=== PATIENT | female | born 1955 ===

== ENCOUNTER 2017-03-11 07:31 | Inpatient (IN) ==
--- NOTE | 2017-03-11 08:18 | XRay Report ---
History: Shortness of breath Date: 03/11/2017 Study: Chest x-ray AP portable Comparison exam: July 01, 2016 chest x-ray There is cardiomegaly as before. The metastatic contours are unchanged. The pulmonary vasculature is not engorged. There is some increasing ill-defined density in the left retrocardiac region which could represent atelectasis or infiltrate. The lungs and pleural spaces are otherwise clear. A right subclavian multiple lead transvenous pacemaker is stable. The osseous structures are similar. Impression: Mild left lower lobe atelectasis/infiltrate. Consider early pneumonia. Cardiomegaly. Pacemaker as before PROCEDURE INTERPRETED AT [facility] DEPARTMENT OF RADIOLOGY Final Report Signed by: Dr. Mallory Harper
--- NOTE | 2017-03-11 08:26 | Emergency Department Note ---
Iraj Cespedes Gwan, am scribing for, and in the presence of, Ronaldo Finnegan MD 08:09. Sivan Cespedes Phillip K, MD, personally performed the services described in this documentation, ascribed by Linda Galo in my presence, and it is both accurate and complete 826 . Arrival - Arrival Chief Complaint: Shortness of Breath Stated Complaint: transfer from [facility] sob ED Nursing Triage Note: PT TRANSFERRED FROM [facility] FOR EVALUATION OF SHORTNESS OF BREATH AND COUGHING UP BLOOD TINGED SPUTUM SINCE THURSDAY. PT IS DUE FOR DIALYSIS TODAY. GIVEN NTG X1 AND ASA AT [facility]. Mode of Arrival: Stretcher Limitations: No Limitations Source: Patient, Old Records Reviewed, RN Notes Reviewed - History of Present Illness HPI Narrative: Pt is a 61 y/o female who was brought into the ED vis EMS from [facility] for further evaluation of possible pneumonia. Pt has a PMHx of pacemaker, HTN, TIA, migraine , IDDM, RA, renal failure (M/W/F) and MRSA. Patient stated that her sxs have been vomiting, SOB that worsens with exertion and palpation and hemoptysis with some yello sputum as well. She continued to note that she is due to have dialysis today and she though that her sxs would ease enough for treatment but when she did not receive any relief, she was prompted to report to [facility]. While at [facility], pt stated that she received blood work, NTG x1, some Tylenol for her fever with relief and 4 low dose aspirin. She confirmed that she has a hx of heart attack, has had a heart cath performed [address] Johnson that resulted in a blockage and the pt received 4 stents. She is followed by Dr. Katz and Dr. Schumacher. Onset (ago): day(s) Consistency: constant Severity: moderate Allergies/Adverse Reactions: Allergies Allergy/AdvReac Type Severity Reaction Status Date / Time lisinopril Allergy Severe SHORTNESS Verified 03/11/17 07:39 OF BREATH Home Medications: Home Medications Medication Instructions Recorded Confirmed Type Carvedilol 6.25 mg PO BID 10/24/15 05/05/17 History Cinacalcet HCl [Sensipar] 180 mg PO DAILY W/SUPPER 10/24/15 05/05/17 History Insulin NPH/Regular 70/30 [HumuLIN 20 unit SUBCUT DAILY W/SUPPER 10/24/15 History 70/30] Insulin NPH/Regular 70/30 [HumuLIN 40 unit SUBCUT DAILY W/BREAKFAST 10/24/15 History 70/30] Isosorbide Mononitrate [Imdur] 30 mg PO DAILY 10/24/15 05/05/17 History NIFEdipine [Nifedipine ER] 60 mg PO DAILY 10/24/15 05/05/17 History Pantoprazole Tab [Protonix Tab] 40 mg PO DAILY 10/24/15 05/05/17 History Aspirin [Ecotrin] 325 mg PO DAILY 06/30/16 05/05/17 History Gabapentin Cap/Tab [Neurontin 100 mg PO BEDTIME PRN 06/30/16 05/05/17 History Cap/Tab] Lidocaine/Prilocaine 1 applic TOP WITH DIALYSIS 06/30/16 05/05/17 History [Lidocaine/Prilocaine 2.5%-2.5% Cream Kit] Loperamide Cap [Imodium Cap] 2 mg PO Q4HR PRN 06/30/16 05/05/17 History Phenytoin ER Cap [Dilantin Cap] 200 mg PO BID 06/30/16 05/05/17 History B-Complex with Vitamin C [Vitamin 1 each PO DAILY 03/11/17 05/05/17 History B-Complex with Vit C] Bisacodyl Tab [Dulcolax Tab] 10 mg PO DAILY PRN 03/11/17 05/05/17 History Cyclobenzaprine [Flexeril] 10 mg PO DAILY PRN 03/11/17 05/05/17 History Docusate Sodium Cap [Colace Cap] 100 mg PO BID 03/11/17 05/05/17 History Meclizine [Antivert] 12.5 mg PO DAILY PRN 03/11/17 05/05/17 History Atorvastatin [Lipitor] 20 mg PO BEDTIME 05/05/17 05/05/17 History Calcium Acetate [Phoslo] 2,001 mg PO TID W/MEALS 05/05/17 05/05/17 History Nitroglycerin 0.4 mg PO DIRECTED 05/05/17 05/05/17 History Clindamycin HCl [Clindamycin Cap] 300 mg PO QID #28 capsule 06/29/17 Rx Review of System - Review of System 12 point system: reviewed and no additional remarkable complaints except as stated - Review of System Constitutional: Present: as per HPI, fever. Absent: chills Eyes: Absent: discharge Head/Ears/Nose/Throat: Absent: earache Respiratory: Present: as per HPI, cough Cardiovascular: Present: as per HPI, chest pain Gastrointestinal: Present: as per HPI, vomiting. Absent: diarrhea Genitourinary female: Absent: dysuria Musculoskeletal: Absent: arm pain, back pain, leg pain, neck pain Medical,Surgical,& Family Hx - Medical History Cardio: History of: Hypertension, Pacemaker (STENT) Neurology: History of: Migraine, TIA No history of: Seizures HEENT: History of: Eye Problem (CATARACTS), Dental Problems (TOP DENTURE) Endocrine: History of: Diabetes Mellitus (IDDM) Rheumatology: History of;: Rheumatoid Arthritis Respiratory: History of: Respiratory Problems (SPOT ON LUNGS) Renal: History of: Dialysis, Renal Failure Other: History of: MRSA - Surgical History Cardiac Surgeries: Sugical HX of: Cardiac Catheterization (with stent placement) HEENT Surgeries: Surgical HX of: Eye Surgery (CATARACTS) Abdominal Surgeries: Surgical HX of: Abdominal Surgery (EXP LAP), Cholecystectomy, Colonoscopy Reproductive Surgeries: Surgical HX of;: Hysterectomy - Family History Family History: Reports;: Family Cancer (father), Family Diabetes (mother, grandmother,sister), Family Heart Disease (father,mother), Family Hypertension Denies;: Family Psychiatric Problems - Social History Smoking Status: Never smoker Frequency of Alcohol Use: None Type of Drug Use: None Exam Vital Signs: Vital Signs Temperature 98.1 F 03/15/17 08:00 Pulse Rate 64 03/15/17 08:00 Respiratory Rate 20 03/15/17 08:00 Blood Pressure 103/56 03/15/17 08:00 O2 Sat by Pulse Oximetry 92 L 03/15/17 08:00 - General General appearance: alert, in no apparent distress - Head Head exam: Present: atraumatic, normocephalic - Eye Eye exam: Present: normal appearance, PERRL, EOMI - ENT ENT exam: Present: normal oropharynx, mucous membranes moist, TM's normal bilaterally, normal external ear exam - Neck Neck exam: Present: full ROM, trachea midline. Absent: tenderness - Chest Chest inspection: Present: symmetric chest wall rise. Absent: tenderness - Respiratory Respiratory exam: Present: rales (bilateral bases) - Cardiovascular Cardiovascular exam: Present: normal rhythm - Abdominal Exam Abdominal exam: Present: tenderness (epigatric tenderness; diffuse tenderness to direct palpation) - Extremities Exam Extremities exam: Present: other (+2 bilateral edema) - Back Exam Back exam: Present: full ROM. Absent: tenderness - Neurological Exam Neurological exam: Present: alert, oriented X3, CN II-XII intact. Absent: motor sensory deficit - Psychiatric Psychiatric exam: Present: normal affect, normal mood - Skin Skin exam: Present: warm, dry, intact, normal color Course Course Narrative: Patient discussed with the hospitalist who will admit for further workup. Results - Labs CBC & BMP: 03/15/17 06:40 03/15/17 06:40 Lab Results: I have reviewed the patients labs (Labs reviewed from [facility].) Labs: Laboratory Tests 03/11/17 08:23 WBC 16.5 H RBC 3.22 L Hgb 10.9 L Hct 32.6 L Plt Count 102 L Neut % (Auto) 87.5 H Lymph % (Auto) 7.3 L Neut # (Auto) 14.5 H Lymph # (Auto) 1.2 L - Diagnostic Findings Procedure: Chest x-ray: report reviewed by me (Left lower lobe infiltrate) Disposition Clinical Impression: Left lower lobe pneumonia, Chest pain, End stage renal disease on dialysis Case discussed with: patient Disposition: Still a Patient Condition: Guarded
[2017-03-11] MEDS ORDERED: LEVOFLOXACIN INJ 500 MG in PREMIX 1 EACH IV STA (08:28)
[2017-03-11 08:31] LABS: Basophils % 0.2 % (0.0-0.8); Hematocrit 32.6 VOL% (35.7-47.0); Hemoglobin 10.9 GM/DL (12.0-16.0); Immature Granulocytes % 0.7 %; Immature Granulocytes Absolute 0.11 #; Lymphocytes # 1.2 10*3/uL (1.4-4.0); Lymphocytes % 7.3 % (21.3-54.2); Mean Corpuscular HGB Conc 33.4 GM/DL (32-36); Mean Corpuscular Hemoglobin 34 PG (27-34); Mean Corpuscular Volume 101.2 FL (87-102); Mean Platelet Volume 11.5 FL (9.6-12.0); Monocytes # 0.7 10*3/uL (0.11-0.8); Monocytes % 4.3 % (1.7-12.7); Neutrophils # 14.5 10*3/uL (1.4-7.4); Neutrophils % 87.5 % (38.7-73.9); Platelet Count 102 T/CUMM (130-400); Red Blood Count 3.22 MC/CUMM (3.8-5.5); Red Cell Distribution Width 14.6 % (9.3-17.3); White Blood Count 16.5 T/CUMM (4-12)
--- NOTE | 2017-03-11 08:43 | EKG Report ---
Stationary ECG Study [facility] Test Date: 03/11/2017 7:48:45 AM Pat Name: LUDMILA ROSE Department: Room: EDWAIT Gender: F [employer] Supervisor: : 1955 Requested by: Balaji Martel Order Number: [id number] Reading MD: JUANITO LEMA Intervals [place] Rate: 70 P: 52 VT: 178 QRS: -27 QRSD: 121 T: 68 QT: 448 QTc: 469 Interpretive Statements ELECTRONIC VENTRICULAR PACEMAKER ABNORMAL RHYTHM ECG Electronically Signed On 03-11-17 14:25:28 CDT by JUANITO LEMA [email or web address]
[2017-03-11] MEDS ORDERED: LEVOFLOXACIN INJ 100 ML IV ONE (09:08)
[2017-03-11 09:12] LABS: Bilirubin,Total 0.9 MG/DL (0.2-1.0); Calcium 9.2 MG/DL (8.5-10.1); Osmolality,Calculated 275.5 MOS/KG (273-304); Potassium 4.6 MMOL/L (3.5-5.1); Total Protein 7.8 G/DL (6.4-8.3)
[2017-03-11 09:13] LABS: Troponin I Only 0.16 NG/ML (0.00-0.045)
--- NOTE | 2017-03-11 10:30 | Hospitalist History & Physical ---
<Parminder Carbajal - Last Filed: 03/11/17 10:52> Assessment and Plan (1) Chest pain Status: Acute Assessment and plan: Initial troponin ; will obtain serial enzymes. Will consult Cardiology if enzymes are positive. Reports episodes of hemoptysis; we will consult pulmonary to evaluate. Current Visit: Yes (2) End stage renal disease on dialysis Status: Acute Assessment and plan: We will consult Nephrology to manage. Current Visit: Yes History of Present Illness Chief complaint: shortness of breath, nausea and vomiting History of present illness: This is a 61 year old Female that presented to the ED at [facility] as a lateral transfer from [facility] for the evaluation of pneumonia, shortness of breath, nausea,and vomiting. The patient has a rather impressive medical history significant for hypertension, myocardial infarction, rheumatoid arthritis, coronary artery disease, diabetes mellitus, end-stage renal disease, migraine headaches, transient ischemic attack, and MRSA infection. She has a surgical history of cardiac catheterization with stent placement,pacemaker placement, hysterectomy, exploratory laparotomy, cholecystectomy, and cataract removal. The patient reported the onset of symptoms on yesterday. She reports multiple episodes of nausea and vomiting and intermittent fever. She reports shortness of breath with minimal excertion. She reported that the emesis was yellow in color; however she had a few episodes of hemoptysis at different times. She currently undergoes hemodialysis on and is usually followed by Dr. Katz and Dr. Schumacher. Her symptoms became very severe this morning prompting her to present to the ED for further evaluation. At the [facility], she a full cardiac work-up was performed; she was given nitroglycerin, Tylenol, and aspirin. She was transferred to [facility] for further evaluation. At the time of presentation to [facility], labs were obtained which revealed a noted elevation in her WBC's at 16.5 and BUN/Creatinine of 50 and 7.40. Chest radiograph was obtained which revealed mild left lower lobe atelectasis infiltrate and cardiomegaly. After discussion with both Dr. Finnegan and Dr. Martel, the patient will be admitted to the hospitalist services for continuation of care. We will consult pulmonary and cardiology to assist. Home Medications Medication Instructions Recorded Confirmed Type Carvedilol 6.25 mg PO BID 10/24/15 03/11/17 History Cinacalcet HCl [Sensipar] 180 mg PO DAILY W/SUPPER 10/24/15 03/11/17 History Docusate Sodium 100 mg PO BID 10/24/15 03/11/17 History Insulin NPH/Regular 70/30 [HumuLIN 20 unit SUBCUT DAILY W/SUPPER 10/24/15 History 70/30] Insulin NPH/Regular 70/30 [HumuLIN 40 unit SUBCUT DAILY W/BREAKFAST 10/24/1501/23 History 70/30] Isosorbide Mononitrate [Imdur] 30 mg PO DAILY 10/24/15 03/11/17 History NIFEdipine [Nifedipine ER] 60 mg PO DAILY 10/24/15 03/11/17 History Pantoprazole Tab [Protonix Tab] 40 mg PO DAILY 10/24/15 03/11/17 History Aspirin [Ecotrin] 325 mg PO DAILY 06/30/16 03/11/17 History Gabapentin Cap/Tab [Neurontin 100 mg PO BEDTIME PRN 06/30/16 03/11/17 History Cap/Tab] Lidocaine/Prilocaine 1 applic TOP WITH DIALYSIS 06/30/16 03/11/17 History [Lidocaine/Prilocaine 2.5%-2.5% Cream Kit] Loperamide Cap [Imodium Cap] 2 mg PO Q4HR PRN 06/30/16 03/11/17 History Phenytoin ER Cap [Dilantin Cap] 200 mg PO BID 06/30/16 03/11/17 History B-Complex with Vitamin C [Vitamin 1 each PO DAILY 03/11/17 03/11/17 History B-Complex with Vit C] Bisacodyl Tab [Dulcolax Tab] 10 mg PO DAILY PRN 03/11/17 03/11/17 History Cyclobenzaprine [Flexeril] 10 mg PO DAILY PRN 03/11/17 03/11/17 History Docusate Sodium Cap [Colace Cap] 100 mg PO BID 03/11/17 03/11/17 History Meclizine [Antivert] 12.5 mg PO DAILY PRN 03/11/17 03/11/17 History Allergies Allergy/AdvReac Type Severity Reaction Status Date / Time lisinopril Allergy Severe SHORTNESS Verified 03/11/17 07:39 OF BREATH Medical,Surgical,& Family Hx - Medical History Cardio: History of: Hypertension, Pacemaker (STENT) Neurology: History of: Migraine, Seizures, TIA HEENT: History of: Eye Problem (CATARACTS), Dental Problems (TOP DENTURE) Endocrine: History of: Diabetes Mellitus (IDDM) Rheumatology: History of;: Rheumatoid Arthritis Respiratory: History of: Respiratory Problems (SPOT ON LUNGS) Renal: History of: Dialysis (MWF), Renal Failure Gastrointestinal: History of: GERD, GI Problems (IBS , constipation) Other: History of: MRSA - Surgical History Cardiac Surgeries: Sugical HX of: Cardiac Catheterization (with stent placement) HEENT Surgeries: Surgical HX of: Eye Surgery (CATARACTS) Abdominal Surgeries: Surgical HX of: Abdominal Surgery (EXP LAP), Cholecystectomy, Colonoscopy Reproductive Surgeries: Surgical HX of;: Hysterectomy - Family History Family History: Reports;: Family Cancer (father), Family Diabetes (mother, grandmother,sister), Family Heart Disease (father,mother), Family Hypertension Denies;: Family Psychiatric Problems - Social History Smoking Status: Never smoker Frequency of Alcohol Use: None Type of Drug Use: None 12 point system: reviewed and no additional remarkable complaints except as stated Exam - Constitutional Vitals: Period Temp Pulse Resp BP Sys/Wang Pulse Ox Last 24 Hr 97.4 F 70-77 18-20 148-168/42-71 98-99 General appearance: normal weight, mild distress - Head Head exam: Present: normal inspection, normocephalic, atraumatic - Eye Eye exam: Present: EOMI, conjunctival injection Pupils: Present: TAYLOR, normal accommodation - ENT ENT exam: Present: normal exam, normal external ear exam, normal oropharynx - Neck Neck exam: Present: normal inspection. Absent: lymphadenopathy, meningismus, tenderness, thyromegaly - Respiratory Respiratory exam: Present: decreased breath sounds (left lower lung), rales - Cardiovascular Cardiovascular exam: Present: regular rate and rhythm. Absent: carotid bruit, diastolic murmur, gallop, JVD, rubs, systolic murmur - GI/Abdominal GI/Abdominal exam: Present: hypoactive bowel sounds, tenderness - Extremities Exam Extremities exam: Present: normal inspection, normal capillary refill, full ROM - Back Exam Back exam: Present: normal inspection - Neurological Exam Neurological exam: Present: alert, oriented X3 - Psychiatric Psychiatric exam: Present: normal affect - Skin Skin exam: Present: normal color, dry Results - Labs CBC & BMP: 03/11/17 08:23 03/11/17 08:23 Lab Results: I have reviewed the past 24 hour labs <Balaji Martel - Last Filed: 03/11/17 13:23> History of Present Illness History of present illness: Ms. Ardon is a 61 year old female Exam - Constitutional Vitals: Period Temp Pulse Resp BP Sys/Wang Pulse Ox Last 24 Hr 97.4 F-98.7 F 70-79 18-22 148-168/42-71 97-99 Results - Labs CBC & BMP: 03/11/17 08:23 03/11/17 08:23
[2017-03-11] MEDS: ACETAMINOPHEN 325 MG TABLET PO PRN (16:15)
--- NOTE | 2017-03-11 17:14 | Pulmonology Consult Note ---
Assessment and Plan (1) Hemoptysis Status: Acute Assessment and plan: She has had recurrent episodes of hemoptysis over the last year. Had a negative bronchoscopy a year ago. She needs another bronchoscopy. She needs a CT scan of the chest. Will get it with PE protocol to be sure she is not having emboli. Also need to be sure whether that is a pneumonia in the left lower lobe. We will plan bronchoscopy in the morning. Current Visit: Yes (2) Diabetes mellitus Status: Acute Assessment and plan: Sliding scale insulin defer to primary service. Current Visit: Yes (3) Status post coronary artery stent placement Status: Acute Assessment and plan: She had a stent placed about 2 weeks ago she says. Apparently only on baby aspirin but she told me she was taking Plavix. This may have something to do with hemoptysis. Dr. Johnson did the stent. Current Visit: Yes (4) Left lower lobe pneumonia Status: Acute Assessment and plan: Likely community-acquired pneumonia in an immunocompromised host. Will add cefepime to the Levaquin. Current Visit: Yes (5) End stage renal disease on dialysis Status: Acute Assessment and plan: Gets dialysis on Thursday and is due for dialysis today. Defer to nephrology. Current Visit: Yes History of Present Illness Chief complaint: Hemoptysis History of present illness: Ms. Ardon is a 61 year old female who has a history of coughing up blood off and on for over a year. She had a negative bronchoscopy [address] Quevedo. She had the acute onset this time of some pain in her chest cough and bright red hemoptysis. This been going on for about 3 days. She has had it mixed in with some phlegm the last day or so. She is a dialysis patient. She denies smoking. She has a coronary stent in place. Today is her dialysis day and she has not had it as yet. Home Medications Medication Instructions Recorded Confirmed Type Carvedilol 6.25 mg PO BID 10/24/15 03/11/17 History Cinacalcet HCl [Sensipar] 180 mg PO DAILY W/SUPPER 10/24/15 03/11/17 History Docusate Sodium 100 mg PO BID 10/24/15 03/11/17 History Insulin NPH/Regular 70/30 [HumuLIN 20 unit SUBCUT DAILY W/SUPPER 10/24/15 History 70/30] Insulin NPH/Regular 70/30 [HumuLIN 40 unit SUBCUT DAILY W/BREAKFAST 10/24/1501/23 History 70/30] Isosorbide Mononitrate [Imdur] 30 mg PO DAILY 10/24/15 03/11/17 History NIFEdipine [Nifedipine ER] 60 mg PO DAILY 10/24/15 03/11/17 History Pantoprazole Tab [Protonix Tab] 40 mg PO DAILY 10/24/15 03/11/17 History Aspirin [Ecotrin] 325 mg PO DAILY 06/30/16 03/11/17 History Gabapentin Cap/Tab [Neurontin 100 mg PO BEDTIME PRN 06/30/16 03/11/17 History Cap/Tab] Lidocaine/Prilocaine 1 applic TOP WITH DIALYSIS 06/30/16 03/11/17 History [Lidocaine/Prilocaine 2.5%-2.5% Cream Kit] Loperamide Cap [Imodium Cap] 2 mg PO Q4HR PRN 06/30/16 03/11/17 History Phenytoin ER Cap [Dilantin Cap] 200 mg PO BID 06/30/16 03/11/17 History B-Complex with Vitamin C [Vitamin 1 each PO DAILY 03/11/17 03/11/17 History B-Complex with Vit C] Bisacodyl Tab [Dulcolax Tab] 10 mg PO DAILY PRN 03/11/17 03/11/17 History Cyclobenzaprine [Flexeril] 10 mg PO DAILY PRN 03/11/17 03/11/17 History Docusate Sodium Cap [Colace Cap] 100 mg PO BID 03/11/17 03/11/17 History Meclizine [Antivert] 12.5 mg PO DAILY PRN 03/11/17 03/11/17 History Allergies Allergy/AdvReac Type Severity Reaction Status Date / Time lisinopril Allergy Severe SHORTNESS Verified 03/11/17 07:39 OF BREATH 12 point system: reviewed and no additional remarkable complaints except as stated - Constitutional Constitutional: Present: fatigue - Cardiovascular Cardiovascular: Present: chest pain at rest (Had coronary stent about 2 weeks ago.), dyspnea, dyspnea on exertion, edema - Respiratory Respiratory: Present: cough, dyspnea, hemoptysis, dyspnea on exertion, change in phlegm color - Genitourinary Genitourinary: Present: other (Chronic renal failure on dialysis) - Endocrine Endocrine: Present: other (Insulin requiring diabetes) Exam (P[place]monay) H&P - Constitutional Vitals: Period Temp Pulse Resp BP Sys/Wang Pulse Ox Last 24 Hr 97.4 F-99.4 F 58-79 18-22 143-168/42-71 95-99 Exam: She is alert. She is finding herself. Vital signs normal. Appears a bit diaphoretic. Pupils react to light. Throat is clear. Neck supple no bruits. Chest reveals some rales in both bases. Heart normal rate rhythm no murmurs. Abdomen soft nontender no masses. Extremities no clubbing cyanosis or edema. Calves nontender Medical,Surgical,& Family Hx - Medical History Cardio: History of: Hypertension, Pacemaker (STENT) Neurology: History of: Migraine, Seizures, TIA HEENT: History of: Eye Problem (CATARACTS), Dental Problems (TOP DENTURE) Endocrine: History of: Diabetes Mellitus (IDDM) Rheumatology: History of;: Rheumatoid Arthritis Respiratory: History of: Respiratory Problems (SPOT ON LUNGS) Renal: History of: Dialysis (MWF), Renal Failure Gastrointestinal: History of: GERD, GI Problems (IBS , constipation) Other: History of: MRSA - Surgical History Cardiac Surgeries: Sugical HX of: Cardiac Catheterization (with stent placement) HEENT Surgeries: Surgical HX of: Eye Surgery (CATARACTS) Abdominal Surgeries: Surgical HX of: Abdominal Surgery (EXP LAP), Cholecystectomy, Colonoscopy Reproductive Surgeries: Surgical HX of;: Hysterectomy - Family History Family History: Reports;: Family Cancer (father), Family Diabetes (mother, grandmother,sister), Family Heart Disease (father,mother), Family Hypertension Denies;: Family Psychiatric Problems - Social History Smoking Status: Never smoker Frequency of Alcohol Use: None Type of Drug Use: None Results - Labs CBC & BMP: 03/11/17 08:23 03/11/17 08:23 Lab Results: I have reviewed the past 24 hour labs - Diagnostic Findings Procedure: Chest x-ray: image reviewed by me (Probable patch of pneumonia in left lower lobe. Mild cardiomegaly.)
[2017-03-11] MEDS ORDERED: DEXTROMETHORPHAN ER 6 MG/ML 90 ML/BOTTLE PO PRN (17:18)
[2017-03-11 18:34] LABS: INR 1.2; PT Patient Result 12.9 SECS
[2017-03-11] MEDS: CEFEPIME 500 MG in SODIUM CHLORIDE 0.9% 100 ML IV SCH (19:11)
--- NOTE | 2017-03-11 19:19 | Nephrology Consult Note ---
History of Present Illness Chief complaint: End-stage renal disease History of present illness: Ms. Ardon is a 61 year old female with history of end-stage renal disease due to hypertension and diabetes has history of coronary artery disease had a stent placed several weeks ago. Patient present with recurrent hemoptysis. And she is also had a evidence of early pneumonia by chest x-ray done today. Pulmonary has seen the patient has recommended further workup. There is been no change in patient's medicines. Patient typically dialyzes on a Thursday schedule at the [place] [facility] dialysis unit. She last dialyzed on Thursday. Home Medications Medication Instructions Recorded Confirmed Type Carvedilol 6.25 mg PO BID 10/24/15 03/11/17 History Cinacalcet HCl [Sensipar] 180 mg PO DAILY W/SUPPER 10/24/15 03/11/17 History Docusate Sodium 100 mg PO BID 10/24/15 03/11/17 History Insulin NPH/Regular 70/30 [HumuLIN 20 unit SUBCUT DAILY W/SUPPER 10/24/15 History 70/30] Insulin NPH/Regular 70/30 [HumuLIN 40 unit SUBCUT DAILY W/BREAKFAST 10/24/1501/23 History 70/30] Isosorbide Mononitrate [Imdur] 30 mg PO DAILY 10/24/15 03/11/17 History NIFEdipine [Nifedipine ER] 60 mg PO DAILY 10/24/15 03/11/17 History Pantoprazole Tab [Protonix Tab] 40 mg PO DAILY 10/24/15 03/11/17 History Aspirin [Ecotrin] 325 mg PO DAILY 06/30/16 03/11/17 History Gabapentin Cap/Tab [Neurontin 100 mg PO BEDTIME PRN 06/30/16 03/11/17 History Cap/Tab] Lidocaine/Prilocaine 1 applic TOP WITH DIALYSIS 06/30/16 03/11/17 History [Lidocaine/Prilocaine 2.5%-2.5% Cream Kit] Loperamide Cap [Imodium Cap] 2 mg PO Q4HR PRN 06/30/16 03/11/17 History Phenytoin ER Cap [Dilantin Cap] 200 mg PO BID 06/30/16 03/11/17 History B-Complex with Vitamin C [Vitamin 1 each PO DAILY 03/11/17 03/11/17 History B-Complex with Vit C] Bisacodyl Tab [Dulcolax Tab] 10 mg PO DAILY PRN 03/11/17 03/11/17 History Cyclobenzaprine [Flexeril] 10 mg PO DAILY PRN 03/11/17 03/11/17 History Docusate Sodium Cap [Colace Cap] 100 mg PO BID 03/11/17 03/11/17 History Meclizine [Antivert] 12.5 mg PO DAILY PRN 03/11/17 03/11/17 History Allergies Allergy/AdvReac Type Severity Reaction Status Date / Time lisinopril Allergy Severe SHORTNESS Verified 03/11/17 07:39 OF BREATH Medical,Surgical,& Family Hx - Medical History Cardio: History of: Hypertension, Pacemaker (STENT) Neurology: History of: Migraine, Seizures, TIA HEENT: History of: Eye Problem (CATARACTS), Dental Problems (TOP DENTURE) Endocrine: History of: Diabetes Mellitus (IDDM) Rheumatology: History of;: Rheumatoid Arthritis Respiratory: History of: Respiratory Problems (SPOT ON LUNGS) Renal: History of: Dialysis (MWF), Renal Failure Gastrointestinal: History of: GERD, GI Problems (IBS , constipation) Other: History of: MRSA - Surgical History Cardiac Surgeries: Sugical HX of: Cardiac Catheterization (with stent placement) HEENT Surgeries: Surgical HX of: Eye Surgery (CATARACTS) Abdominal Surgeries: Surgical HX of: Abdominal Surgery (EXP LAP), Cholecystectomy, Colonoscopy Reproductive Surgeries: Surgical HX of;: Hysterectomy - Family History Family History: Reports;: Family Cancer (father), Family Diabetes (mother, grandmother,sister), Family Heart Disease (father,mother), Family Hypertension Denies;: Family Psychiatric Problems - Social History Smoking Status: Never smoker Frequency of Alcohol Use: None Type of Drug Use: None Review of Systems Constitutional: fatigue Cardiovascular: no chest pain at rest, no chest pain with activity Respiratory: cough, dyspnea, hemoptysis Gastrointestinal: no abdominal pain Neurological: no abnormal gait Exam - Vital Signs Vital signs: Period Temp Pulse Resp BP Sys/Wang Pulse Ox Last 24 Hr 97.4 F-99.4 F 58-79 18-22 143-168/42-71 95-99 - General Appearance General appearance: well-developed, well-nourished EENT: ATNC Cardiology: regular rate, regular rhythm Gastrointestinal: normoactive bowel sounds, no tenderness Neurologic: alert and oriented x3 Musculoskeletal: no clubbing Psychiatric: mood/affect appropriate Results - Labs CBC & BMP: 03/11/17 08:23 03/11/17 08:23 Assessment and Plan (1) End stage renal disease on dialysis Status: Chronic Assessment and plan: Continue with scheduled hemodialysis. Current Visit: Yes (2) Hemoptysis Status: Acute Assessment and plan: This is being further evaluated by pulmonary. Current Visit: Yes (3) Diabetes mellitus Status: Chronic Current Visit: Yes Qualifiers: Diabetes mellitus type: type 2 Chronic kidney disease stage: on chronic dialysis (4) Status post coronary artery stent placement Status: Chronic Current Visit: Yes
--- NOTE | 2017-03-11 19:37 | CT Report ---
Exam: CT chest PE study The total DLP is 514 mGy*cm. Date: 03/11/2017 5:09 PM Indication: Hemoptysis, embolism versus pneumonia Comparison: CT chest 01/11/2016 Technical: Images were obtained from the thoracic inlet through the lung bases with 80 cc of Omnipaque 350 with axial and coronal imaging available for review. Dose reduction: This CT exam was performed using one or more of the following dose reduction techniques: Automated exposure control, automated adjustment of the mA and/or KV according to patient size, or use of iterative reconstruction technique. Findings: Pulmonary arteries: Pulmonary arteries are patent and well-opacified with no filling defects to suggest pulmonary emboli. Distal segmental/subsegmental pulmonary arteries are poorly evaluated due to contrast bolus timing and/or patient motion. Mediastinum/vessels/lymph nodes: Heart and great vessels appear unremarkable. There is no evidence of pericardial effusion. The aorta and great vessels appear widely patent. There is no adenopathy in the chest. Lungs: There are multilevel areas of ground glass opacity within the bilateral lower lobes, with minimal similar findings within the left upper lobe, which are compatible with multifocal pneumonia. There is no pneumothorax or pleural effusion. No suspicious pulmonary nodules or masses are identified. Thyroid: Thyroid gland appears within normal limits. No acute abnormality is identified within the visualized upper abdomen. BONES: No acute or suspicious appearing osseous abnormalities are identified. Impression: 1. No evidence of pulmonary emboli. 2. Bilateral pneumonia as detailed above. PROCEDURE INTERPRETED AT [facility] DEPARTMENT OF RADIOLOGY Final Report Signed by: Earle Callahan
[2017-03-12] MEDS: CEFEPIME 500 MG in SODIUM CHLORIDE 0.9% 100 ML IV SCH ×2 (06:28→18:46)
--- NOTE | 2017-03-12 07:29 | Pulmonology Progress Note ---
Pulmonary - PN: Subj Interval history: This 61-year-old lady has had recurrent episodes of hemoptysis. Her CT scan shows bilateral lower lobe infiltrates worse in the left base consistent with pneumonia. Plans are for bronchoscopy this morning to evaluate source of bleeding. She did not have any emboli on the CT PE protocol. Exam (Progress Note) - Constitutional Vitals: Period Temp Pulse Resp BP Sys/Wang Pulse Ox Last 24 Hr 97.1 F-99.4 F 58-79 18-22 131-168/42-71 90-99 Exam: Patient is alert oriented afebrile. Vital signs normal. Pupils react to light. Throat clear. Neck supple bruits. Chest reveals some crackles at the bases worse at the left side. Heart normal rate and rhythm no murmurs. Abdomen soft nontender no masses. Bowel sounds present. She is obese and I am unable to palpate abdominal organs. Extremities no clubbing or cyanosis. Trace of edema. Calves nontender. Results - Labs CBC & BMP: 03/11/17 08:23 03/11/17 08:23 Lab Results: I have reviewed the past 24 hour labs - Diagnostic Findings Procedure: CT - chest: image reviewed by me (Probable consolidation at the left lower lobe more so than the right lower lobe. No pulmonary emboli.) Assessment and Plan (1) Hemoptysis Status: Acute Assessment and plan: She has had recurrent episodes of hemoptysis over the last year. Had a negative bronchoscopy a year ago. She needs another bronchoscopy. She needs a CT scan of the chest. Will get it with PE protocol to be sure she is not having emboli. Also need to be sure whether that is a pneumonia in the left lower lobe. We will plan bronchoscopy in the morning. 03/12/2017 likely due to hemorrhagic pneumonia. Bronchoscopy planned today. She has had recurrent episodes. Current Visit: Yes (2) Diabetes mellitus Status: Chronic Assessment and plan: Sliding scale insulin defer to primary service. 03/12/2017 continuing sliding scale insulin. Glucoses look okay. Current Visit: Yes Qualifiers: Diabetes mellitus type: type 2 Chronic kidney disease stage: on chronic dialysis (3) Status post coronary artery stent placement Status: Chronic Assessment and plan: She had a stent placed about 2 weeks ago she says. Apparently only on baby aspirin but she told me she was taking Plavix. This may have something to do with hemoptysis. Dr. Johnson did the stent. 03/12/2017 no angina. Current Visit: Yes (4) Left lower lobe pneumonia Status: Acute Assessment and plan: Likely community-acquired pneumonia in an immunocompromised host. Will add cefepime to the Levaquin. 03/12/2017 actually has bibasilar pneumonia but it is worse at the left base. Will brush this area at bronchoscopy today. Current Visit: Yes (5) End stage renal disease on dialysis Status: Chronic Assessment and plan: Gets dialysis on Thursday and is due for dialysis today. Defer to nephrology. Current Visit: Yes
[2017-03-12] MEDS ORDERED: PROMETHAZINE 25 MG/1 ML VIAL IM ONE (07:30)
[2017-03-12] MEDS ORDERED: MEPERIDINE 50 MG/1 ML VIAL IM ONE (07:30)
[2017-03-12] MEDS ORDERED: MIDAZOLAM 2 MG/2 ML VIAL IV ONE (08:00)
[2017-03-12] MEDS ORDERED: LIDOCAINE 1% 20 ML VIAL MISC INJ ONE (08:00)
--- NOTE | 2017-03-12 09:21 | Operative Note ---
Date of procedure: 03/12/17 (Fiberoptic bronchoscopy with brushings of both lower lobes and washings) Pre-op diagnosis: Hemoptysis, pneumonia Post-op diagnosis: same (Probably hemorrhagic pneumonia) Procedure: After an appropriate time out to be sure we were dealing with Maria M Ardon, the patient was topically anesthetized in the nose and nasopharynx with Xylocaine. She had been given intramuscular preoperative medications on the medina. 3 L of nasal oxygen was placed in her left naris. She was given 2 mg of Versed intravenously to the point of sedation. The fiberoptic bronchoscope was introduced via the right naris. The vocal cords were identified and noted to function normally with phonation. After further topical anesthesia the trachea was entered and was free of lesions. The moody was sharp. There were slightly increased secretions in the lower lobes otherwise there were no endobronchial lesions to the subsegmental level on either side. There were no bleeding sites. No blood noted in the tracheobronchial tree. The bronchoscope was positioned in the left lower lobe where it we obtained brushings from 2 different basilar segments. We then moved to the right lower lobe and obtained brushings from 2 different basilar segments. They were the lateral and posterior basilar segments on each side. There was no bleeding following the brushings. Bronchial washings were obtained. The bronchoscope was removed. Patient returned to her room in stable condition. Anesthesia: conscious sedation Surgeon / Physician: Alexx Espinoza Estimated blood loss: none Specimens: other (Bronchial washings, right and left lower lobe brushings) Condition: stable Disposition: floor Results - Labs CBC & BMP: 03/11/17 08:23 03/11/17 08:23 Discharge Plan - Discharge Medications No Action NIFEdipine [Nifedipine ER] 60 mg PO DAILY Isosorbide Mononitrate [Imdur] 30 mg PO DAILY Insulin NPH/Regular 70/30 [HumuLIN 70/30] 20 unit SUBCUT DAILY W/SUPPER Insulin NPH/Regular 70/30 [HumuLIN 70/30] 40 unit SUBCUT DAILY W/BREAKFAST Docusate Sodium 100 mg PO BID Carvedilol 6.25 mg PO BID Cinacalcet HCl [Sensipar] 180 mg PO DAILY W/SUPPER Pantoprazole Tab [Protonix Tab] 40 mg PO DAILY Phenytoin ER Cap [Dilantin Cap] 200 mg PO BID Aspirin [Ecotrin] 325 mg PO DAILY Gabapentin Cap/Tab [Neurontin Cap/Tab] 100 mg PO BEDTIME PRN PRN Reason: neuropathy Lidocaine/Prilocaine [Lidocaine/Prilocaine 2.5%-2.5% Cream Kit] 1 applic TOP WITH DIALYSIS Loperamide Cap [Imodium Cap] 2 mg PO Q4HR PRN PRN Reason: Diarrhea Bisacodyl Tab [Dulcolax Tab] 10 mg PO DAILY PRN PRN Reason: Constipation Meclizine [Antivert] 12.5 mg PO DAILY PRN PRN Reason: Dizziness Cyclobenzaprine [Flexeril] 10 mg PO DAILY PRN PRN Reason: Muscle Pain Docusate Sodium Cap [Colace Cap] 100 mg PO BID B-Complex with Vitamin C [Vitamin B-Complex with Vit C] 1 each PO DAILY - Follow Up or Referral - Forms/Instructions
[2017-03-12] MEDS ORDERED: MIDAZOLAM 2 MG/2 ML VIAL ONE (09:59)
--- NOTE | 2017-03-12 10:26 | Hospitalist Progress Note ---
Assessment and Plan - Time spent with patient Time spent with patient: Less than 30 minutes (1) Left lower lobe pneumonia Status: Acute Assessment and plan: 61-year-old female admitted to the hospitalist service with shortness of breath and cough with hemoptysis. Patient has end-stage renal disease on hemodialysis patient along with diabetes and hypertension. Dr. Flores to see and examine patient and further recommendations to follow. Pneumonia/cough with hemoptysis--Dr. Espinoza has been consulted and performed a fiberoptic bronchoscopy with brushings of both lower lobes and washings this morning. He did not see any signs of active bleeding sites and she had no bleeding following the brushings. Her postop diagnosis is probably hemorrhagic pneumonia. Patient is feeling better today with no complaints of shortness of breath or chest pain. She is currently on cefepime and Levaquin. CAD status post stent placement/elevated troponins--patient is status post WA with stent placement around 2 weeks ago per patient. Nothing is found in her records for this. Her elevated troponins most likely from this in combination with the pneumonia. We will go ahead and recheck a troponin just to make sure that this is stable. Patient states she was also taking Plavix. Dr. Johnson did her stent. Her Plavix is being held. Restarted all of her home medicines but Plavix was not listed as a home med. Diabetes--her blood sugars are running from 139-219. She is on a diabetic diet. Her home medicines have been restarted and sliding scale insulin has been initiated.. Will continue to monitor. Hypertension--her blood pressures are borderline high at this time. Went ahead and restarted her home medicines. History of seizures--her Dilantin has been restarted. Current Visit: Yes (2) End stage renal disease on dialysis Status: Chronic Current Visit: Yes (3) Hemoptysis Status: Acute Current Visit: Yes (4) Diabetes mellitus Status: Chronic Current Visit: Yes Qualifiers: Diabetes mellitus type: type 2 Chronic kidney disease stage: on chronic dialysis Hospitalist: Subjective Interval history: Patient states she is doing well this morning. She has no complaints of chest pain or shortness of breath. She underwent bronchoscopy this morning by Dr. Espinoza and is still very sleepy but easily arousable. Exam - Constitutional Vitals: Period Temp Pulse Resp BP Sys/Wang Pulse Ox Last 24 Hr 97.1 F-99.4 F 58-79 13-20 131-193/52-100 90-99 Exam: 61-year-old female, no acute distress, alert and oriented Chest clear CV regular rate and rhythm Abdomen soft and nontender Extremities no edema Results - Labs CBC & BMP: 03/11/17 08:23 03/11/17 08:23 Lab Results: I have reviewed the past 24 hour labs
[2017-03-12] MEDS ORDERED: GABAPENTIN 100 MG CAPSULE PO PRN (10:33)
[2017-03-12] MEDS ORDERED: BISACODYL 5 MG TABLET PO PRN (10:33)
[2017-03-12] MEDS ORDERED: MECLIZINE 12.5 MG TABLET PO PRN (10:33)
[2017-03-12] MEDS ORDERED: CYCLOBENZAPRINE 10 MG TABLET PO PRN (10:33)
[2017-03-12] MEDS ORDERED: LOPERAMIDE 2 MG CAPSULE PO PRN (10:33)
[2017-03-12] MEDS ORDERED: LIDOCAINE/PRILOCAINE CREAM 5 GM TUBE TOP PRN (10:45)
[2017-03-12] MEDS ORDERED: ASPIRIN EC 325 MG TABLET PO SCH (11:00)
[2017-03-12] MEDS: PHENYTOIN ER 100 MG CAPSULE PO SCH ×2 (11:30→20:25)
[2017-03-12] MEDS: MULTIVITAMIN (BEROCCA) TABLET PO SCH (11:30)
[2017-03-12] MEDS: CARVEDILOL 6.25 MG TABLET PO SCH ×2 (11:30→20:23)
[2017-03-12] MEDS: PANTOPRAZOLE 40 MG TABLET PO SCH (11:31)
[2017-03-12] MEDS: ISOSORBIDE MONONITRATE 30 MG TABLET PO SCH (11:31)
[2017-03-12] MEDS: DOCUSATE SODIUM 100 MG CAPSULE PO SCH ×2 (11:31→20:23)
[2017-03-12] MEDS: INSULIN NPH/REGULAR 70/30 100 UNIT/ML SUBCUT SCH ×2 (11:31→17:41)
--- NOTE | 2017-03-12 12:04 | Cardiology Consult Note ---
Assessment and Plan - Time spent with patient Time spent with patient: Greater than 30 minutes (1) Hemorrhagic pneumonia Status: Acute Assessment and plan: Plan of care listed below Current Visit: Yes (2) Hypertension Status: Chronic Assessment and plan: Plan of care listed below Current Visit: Yes (3) Dyslipidemia Status: Chronic Assessment and plan: Plan of care listed below Current Visit: Yes (4) Abdominal pain Status: Acute Assessment and plan: Plan of care listed below Current Visit: Yes (5) Elevated troponin Status: Chronic Assessment and plan: Plan of care listed below Current Visit: Yes (6) Chest pain Status: Resolved Assessment and plan: Plan of care listed below Current Visit: Yes (7) Hemoptysis Status: Acute Assessment and plan: Plan of care listed below Current Visit: Yes (8) Diabetes mellitus Status: Chronic Current Visit: Yes Qualifiers: Diabetes mellitus type: type 2 Chronic kidney disease stage: on chronic dialysis (9) End stage renal disease on dialysis Status: Chronic Assessment and plan: Plan of care listed below Current Visit: Yes (10) Status post coronary artery stent placement Status: Chronic Assessment and plan: Plan of care listed below Current Visit: Yes (11) Carotid bruit Status: Acute Assessment and plan: Plan of care listed below Current Visit: Yes Qualifiers: Laterality: bilateral Qualified Code(s): R09.89 - Other specified symptoms and signs involving the circulatory and respiratory systems History of Present Illness - Data of Consult Patient: known to practice within the last 3 years Consult date: 03/12/17 Requesting Physician: Elpidio Johnson - Consult Narrative Reason for consult: Hemoptysis on Plavix, known coronary artery disease History of present illness: PULMONARY FUNCTION TECHNICIAN: DR. JOHNSON PCP: [facility] Ms. Ardon, 61ChF, routinely followed by Dr. Johnson. Risk factors include: known coronary artery disease, hypertension, dyslipidemia, diabetes, sedentary lifestyle, and obesity. She has a history of end-stage renal disease on hemodialysis (M-W-F), status post permanent pacemaker implantation for symptomatic bradycardia. She was last seen in cardiology clinic March 05, 2017. Last cardiac catheterization January 24, 2016 reveals the following: widely patent stents in the left anterior descending and right coronary arteries. There was high-grade stenosis in the first diagonal branch which was being medically managed due to highly tortuous vessel. She recently underwent pacemaker interrogation and failure of her atrial lead to capture was noted however impedance and sensing had been fine and she rarely needs to pacing the atrium. Her ventricular lead was functioning normally. Patient presented to the emergency department in transfer from [facility] for evaluation of hemoptysis and pneumonia. Patient reports since Thursday she has been coughing up blood. Initially, it was light tinged but is reported to have progressed to bright red. She has undergone FOB this morning and suspected hemorrhagic pneumonia was noted. Cardiology was consulted for need for continuance of Plavix and elevated troponin. Patient reports that she she has been having chest pain for approximately 3 days. When asked to locate her chest pain she rubs across the middle and upper abdomen. She is tender to touch throughout her abdomen. She tells me this has been occurring approximately 3 days. She has had diarrhea for several days including 3 diarrhea episodes this morning. Her troponin is noted to be 0.160. Upon review of prior troponins, it is noted she has chronically elevated troponins and in fact the troponin result of 0.160 is lower than her prior troponins as far back as 2014. EKG is stable. I spoke with Dr. Johnson. He agrees that holding her Plavix is safe. Instead, we will introduce aspirin 81 mg orally daily. Verify she is on a proton pump inhibitor. Because of her frequency of stools, will order a stool for ova and parasites, Clostridium difficile. I will add an amylase and lipase to her lab draw. Fasting lipid profile in the morning. I will start a low-dose lipid- lowering agent today. ASSESSMENT/PLAN: 1. HEMORRHAGIC COMMUNITY AQUIRED PNEUMONIA - okay to stop Plavix as her stent is greater than one year old. Will add low-dose aspirin orally daily. 2. KNOWN CAD - stable CAD. Tolerating beta blockade without problems. 3. HYPERTENSION - adequately controlled. Will adjust medications accordingly during hospital stay 4. DYSLIPIDEMIA - fasting lipid profile in the morning. Add atorvastatin 20 mg orally each evening 5. DIABETES - sliding scale while hospitalized 6. ESRD - dialysis Thursday, Thursday and Thursday 7. S/P PPM IMPLANTATION -stable 8. ELEVATED TROPONIN - chronically elevated troponin. This is not CA. Chest pain is abdominal pain. 9. ABDOMINAL PAIN -we will add additional labs including amylase and lipase. KUB. Stool for ova, parasites, C-diff. 10. BILATERAL CAROTID BRUIT - carotid US CC: Angelica Flores MD - Home Medications and Allergies Home Medications: Home Medications Medication Instructions Recorded Confirmed Type Carvedilol 6.25 mg PO BID 10/24/15 03/11/17 History Cinacalcet HCl [Sensipar] 180 mg PO DAILY W/SUPPER 10/24/15 03/11/17 History Docusate Sodium 100 mg PO BID 10/24/15 03/11/17 History Insulin NPH/Regular 70/30 [HumuLIN 20 unit SUBCUT DAILY W/SUPPER 10/24/15 History 70/30] Insulin NPH/Regular 70/30 [HumuLIN 40 unit SUBCUT DAILY W/BREAKFAST 10/24/1501/23 History 70/30] Isosorbide Mononitrate [Imdur] 30 mg PO DAILY 10/24/15 03/11/17 History NIFEdipine [Nifedipine ER] 60 mg PO DAILY 10/24/15 03/11/17 History Pantoprazole Tab [Protonix Tab] 40 mg PO DAILY 10/24/15 03/11/17 History Aspirin [Ecotrin] 325 mg PO DAILY 06/30/16 03/11/17 History Gabapentin Cap/Tab [Neurontin 100 mg PO BEDTIME PRN 06/30/16 03/11/17 History Cap/Tab] Lidocaine/Prilocaine 1 applic TOP WITH DIALYSIS 06/30/16 03/11/17 History [Lidocaine/Prilocaine 2.5%-2.5% Cream Kit] Loperamide Cap [Imodium Cap] 2 mg PO Q4HR PRN 06/30/16 03/11/17 History Phenytoin ER Cap [Dilantin Cap] 200 mg PO BID 06/30/16 03/11/17 History B-Complex with Vitamin C [Vitamin 1 each PO DAILY 03/11/17 03/11/17 History B-Complex with Vit C] Bisacodyl Tab [Dulcolax Tab] 10 mg PO DAILY PRN 03/11/17 03/11/17 History Cyclobenzaprine [Flexeril] 10 mg PO DAILY PRN 03/11/17 03/11/17 History Docusate Sodium Cap [Colace Cap] 100 mg PO BID 03/11/17 03/11/17 History Meclizine [Antivert] 12.5 mg PO DAILY PRN 03/11/17 03/11/17 History Allergies/Adverse Reactions: Allergies Allergy/AdvReac Type Severity Reaction Status Date / Time lisinopril Allergy Severe SHORTNESS Verified 03/11/17 07:39 OF BREATH Review of systems: REVIEW OF SYSTEMS: - Constitutional Constitutional: Present: Fatigue. Absent: syncope, anorexia, night sweats - EENT Eyes: Absent: blurry vision, loss of vision, diplopia Ears: Absent: decreased hearing, ear pain, ear discharge - Cardiovascular Cardiovascular: Denies chest pain with exertion. Acknowledges chronic dyspnea on exertion. Denies edema, palpitations. Absent: chest pain with deep breath, claudication - Respiratory Respiratory: Present: SERVIN, cough, hemoptysis. Absent: wheezing, - Gastrointestinal Gastrointestinal: Present: Diarrhea, abdominal pain. Denies: hematemesis, hematochezia, melena - Genitourinary Genitourinary: Absent: difficulty urinating, dysuria, urinary hesitancy, flank pain - Musculoskeletal Musculoskeletal: Present: back pain Absent: joint swelling, muscle cramps, muscle weakness - Neurological Neurological: Present: normal gait without frequent falls. Absent: dizziness, hemiparesis - Psychiatric Psychiatric: Absent: anxiety, depression, difficulty concentrating - Endocrine Endocrine: Present: fatigue. Absent: cold intolerance, heat intolerance, polyuria, polyphagia, polydipsia - Hematologic/Lymphatic Hematologic/Lymphatic: Present: easy bruising. Absent: easy bleeding -Integumentary Integumentary: Absent: lesions, rashes, skin breakdown Medical,Surgical,& Family Hx - Medical History Cardio: History of: CAD, Hypertension, Pacemaker (STENT) No history of: Cardiac Dysrhythmia Neurology: History of: Migraine, Seizures, TIA HEENT: History of: Eye Problem (CATARACTS), Dental Problems (TOP DENTURE) Endocrine: History of: Diabetes Mellitus (IDDM) Rheumatology: History of;: Rheumatoid Arthritis Respiratory: History of: Respiratory Problems (SPOT ON LUNGS) Renal: History of: Dialysis (MWF), Renal Failure Gastrointestinal: History of: GERD, GI Problems (IBS , constipation) Other: History of: MRSA - Surgical History Cardiac Surgeries: Sugical HX of: Cardiac Catheterization (with stent placement) HEENT Surgeries: Surgical HX of: Eye Surgery (CATARACTS) Abdominal Surgeries: Surgical HX of: Abdominal Surgery (EXP LAP), Cholecystectomy, Colonoscopy Reproductive Surgeries: Surgical HX of;: Hysterectomy - Family History Family History: Reports;: Family Cancer (father), Family Diabetes (mother, grandmother,sister), Family Heart Disease (father,mother), Family Hypertension Denies;: Family Psychiatric Problems - Social History Smoking Status: Never smoker Have you smoked in the last 12 months: No Frequency of Alcohol Use: None Type of Drug Use: None Physical Examination Vital Signs Temp Pulse Resp BP Pulse Ox 96.6 F L 71 16 141/42 95 03/11/17 07:31 03/11/17 07:31 03/11/17 07:31 03/11/17 07:31 03/11/17 07:31 General: [Appears well with no apparent distress.] [Pleasant and cooperative. ] [Appears comfortable.] HEENT: [PERRL, normocephalic, atraumatic. Mucous membranes moist. No jaundice noted. Conjunctiva moist and clear, sclerae anicteric] Neck: No JVD/HJR, no thyromegaly or lymphadenopathy noted. Bilateral carotid bruit. Cardiac: [Regular rate and rhythm.] [No obvious murmur rub or gallop.] Lungs: [Inspiratory crackles noted posteriorly in the bases. ] Oxygen in use via nasal cannula Abdomen: Soft, bowel sounds normoactive. Tender to palpation throughout. No abdominal bruit or thrill noted. No masses noted. Musculoskeletal: No fluid collection. Decreased range of motion is noted. Extremities: No clubbing, cyanosis noted. [ No edema noted.] Upper extremity pulses 2+. Lower extremity pulses 2+. Capillary refill less than 3 seconds. Skin: No unusual lesions or rashes. No skin breakdown appreciated. Neuro: Awake, alert and oriented 3. Moves all extremities well without hemiparesis or paralysis. No essential tremor is appreciated. Result/EKG - Labs CBC & BMP: 03/11/17 08:23 03/11/17 08:23 Lab Results: I have reviewed the past 24 hour labs Labs: Laboratory Results - last 24 hr 03/11/17 03/11/17 03/11/17 15:21 18:02 19:52 INR 1.2 PT Patient/Control Mix 12.9 POC Glucose 179 H 219 H 03/12/17 07:46 INR PT Patient/Control Mix POC Glucose 139 H - Diagnostic Findings Procedure: Chest x-ray: report reviewed by me, CT - chest: report reviewed by me - EKG EKG results: interpreted by me EKG shows: sinus rhythm
[2017-03-12 14:02] LABS: Free T4 (Free Thyroxine) 1.06 NG/DL (0.76-1.46); Thyroid Stimulating Hormone 0.565 uIU/ml (0.358-3.74)
--- NOTE | 2017-03-12 14:41 | Dialysis Note ---
Dialysis Note - Dialysis Note S: Pt seen on dialysis. O: VSS A: ESRD on CHD. Tolerating well s complications at this time. P: Continue routine CHD TIW as prescribed.
--- NOTE | 2017-03-12 16:55 | XRay Report ---
Referring Physician: Sweetie Drew Exam: XR KUB Date: March 12, 2017 at 4:35 PM Reason: Generalized abdominal pain Comparison: KUB June 29, 2016 Findings: There are surgical clips within the right upper abdomen, suggesting cholecystectomy. There is no evidence of bowel obstruction or free air. The renal shadows are largely obscured. Prominent scattered arterial calcification is present, and there are cardiac pacing leads. No acute osseous process is seen. Impression: No acute abdominal process is identified. PROCEDURE INTERPRETED AT [facility] DEPARTMENT OF RADIOLOGY Final Report Signed by: Dr. Dinah Villatoro
--- NOTE | 2017-03-12 16:58 | Ultrasound Report ---
Referring physician: Angelica Flores Exam: Carotid ultrasound Date: March 12, 2017 Comparison: Carotid ultrasound May 28, 2010 Reason: Bilateral carotid bruits Technique: Duplex scan of the carotid arteries was performed using B-Mode/grayscale imaging and Doppler spectral analysis and color flow. Ultrasound images were captured and stored. Findings: There is scattered calcified plaque at the carotid arteries, mainly at the bifurcations. The right ICA measures 0.69 cm in diameter, and the left ICA measures 0.53 cm in diameter. The peak systolic velocities are as follows: Right CCA: 43 cm/s Right proximal ICA: 65 cm/s Right distal ICA: 60 cm/s Right ECA: 133 cm/s Left CCA: 50 cm/s Left proximal ICA: 71 cm/s Left distal ICA: 63 cm/s Left ECA: 190 cm/s The peak systolic ICA/CCA velocity ratios are as follows: 1.5 on the right and 1.5 on the left. Antegrade flow is present within both vertebral arteries. Impression: 1. Less than 50% stenosis of both cervical internal carotid arteries. 2. The Society of Radiologists in Ultrasound consensus conference criteria was used. PROCEDURE INTERPRETED AT [facility] DEPARTMENT OF RADIOLOGY Final Report Signed by: Dr. Dinah Villatoro
[2017-03-12] MEDS: CINACALCET 30 MG TABLET PO SCH (17:41)
[2017-03-12] MEDS: ATORVASTATIN 20 MG TABLET PO SCH (20:25)
[2017-03-12] MEDS: ACETAMINOPHEN 325 MG TABLET PO PRN (20:37)
[2017-03-13] MEDS: CEFEPIME 500 MG in SODIUM CHLORIDE 0.9% 100 ML IV SCH ×2 (06:46→19:12)
[2017-03-13] MEDS: INSULIN NPH/REGULAR 70/30 100 UNIT/ML SUBCUT SCH ×2 (08:15→17:39)
--- NOTE | 2017-03-13 08:37 | Nephrology Progress Note ---
Nephrology - PN: Subj Interval history: Patient is resting comfortably no acute changes. Tolerated dialysis did yesterday. The plan for dialysis today to keep her on a Thursday schedule. Hopefully home soon. Exam (PN)-Nephrology - Vital Signs Vital signs: Period Temp Pulse Resp BP Sys/Wang Pulse Ox Last 24 Hr 96.7 F-97.7 F 61-80 13-20 104-193/55-100 90-100 - General Appearance General appearance: well-developed, well-nourished EENT: ATNC Neck: supple Respiratory: clear Cardiology: regular rate, regular rhythm Gastrointestinal: normoactive bowel sounds, no tenderness Integumentary: no rash Psychiatric: mood/affect appropriate - Lab 03/11/17 08:23 03/11/17 08:23 Most recent lab results Calcium 9.2 MG/DL (8.5-10.1) 03/11/17 08:23 Assessment and Plan (1) End stage renal disease on dialysis Status: Chronic Assessment and plan: Continue with scheduled hemodialysis. Current Visit: Yes (2) Hemoptysis Status: Acute Assessment and plan: This is being further evaluated by pulmonary. Current Visit: Yes (3) Diabetes mellitus Status: Chronic Current Visit: Yes Qualifiers: Diabetes mellitus type: type 2 Chronic kidney disease stage: on chronic dialysis (4) Status post coronary artery stent placement Status: Chronic Current Visit: Yes
--- NOTE | 2017-03-13 08:42 | Pulmonology Progress Note ---
Pulmonary - PN: Subj Interval history: This 61-year-old lady has had recurrent episodes of hemoptysis. Her CT scan shows bilateral lower lobe infiltrates worse in the left base consistent with pneumonia. Plans are for bronchoscopy this morning to evaluate source of bleeding. She did not have any emboli on the CT PE protocol. 03/13/2017 she has had no further hemoptysis. She needs about 5 more days of antibiotics for her pneumonia. No culture data at this point in time. Okay with me to treat at home once we know what we are treating or empirically if the cultures are negative. The hemoptysis was most likely due to hemorrhagic pneumonia. Exam (Progress Note) - Constitutional Vitals: Period Temp Pulse Resp BP Sys/Wang Pulse Ox Last 24 Hr 96.7 F-97.7 F 61-80 13-20 104-193/55-100 90-100 Exam: Patient is alert oriented afebrile. Vital signs normal. Pupils react to light. Throat clear. Neck supple bruits. Chest reveals some crackles at the bases worse at the left side. Heart normal rate and rhythm no murmurs. Abdomen soft nontender no masses. Bowel sounds present. She is obese and I am unable to palpate abdominal organs. Extremities no clubbing or cyanosis. Trace of edema. Calves nontender. Little change from yesterday. Results - Labs CBC & BMP: 03/11/17 08:23 03/11/17 08:23 Lab Results: I have reviewed the past 24 hour labs Assessment and Plan (1) Hemoptysis Status: Acute Assessment and plan: She has had recurrent episodes of hemoptysis over the last year. Had a negative bronchoscopy a year ago. She needs another bronchoscopy. She needs a CT scan of the chest. Will get it with PE protocol to be sure she is not having emboli. Also need to be sure whether that is a pneumonia in the left lower lobe. We will plan bronchoscopy in the morning. 03/12/2017 likely due to hemorrhagic pneumonia. Bronchoscopy planned today. She has had recurrent episodes. 03/13/2017 cytology pending on bronchial washings and brushings, however I suspect that the hemoptysis was due to hemorrhagic bronchitis. She has had no further hemoptysis. Current Visit: Yes (2) Diabetes mellitus Status: Chronic Assessment and plan: Sliding scale insulin defer to primary service. 03/12/2017 continuing sliding scale insulin. Glucoses look okay. 03/13/2017 glucoses show fairly good control. Current Visit: Yes Qualifiers: Diabetes mellitus type: type 2 Chronic kidney disease stage: on chronic dialysis (3) Status post coronary artery stent placement Status: Chronic Assessment and plan: She had a stent placed about 2 weeks ago she says. Apparently only on baby aspirin but she told me she was taking Plavix. This may have something to do with hemoptysis. Dr. Johnson did the stent. 03/12/2017 no angina. 03/13/2017 we need to know if she requires Plavix. It was not listed on her medicines on admission but I suspect that she was on that or something like it. This of course may have had something to do with her hemoptysis. Current Visit: Yes (4) Left lower lobe pneumonia Status: Acute Assessment and plan: Likely community-acquired pneumonia in an immunocompromised host. Will add cefepime to the Levaquin. 03/12/2017 actually has bibasilar pneumonia but it is worse at the left base. Will brush this area at bronchoscopy today. 03/13/2017 needs about 5 more days of antibiotics either IV or p.o. She is definitely improved. Current Visit: Yes (5) End stage renal disease on dialysis Status: Chronic Assessment and plan: Gets dialysis on Thursday and is due for dialysis today. Defer to nephrology. 03/13/2017 she had dialysis yesterday and is going to get it again today because she missed it on Thursday. Current Visit: Yes
--- NOTE | 2017-03-13 10:17 | Pathology Report from [facility] ---
ACCESSION # : [id number] PATIENT NAME : Maria M Ardon ORDERING DR : LLOYD KURTZ MD CLINICAL HX: Hemoptysis, Bilateral Infiltrates POST-OP DX: Same SPECIMEN INFO: Brushings,Bronhcial,RLL - 2 brushes (Received in [facility]). CLASS: II CLASS COMMENTS: Reactive/atypical pulmonary cells, inflammationCELL BLOCK: Same CLASS LEGEND: CLASS 0 Material inadequate for diagnosis because of (see comment) CLASS I Absence of atypical or abnormal cells CLASS II Atypical Cytology but no evidence of malignancy CLASS III Cytology suggestive of but not conclusive for malignancy CLASS IV Cytology strongly suggestive of malignancy CLASS V Cytology conclusive for malignancy SERVICE DATE: 03/12/2017 REPORT DATE: 03/13/2017 PATHOLOGIST: Manav Coronel
--- NOTE | 2017-03-13 10:17 | Pathology Report from [facility] ---
ACCESSION # : [id number] PATIENT NAME : Maria M Ardon ORDERING DR : LLOYD KURTZ MD CLINICAL HX: Hemoptysis, Bilateral Infiltrates POST-OP DX: Same SPECIMEN INFO: Washing,Bronchial,JOSE - 10 ml's pepe, cloudy CLASS: II CLASS COMMENTS: Reactive pulmonary cells, inflammationCELL BLOCK: Same CLASS LEGEND: CLASS 0 Material inadequate for diagnosis because of (see comment) CLASS I Absence of atypical or abnormal cells CLASS II Atypical Cytology but no evidence of malignancy CLASS III Cytology suggestive of but not conclusive for malignancy CLASS IV Cytology strongly suggestive of malignancy CLASS V Cytology conclusive for malignancy SERVICE DATE: 03/12/2017 REPORT DATE: 03/13/2017 PATHOLOGIST: Manav Coronel
--- NOTE | 2017-03-13 10:18 | Pathology Report from [facility] ---
ACCESSION # : [id number] PATIENT NAME : Maria M Ardon ORDERING DR : LLOYD KURTZ MD CLINICAL HX: Hemoptysis, Bilateral Infiltrates POST-OP DX: Same SPECIMEN INFO: Brushings,Bronchial,LLL - 2 brushes (Received in [facility]). CLASS: II CLASS COMMENTS: Reactive pulmonary cellsCELL BLOCK: Same CLASS LEGEND: CLASS 0 Material inadequate for diagnosis because of (see comment) CLASS I Absence of atypical or abnormal cells CLASS II Atypical Cytology but no evidence of malignancy CLASS III Cytology suggestive of but not conclusive for malignancy CLASS IV Cytology strongly suggestive of malignancy CLASS V Cytology conclusive for malignancy SERVICE DATE: 03/12/2017 REPORT DATE: 03/13/2017 PATHOLOGIST: Manav Coronel
[2017-03-13] MEDS: ASPIRIN EC 81 MG TABLET PO SCH (10:22)
[2017-03-13] MEDS: PHENYTOIN ER 100 MG CAPSULE PO SCH ×2 (10:22→20:54)
[2017-03-13] MEDS: ISOSORBIDE MONONITRATE 30 MG TABLET PO SCH (10:22)
[2017-03-13] MEDS: CARVEDILOL 6.25 MG TABLET PO SCH ×2 (10:22→20:54)
[2017-03-13] MEDS: DOCUSATE SODIUM 100 MG CAPSULE PO SCH ×2 (10:22→20:54)
[2017-03-13] MEDS: PANTOPRAZOLE 40 MG TABLET PO SCH (10:23)
[2017-03-13] MEDS: MULTIVITAMIN (BEROCCA) TABLET PO SCH (10:25)
--- NOTE | 2017-03-13 10:26 | Cardiology Progress Note ---
Assessment and Plan - Time spent with patient Time spent with patient: Greater than 30 minutes (1) Hemorrhagic pneumonia Status: Acute Assessment and plan: Plan of care listed below Current Visit: Yes (2) Hypertension Status: Chronic Assessment and plan: Plan of care listed below Current Visit: Yes (3) Dyslipidemia Status: Chronic Assessment and plan: Plan of care listed below Current Visit: Yes (4) Abdominal pain Status: Resolved Assessment and plan: Plan of care listed below Current Visit: Yes (5) Elevated troponin Status: Chronic Assessment and plan: Plan of care listed below Current Visit: Yes (6) Chest pain Status: Resolved Assessment and plan: Plan of care listed below Current Visit: Yes (7) Hemoptysis Status: Acute Assessment and plan: Plan of care listed below Current Visit: Yes (8) Diabetes mellitus Status: Chronic Current Visit: Yes Qualifiers: Diabetes mellitus type: type 2 Chronic kidney disease stage: on chronic dialysis (9) End stage renal disease on dialysis Status: Chronic Assessment and plan: Plan of care listed below Current Visit: Yes (10) Status post coronary artery stent placement Status: Chronic Assessment and plan: Plan of care listed below Current Visit: Yes (11) Carotid bruit Status: Acute Assessment and plan: Plan of care listed below Current Visit: Yes Qualifiers: Laterality: bilateral Qualified Code(s): R09.89 - Other specified symptoms and signs involving the circulatory and respiratory systems Cardiology - PN: Subj Interval history: CAMP GUARD: DR. DE JESUS PCP: [facility] Emeli Reva, 61ChF, routinely followed by Dr. De Jesus. Risk factors include: known coronary artery disease, hypertension, dyslipidemia, diabetes, sedentary lifestyle, and obesity. She has a history of end-stage renal disease on hemodialysis (M-W-), status post permanent pacemaker implantation for symptomatic bradycardia. She was last seen in cardiology clinic March 05, 2017. Last cardiac catheterization January 24, 2016 reveals the following: widely patent stents in the left anterior descending and right coronary arteries. There was high-grade stenosis in the first diagonal branch which was being medically managed due to highly tortuous vessel. She recently underwent pacemaker interrogation and failure of her atrial lead to capture was noted however impedance and sensing had been fine and she rarely needs to pacing the atrium. Her ventricular lead was functioning normally. SUMMARY: Admitted March 11, 2017 for hemoptysis and shortness of breath. She has undergone bronchoscopy and found to have hemorrhagic pneumonia. Cardiology was consulted for evaluation of need to continue Plavix and elevated troponin. It is noted that troponin is chronically elevated in fact lower than prior admissions. This is not IN. Plavix has been held as her stents are greater than 1-year-old. She has been started on low-dose aspirin. MARCH 13, 2017: Overnight, patient seems to be improving. She states her breathing is somewhat better. She is coughing and producing a thick yellow sputum, no longer hemoptysis or blood-tinged. I will add incentive spirometry today. She is having diarrhea. Her abdominal pain is better. KUB revealed no acute process. Carotid ultrasounds revealed no significant stenosis bilaterally. Blood pressure is well controlled on beta nabor. She has an LUCILLE inhibitor allergy. At this point, we will sign off as she has no active cardiac conditions during this admission. Please feel free to reconsult as needed. ASSESSMENT/PLAN: 1. HEMORRHAGIC COMMUNITY AQUIRED PNEUMONIA -Plavix has been stopped and she is taking low-dose aspirin daily. 2. KNOWN CAD - stable CAD. Tolerating beta blockade without problems. LUCILLE inhibitor allergy. 3. HYPERTENSION - adequately controlled. Will adjust medications accordingly during hospital stay as needed. Currently well controlled 4. DYSLIPIDEMIA - fasting lipid profile in the morning. Added Atorvastatin 20 mg orally each evening 5. DIABETES - sliding scale while hospitalized 6. ESRD - dialysis Thursday, Thursday and Thursday 7. S/P PPM IMPLANTATION - stable 8. ELEVATED TROPONIN - chronically elevated troponin. This is not IN. 9. ABDOMINAL PAIN -improved overnight. Labs stable. KUB reveals no acute process. 10. BILATERAL CAROTID BRUIT - carotid US reveals no significant stenosis. Exam (Progress Note) - Constitutional Vitals: Period Temp Pulse Resp BP Sys/Wang Pulse Ox Last 24 Hr 96.7 F-97.7 F 61-80 16-20 104-138/55-76 90-100 Exam: General: [Appears well with no apparent distress.] [Pleasant and cooperative. ] [Appears comfortable.] HEENT: [PERRL, normocephalic, atraumatic. Mucous membranes moist. No jaundice noted. Conjunctiva moist and clear, sclerae anicteric] Neck: No JVD/HJR, no thyromegaly or lymphadenopathy noted. No carotid bruit appreciated Cardiac: [Regular rate and rhythm.] [No murmur rub or gallop.] Lungs: [Inspiratory crackles noted posteriorly midway through both lung jacobo. ] Oxygen in use via nasal cannula Abdomen: Soft, bowel sounds normoactive. Nontender and nondistended. No abdominal bruit or thrill noted. No masses noted. Musculoskeletal: No fluid collection. Decreased range of motion is noted. Extremities: No clubbing, cyanosis noted. [ No edema noted.] Upper extremity pulses 2+. Lower extremity pulses 2+. Capillary refill less than 3 seconds. Skin: No unusual lesions or rashes. No skin breakdown appreciated. Neuro: Awake, alert and oriented 3. Moves all extremities well without hemiparesis or paralysis. No essential tremor is appreciated. Result/EKG - Labs CBC & BMP: 03/11/17 08:23 03/11/17 08:23 Lab Results: I have reviewed the past 24 hour labs Labs: Laboratory Results - last 24 hr 03/12/17 03/12/17 03/12/17 11:26 13:08 13:08 POC Glucose 118 H Amylase 19 L Lipase 77.0 Free T4 1.06 TSH 3rd Generation 0.565 03/12/17 03/12/17 03/13/17 15:34 19:49 08:06 POC Glucose 106 255 H 162 H Amylase Lipase Free T4 TSH 3rd Generation - EKG EKG results: interpreted by me EKG shows: sinus rhythm (Pacing)
[2017-03-13 10:46] LABS: Basophils % 0.3 % (0.0-0.8); Eosinophils # 0.1 10*3/uL (0.0-0.87); Eosinophils % 0.9 % (0.00-10.9); Hematocrit 30.8 VOL% (35.7-47.0); Hemoglobin 10.4 GM/DL (12.0-16.0); Immature Granulocytes % 0.4 %; Immature Granulocytes Absolute 0.04 #; Lymphocytes # 0.7 10*3/uL (1.4-4.0); Lymphocytes % 6.7 % (21.3-54.2); Mean Corpuscular HGB Conc 33.8 GM/DL (32-36); Mean Corpuscular Hemoglobin 34 PG (27-34); Mean Platelet Volume 11.6 FL (9.6-12.0); Monocytes # 0.5 10*3/uL (0.11-0.8); Monocytes % 4.6 % (1.7-12.7); Neutrophils # 8.7 10*3/uL (1.4-7.4); Neutrophils % 87.1 % (38.7-73.9); Platelet Count 115 T/CUMM (130-400); Red Blood Count 3.08 MC/CUMM (3.8-5.5); Red Cell Distribution Width 14.2 % (9.3-17.3)
[2017-03-13 11:16] LABS: Magnesium 2.3 MG/DL (1.8-2.4); Osmolality,Calculated 280.2 MOS/KG (273-304); Potassium 3.8 MMOL/L (3.5-5.1)
--- NOTE | 2017-03-13 13:02 | Dialysis Note ---
Dialysis Note - Dialysis Note Patient seen on dialysis she is tolerating the procedure blood pressure 104/60.
--- NOTE | 2017-03-13 14:54 | Hospitalist Progress Note ---
Assessment and Plan (1) Left lower lobe pneumonia Status: Acute Assessment and plan: hemmorhagic pneumonia, better but it will take time. continue antibiotics and nebs and supplemental O2. Cards saw her re:plavix- it was unclear when she had stents last. They were over a year ago so will continue with low dose asa. Continue HD HTN controlled Up to move in room. may need swing bed. consult PT and OT. take question of DC day by day. DM controlled. Current Visit: Yes (2) End-stage renal disease needing dialysis Status: Acute Current Visit: No (3) Hemoptysis Status: Acute Current Visit: Yes (4) Diabetes mellitus Status: Chronic Current Visit: Yes Qualifiers: Diabetes mellitus type: type 2 Chronic kidney disease stage: on chronic dialysis Hospitalist: Subjective Interval history: Mrs Ardon is coughing a little less but still has dyspnea on exertion and doesn' t feel very energetic. Exam - Constitutional Vitals: Period Temp Pulse Resp BP Sys/Wang Pulse Ox Last 24 Hr 96.7 F-97.6 F 61-80 16-20 104-153/55-76 90-99 General appearance: no acute distress, over weight - Head Head exam: Present: normocephalic, atraumatic - Eye Eye exam: Present: EOMI. Absent: scleral icterus - Respiratory Respiratory exam: Present: clear to auscultation bilaterally (with some rales at left base, no rhonchi or rales) - Cardiovascular Cardiovascular exam: Present: regular rate and rhythm - GI/Abdominal GI/Abdominal exam: Present: normal bowel sounds, soft. Absent: tenderness - Extremities Exam Extremities exam: Absent: edema - Neurological Exam Neurological exam: Present: alert, oriented X3 - Skin Skin exam: Present: warm, dry Results - Labs CBC & BMP: 03/13/17 10:32 03/13/17 10:32 Lab Results: I have reviewed the past 24 hour labs
[2017-03-13] MEDS ORDERED: GLUCAGON 1 MG VIAL IM PRN (17:23)
[2017-03-13] MEDS: INSULIN REGULAR 100 UNIT/ML SUBCUT SCH (17:40)
[2017-03-13] MEDS: CINACALCET 30 MG TABLET PO SCH (17:40)
[2017-03-13 18:59] LABS: Troponin I Only 0.047 NG/ML (0.00-0.045)
[2017-03-13] MEDS: ATORVASTATIN 20 MG TABLET PO SCH (20:55)
[2017-03-13] MEDS: DEXTROSE 50% 25 GM/50 ML VIAL IV PRN (22:07)
[2017-03-14] MEDS: DEXTROSE 50% 25 GM/50 ML VIAL IV PRN (01:58)
[2017-03-14] MEDS: CEFEPIME 500 MG in SODIUM CHLORIDE 0.9% 100 ML IV SCH ×2 (06:13→17:36)
[2017-03-14 06:14] LABS: Basophils % 0.2 % (0.0-0.8); Eosinophils % 0.4 % (0.00-10.9); Hematocrit 32.1 VOL% (35.7-47.0); Hemoglobin 10.6 GM/DL (12.0-16.0); Immature Granulocytes % 0.5 %; Immature Granulocytes Absolute 0.05 #; Lymphocytes # 0.6 10*3/uL (1.4-4.0); Mean Corpuscular Hemoglobin 33 PG (27-34); Mean Corpuscular Volume 99.7 FL (87-102); Mean Platelet Volume 11.6 FL (9.6-12.0); Monocytes # 0.6 10*3/uL (0.11-0.8); Monocytes % 6.1 % (1.7-12.7); Neutrophils # 7.9 10*3/uL (1.4-7.4); Neutrophils % 86.8 % (38.7-73.9); Platelet Count 113 T/CUMM (130-400); Red Blood Count 3.22 MC/CUMM (3.8-5.5); Red Cell Distribution Width 14.2 % (9.3-17.3); White Blood Count 9.1 T/CUMM (4-12)
[2017-03-14 06:53] LABS: Calcium 7.9 MG/DL (8.5-10.1); Magnesium 2.5 MG/DL (1.8-2.4); Osmolality,Calculated 272.7 MOS/KG (273-304); Potassium 4.7 MMOL/L (3.5-5.1)
[2017-03-14 06:59] LABS: Risk Ratio 2.74; VLDL CHOLESTEROL 35.2 MG/DL
--- NOTE | 2017-03-14 08:19 | Pulmonology Progress Note ---
Pulmonary - PN: Subj Interval history: Patient is a 61-year-old lady that came in with shortness of breath and hemoptysis and bilateral infiltrates. She had a negative bronchoscope and is being treated for pneumonia. She is a dialysis patient. She went to dialysis yesterday and did well. Her cultures have been negative. She is not having any further hemoptysis. She still has a little bit of congestion but her breathing is better. Her chest x-ray has improved. She is tolerating her antibiotics. Exam (Progress Note) - Constitutional Vitals: Period Temp Pulse Resp BP Sys/Wang Pulse Ox Last 24 Hr 97.5 F-98.6 F 60-63 18-21 130-163/51-68 92-99 General appearance: no acute distress (She is comfortable sitting up in bed), over weight - Head Head exam: Present: normal inspection, normocephalic - Eye Eye exam: Present: EOMI. Absent: scleral icterus Pupils: Present: TAYLOR - ENT ENT exam: Present: normal exam - Neck Neck exam: Present: normal inspection. Absent: lymphadenopathy, thyromegaly - Respiratory Respiratory exam: Present: rales (She still has some slight crackles in her left base.). Absent: accessory muscle use, wheezes - Cardiovascular Cardiovascular exam: Present: regular rate and rhythm. Absent: gallop, systolic murmur - GI/Abdominal GI/Abdominal exam: Present: normal bowel sounds, soft. Absent: organomegaly, tenderness - Extremities Exam Extremities exam: Present: edema (She has slight swelling of her left leg.). Absent: calf tenderness - Neurological Exam Neurological exam: Present: alert, oriented X3, CN II-XII intact - Psychiatric Psychiatric exam: Present: normal affect - Skin Skin exam: Present: warm, dry Results - Labs CBC & BMP: 03/14/17 05:16 03/14/17 05:16 - Diagnostic Findings Procedure: Chest x-ray: image reviewed by me, report reviewed by me (Chest x- ray shows cardiomegaly and very minimal left lung infiltrate.) Assessment and Plan (1) Hypertension associated with stage 5 chronic kidney disease due to type 2 diabetes mellitus Status: Acute Assessment and plan: Her blood pressure and heart rate have been reasonably stable Current Visit: No (2) Left lower lobe pneumonia Status: Acute Assessment and plan: So far the cultures been negative but she is stable. She will continue with IV antibiotics. Current Visit: Yes (3) End stage renal disease on dialysis Status: Chronic Assessment and plan: She did well with dialysis yesterday. Current Visit: Yes (4) Hemoptysis Status: Acute Assessment and plan: The hemoptysis has resolved and her x-ray is better. Current Visit: Yes (5) Diabetes mellitus Status: Chronic Assessment and plan: Her glucose is around 200. Current Visit: Yes Qualifiers: Diabetes mellitus type: type 2 Chronic kidney disease stage: on chronic dialysis (6) Status post coronary artery stent placement Status: Chronic Assessment and plan: She is not having any angina now. Current Visit: Yes
--- NOTE | 2017-03-14 08:27 | Hospitalist Progress Note ---
Assessment and Plan (1) Hemorrhagic pneumonia Status: Acute Assessment and plan: Impression: 1. Pneumonia this appears to be improving 2. End-stage renal disease Plan: Continue antibiotics and mobilization. We will tentatively plan for discharge in the morning if she continues to improve. This note was completed using [employer] voice recognition software. There may be insurance and benefits clerk errors as a result. Current Visit: Yes Hospitalist: Subjective Interval history: Follow-up pneumonia and end-stage renal disease. The patient was transferred out of the ICU. She is feeling better today. She continues with a cough. There has been no further hemoptysis. She had dialysis yesterday. Pathology from the bronchoscopy did not show any evidence of malignancy. Bronchial washings and cultures grew normal mana. Exam - Constitutional Vitals: Period Temp Pulse Resp BP Sys/Wang Pulse Ox Last 24 Hr 97.5 F-98.6 F 60-63 18-21 130-163/51-68 92-99 Vital signs are noted above. Heart is regular with distant tones and no murmur. She has bilateral rales. Abdomen is soft with no mass. She is awake and alert. Results - Labs CBC & BMP: 03/14/17 05:16 03/14/17 05:16 Lab Results: I have reviewed the past 24 hour labs - Diagnostic Findings Procedure: Chest x-ray: image reviewed by me (Chest x-ray looks better compared to the film from admission.)
[2017-03-14] MEDS: INSULIN REGULAR 100 UNIT/ML SUBCUT SCH ×2 (09:33→16:31)
[2017-03-14] MEDS: INSULIN NPH/REGULAR 70/30 100 UNIT/ML SUBCUT SCH ×2 (09:33→17:27)
[2017-03-14] MEDS: MULTIVITAMIN (BEROCCA) TABLET PO SCH (09:34)
[2017-03-14] MEDS: PANTOPRAZOLE 40 MG TABLET PO SCH (09:34)
[2017-03-14] MEDS: DOCUSATE SODIUM 100 MG CAPSULE PO SCH ×2 (09:34→20:24)
[2017-03-14] MEDS: CARVEDILOL 6.25 MG TABLET PO SCH ×2 (09:34→20:24)
[2017-03-14] MEDS: ISOSORBIDE MONONITRATE 30 MG TABLET PO SCH (09:34)
[2017-03-14] MEDS: PHENYTOIN ER 100 MG CAPSULE PO SCH ×2 (09:34→20:23)
[2017-03-14] MEDS: ASPIRIN EC 81 MG TABLET PO SCH (09:34)
--- NOTE | 2017-03-14 09:43 | XRay Report ---
Exam: Chest 2 views Date: March 14, 2017 at 7:34 AM Comparison: Chest one view portable March 11, 2017, CT chest PE study March 11, 2017 Reason: Pneumonia Findings: The cardiac silhouette is again enlarged, and a cardiac pacing device is in place. Calcified plaque is noted at the aortic arch. There are scattered opacities within both lower lung zones, mainly on the left. This is concerning for pneumonia. No pneumothorax or pleural effusion is identified. No acute osseous process is seen. Surgical clips are noted within the right upper abdomen. Impression: There is slight improved aeration of the left lower lung zone. However, there are persistent opacities within both lower lung zones, left greater than right. PROCEDURE INTERPRETED AT [facility] DEPARTMENT OF RADIOLOGY Final Report Signed by: Dr. Dinah Villatoro
--- NOTE | 2017-03-14 12:53 | Nephrology Progress Note ---
Nephrology - PN: Subj Interval history: Ms. Ardon is seen in follow-up of her end-stage renal disease. She dialyzed yesterday and has a clear chest. She complains of having a dry nose asked about some lubricant for that. If she needs to use any nasal oxygen she will use a water bottle to lessen its drying tendency. No changes are made and we will continue to support with dialysis. Exam (PN)-Nephrology - Vital Signs Vital signs: Period Temp Pulse Resp BP Sys/Wang Pulse Ox Last 24 Hr 97 F-98.6 F 60-82 18-21 130-163/51-68 92-99 - Lab 03/14/17 05:16 03/14/17 05:16 Most recent lab results Calcium 7.9 MG/DL (8.5-10.1) L 03/14/17 05:16 Magnesium 2.5 MG/DL (1.8-2.4) H 03/14/17 05:16
[2017-03-14] MEDS: ACETAMINOPHEN 325 MG TABLET PO PRN (15:30)
[2017-03-14] MEDS: CINACALCET 30 MG TABLET PO SCH (17:35)
[2017-03-14] MEDS: ATORVASTATIN 20 MG TABLET PO SCH (20:24)
[2017-03-15] MEDS: CEFEPIME 500 MG in SODIUM CHLORIDE 0.9% 100 ML IV SCH (05:45)
[2017-03-15 06:53] LABS: Basophils % 0.4 % (0.0-0.8); Eosinophils # 0.3 10*3/uL (0.0-0.87); Eosinophils % 3.5 % (0.00-10.9); Hematocrit 30.4 VOL% (35.7-47.0); Hemoglobin 10.1 GM/DL (12.0-16.0); Immature Granulocytes % 0.8 %; Immature Granulocytes Absolute 0.06 #; Lymphocytes # 1.1 10*3/uL (1.4-4.0); Lymphocytes % 13.9 % (21.3-54.2); Mean Corpuscular HGB Conc 33.2 GM/DL (32-36); Mean Corpuscular Hemoglobin 33 PG (27-34); Mean Corpuscular Volume 98.7 FL (87-102); Mean Platelet Volume 11.6 FL (9.6-12.0); Monocytes # 0.7 10*3/uL (0.11-0.8); Monocytes % 8.9 % (1.7-12.7); Neutrophils # 5.7 10*3/uL (1.4-7.4); Neutrophils % 72.5 % (38.7-73.9); Platelet Count 126 T/CUMM (130-400); Red Blood Count 3.08 MC/CUMM (3.8-5.5); Red Cell Distribution Width 14.3 % (9.3-17.3); White Blood Count 7.9 T/CUMM (4-12)
[2017-03-15 07:28] LABS: Calcium 6.9 MG/DL (8.5-10.1); Magnesium 2.4 MG/DL (1.8-2.4); Osmolality,Calculated 283.4 MOS/KG (273-304); Potassium 4.5 MMOL/L (3.5-5.1)
--- NOTE | 2017-03-15 07:56 | Pulmonology Progress Note ---
Pulmonary - PN: Subj Interval history: Patient is a 61-year-old lady that came in with shortness of breath and hemoptysis and bilateral infiltrates. She had a negative bronchoscope and is being treated for pneumonia. She is a dialysis patient. She went to dialysis Thursday and did well. Her cultures have been negative. She is not having any further hemoptysis. She says she feels better overall but still has a slight cough. She is walking around without any shortness of breath. She says she is eating fairly well. Overall she feels better. Exam (Progress Note) - Constitutional Vitals: Period Temp Pulse Resp BP Sys/Wang Pulse Ox Last 24 Hr 97 F-98.8 F 60-82 18-22 114-196/46-78 92-97 Exam: General appearance: no acute distress (She is comfortable sitting up in bed), over weight - Head Head exam: Present: normal inspection, normocephalic - Eye Eye exam: Present: EOMI. Absent: scleral icterus Pupils: Present: TAYLOR - ENT ENT exam: Present: normal exam - Neck Neck exam: Present: normal inspection. Absent: lymphadenopathy, thyromegaly - Respiratory Respiratory exam: Present: She has some mild inspiratory crackles in both bases. She does not have any wheezing. - Cardiovascular Cardiovascular exam: Present: regular rate and rhythm. Absent: gallop, systolic murmur - GI/Abdominal GI/Abdominal exam: Present: normal bowel sounds, soft. Absent: organomegaly, tenderness - Extremities Exam Extremities exam: Present: edema (She has slight swelling of her left leg.). Absent: calf tenderness - Neurological Exam Neurological exam: Present: alert, oriented X3, CN II-XII intact - Psychiatric Psychiatric exam: Present: normal affect - Skin Skin exam: Present: warm, dry Results - Labs CBC & BMP: 03/15/17 06:40 03/15/17 06:40 Assessment and Plan (1) Hypertension associated with stage 5 chronic kidney disease due to type 2 diabetes mellitus Status: Acute Assessment and plan: Her blood pressure and heart rate have been reasonably stable. Current Visit: No (2) Left lower lobe pneumonia Status: Acute Assessment and plan: She has a slight cough but her breathing is better. Her cultures have been negative so far. She is tolerating her IV medicines. Will check a chest x-ray tomorrow. Current Visit: Yes (3) End stage renal disease on dialysis Status: Chronic Assessment and plan: She is a dialysis patient and will dialyze tomorrow. Current Visit: Yes (4) Hemoptysis Status: Acute Assessment and plan: The hemoptysis has resolved and her x-ray is better. She has a dry cough now. Current Visit: Yes (5) Diabetes mellitus Status: Chronic Assessment and plan: Her glucose is around 195. Current Visit: Yes Qualifiers: Diabetes mellitus type: type 2 Chronic kidney disease stage: on chronic dialysis (6) Status post coronary artery stent placement Status: Chronic Assessment and plan: She is not having any angina now. Current Visit: Yes
--- NOTE | 2017-03-15 08:33 | Discharge Summary ---
Hospital Course - Hospital Course Hospital Course: Discharge diagnosis: 1. Pneumonia, likely community-acquired 2. End-stage renal disease 3. Type II DM 4. Hypertension The patient presented to the hospital for evaluation of some dyspnea and hemoptysis. She had a chest x-ray that showed a possible left basilar infiltrate. This was confirmed by a chest CT, that showed bilateral lower lobe infiltrates, worse on the left. She did not have a pulmonary embolism. She was initially treated in the ICU, and underwent bronchoscopy. All of the bronchoscopic cultures were negative for pathogens. She was transferred out to the floor. She continued on her routine dialysis schedule. She was able to get out of bed, and tolerated her regular diet. We will switch her to oral antibiotics and let her go home today. She can resume her routine dialysis schedule on Thursday. Medication reconciliation has been performed. Renal diet. Activity as tolerated. This note was completed using [employer] voice recognition software. There may be database security administrator errors as a result. Diagnosis - Discharge Diagnosis (1) Hemorrhagic pneumonia Status: Acute Discharge Plan - Discharge Data Disposition: Disch To Home/Self Care Condition at Discharge: Stable Discharge Diet: advance to your usual diet Activity: resume usual activities as tolerated Hygiene: no restrictions Weight Bearing at Discharge: full weight bearing Driving: no restrictions - Discharge Medications New Cefuroxime Tab [Ceftin] 500 mg PO BID #14 tablet Dextromethorphan ER Liquid [Delsym] 60 mg PO BID PRN #0 bottle PRN Reason: Cough Continue NIFEdipine [Nifedipine ER] 60 mg PO DAILY Isosorbide Mononitrate [Imdur] 30 mg PO DAILY Insulin NPH/Regular 70/30 [HumuLIN 70/30] 20 unit SUBCUT DAILY W/SUPPER Insulin NPH/Regular 70/30 [HumuLIN 70/30] 40 unit SUBCUT DAILY W/BREAKFAST Docusate Sodium 100 mg PO BID Carvedilol 6.25 mg PO BID Cinacalcet HCl [Sensipar] 180 mg PO DAILY W/SUPPER Pantoprazole Tab [Protonix Tab] 40 mg PO DAILY Phenytoin ER Cap [Dilantin Cap] 200 mg PO BID Aspirin [Ecotrin] 325 mg PO DAILY Gabapentin Cap/Tab [Neurontin Cap/Tab] 100 mg PO BEDTIME PRN PRN Reason: neuropathy Lidocaine/Prilocaine [Lidocaine/Prilocaine 2.5%-2.5% Cream Kit] 1 applic TOP WITH DIALYSIS Loperamide Cap [Imodium Cap] 2 mg PO Q4HR PRN PRN Reason: Diarrhea Bisacodyl Tab [Dulcolax Tab] 10 mg PO DAILY PRN PRN Reason: Constipation Meclizine [Antivert] 12.5 mg PO DAILY PRN PRN Reason: Dizziness Cyclobenzaprine [Flexeril] 10 mg PO DAILY PRN PRN Reason: Muscle Pain Docusate Sodium Cap [Colace Cap] 100 mg PO BID B-Complex with Vitamin C [Vitamin B-Complex with Vit C] 1 each PO DAILY - Follow Up or Referral - Forms/Instructions Exam - Constitutional Vitals: Period Temp Pulse Resp BP Sys/Wang Pulse Ox Last 24 Hr 97.7 F-98.8 F 60-74 18-22 114-196/46-78 92-97 Vital signs are noted above. Heart is regular with no murmur or gallop. She has bibasilar rales. No wheezes. Abdomen is soft and obese without mass. She is awake and alert. Discharge Results Procedures and tests throughout hospitalization: Pending Orders 03/11/17 08:57 Blood Culture Stat 03/12/17 09:00 AFB Culture/Smears Routine Fungal Culture w/ Prep Routine 03/12/17 09:18 Cytology Request Routine 03/12/17 12:12 UA [Urinalysis] Routine 03/16/17 04:00 XR chest 2V IN AM BMP w/ Mg [Basic Metabolic Panel w/Mg] IN AM CBC [Comp Blood Count Auto Diff] IN AM Labs on day of discharge: Labs from last 24 hours 03/15/17 03/15/17 03/14/17 06:40 06:40 21:56 WBC 7.9 RBC 3.08 L Hgb 10.1 L Hct 30.4 L MCV 98.7 MCH 33 MCHC 33.2 RDW 14.3 Plt Count 126 L MPV 11.6 Neut % (Auto) 72.5 Lymph % (Auto) 13.9 L Stewart % (Auto) 8.9 Eos % (Auto) 3.5 Baso % (Auto) 0.4 Neut # (Auto) 5.7 Lymph # (Auto) 1.1 L Stewart # (Auto) 0.7 Eos # (Auto) 0.3 Baso # (Auto) 0.0 Immature Gran % 0.8 Nucleated RBC % 0.0 Immature Gran # 0.06 Nucleated RBCs # 0.00 Sodium 133 L Potassium 4.5 Chloride 97 L Carbon Dioxide 23 Anion Gap 17.5 H BUN 48 H Creatinine 6.60 H GFR Calculation 7 BUN/Creatinine Ratio 7.00 Glucose 195 H POC Glucose 146 H Calculated Osmolality 283.4 Calcium 6.9 L Magnesium 2.4 03/14/17 03/14/17 15:53 11:54 WBC RBC Hgb Hct MCV MCH MCHC RDW Plt Count MPV Neut % (Auto) Lymph % (Auto) Stewart % (Auto) Eos % (Auto) Baso % (Auto) Neut # (Auto) Lymph # (Auto) Stewart # (Auto) Eos # (Auto) Baso # (Auto) Immature Gran % Nucleated RBC % Immature Gran # Nucleated RBCs # Sodium Potassium Chloride Carbon Dioxide Anion Gap BUN Creatinine GFR Calculation BUN/Creatinine Ratio Glucose POC Glucose 75 191 H Calculated Osmolality Calcium Magnesium Preliminary micro results at discharge 03/11/17 08:57 Blood Culture - Preliminary Blood No growth at 3 days 03/11/17 08:57 Blood Culture - Preliminary Blood No growth at 3 days DS: Provider Date of admission: 03/11/17 08:14 Primary care physician: Arianna Stauffer MD Attending physician on admission: Balaji Martel MD Consults: 03/11/17 10:21 Consult to Dietitian [CONS] Routine Reason for Dietitian: Other 03/11/17 16:18 Consult to Physician [CONS] Routine Comment: Consulting Provider: Alexx Espinoza Consult to Specialist Group: Pulmonology When should Consulting Provider be notified: Now Person Notified: Fela Date Notified: 03/11/17 Time Notified: 16:36 03/11/17 16:29 Consult to Physician [CONS] Routine Comment: Consulting Provider: Wilton Schumacher Jr. Consult to Specialist Group: Nephrology When should Consulting Provider be notified: Now Person Notified: justino Date Notified: 03/11/17 Time Notified: 16:36 03/12/17 11:19 Consult to Physician [CONS] Routine Comment: does sheneed plavix when bleeding stops? Consulting Provider: Cardiology - [facility] Consult to Specialist Group: Cardiology Person Notified: MARCIE Date Notified: 03/12/17 Time Notified: 11:30 03/13/17 15:02 Consult to Occupational Therapy [CONS] Routine Reason for Occupational Therapy: Evaluate and Treat Consult to Physical Therapy [CONS] Routine Reason for Physical Therapy: Evaluate and Treat Discharging clinician: Nima Arambula MD Expected date of discharge: 03/15/17
[2017-03-15] MEDS: MULTIVITAMIN (BEROCCA) TABLET PO SCH (08:52)
[2017-03-15] MEDS: PHENYTOIN ER 100 MG CAPSULE PO SCH (08:52)
[2017-03-15] MEDS: ISOSORBIDE MONONITRATE 30 MG TABLET PO SCH (08:52)
[2017-03-15] MEDS: PANTOPRAZOLE 40 MG TABLET PO SCH (08:53)
[2017-03-15] MEDS: INSULIN NPH/REGULAR 70/30 100 UNIT/ML SUBCUT SCH (08:53)
[2017-03-15] MEDS: CARVEDILOL 6.25 MG TABLET PO SCH (08:53)
[2017-03-15] MEDS: DOCUSATE SODIUM 100 MG CAPSULE PO SCH (08:53)
[2017-03-15] MEDS: INSULIN REGULAR 100 UNIT/ML SUBCUT SCH (08:53)
[2017-03-15] MEDS: ASPIRIN EC 81 MG TABLET PO SCH (08:53)
[2017-03-15] MEDS ORDERED: CEFUROXIME 500 MG TABLET PO SCH (09:00)
[2017-03-15 09:55] VITALS: BP 103/56
== END 2017-03-15 12:12 | disposition home or self-care (01) | DRG 193 ==
LOC: N.ED 07:31 → EDUNIT# 07:31 → N.EDINP 08:14 → SUATTDRO 08:14 → N.EDINP 09:40 → N.TELEN 10:14 → N.2E 03-13 15:48
PROVIDERS: ADMIT Internal Medicine; ATTEND Internal Medicine Geriatric Medicine
PROC: BRONCHB (2017-03-12 09:50)

== ENCOUNTER 2017-05-05 14:22 | Inpatient (IN) ==
--- NOTE | 2017-05-05 15:07 | XRay Report ---
XR chest 1V portable Indication: Fall. Leg pain. Chest one view: Comparison outside facility x-ray obtained today. Cardiomegaly, pacemaker device, calcified atheromatous disease the aorta, pulmonary hypoinflation, elevated right hemidiaphragm and central pulmonary vascular crowding is again shown. Mild interstitial prominence of the lungs noted, likely mild edema. Impression: Mild CHF. PROCEDURE INTERPRETED AT [facility] DEPARTMENT OF RADIOLOGY Final Report Signed by: Ramsey Johns M.D.
--- NOTE | 2017-05-05 15:08 | XRay Report ---
XR femur LT Indication: Fall. Pain. Left femur 2 views: Comparison 01/24/2011. No fracture or dislocation identified. Soft tissues are unremarkable. Mild arthritic changes of the left knee noted. Left hip joint space is maintained. Impression: Negative femur. Mild arthritis left knee. PROCEDURE INTERPRETED AT [facility] DEPARTMENT OF RADIOLOGY Final Report Signed by: Ramsey Johns M.D.
--- NOTE | 2017-05-05 15:12 | Emergency Department Note ---
Quentin Cespedes Hilary, am scribing for, and in the presence of, Mihai Tejeda MD 14: 48. Ileana Cespedes James D, MD, personally performed the services described in this documentation, ascribed by Keyonna Saavedra in my presence, and it is both accurate and complete [id number] . Arrival - Arrival Chief Complaint: Extremity Problem ED Nursing Triage Note: pt fell about a week ago and had a rectal temp of 93.9 at [facility]. Mode of Arrival: Stretcher Limitations: No Limitations Source: Patient, RN Notes Reviewed Time Seen by Provider: 05/05/17 14:35 - History of Present Illness HPI Narrative: Pt is a 61 y/o female brought into the ED via EMS for c/o pain her left leg which onset a week ago. She states that she fell a week ago and hurt her left leg, she has been walking on it with her walker until this morning. She said this morning her sugar got really low this morning and she woke up in a cold sweat. She is in renal failure, she goes to dialysis Thu, Thu and Thu and she went yesterday. She confirms vomiting and left leg pain. Pt has a PMHx of HTN, CAD, TIA, Seizures, IDDM, Renal failure, Dialysis and IBS. No other complaints or problems stated in the ED. Patient received Levaquin IV prior to transfer at the [facility]. Lactic acid at [facility] was 2.1. Onset (ago): week(s) Consistency: constant Severity: moderate Severity scale (1-10): 2 Allergies/Adverse Reactions: Allergies Allergy/AdvReac Type Severity Reaction Status Date / Time lisinopril Allergy Severe SHORTNESS Verified 03/11/17 07:39 OF BREATH Home Medications: Home Medications Medication Instructions Recorded Confirmed Type Carvedilol 6.25 mg PO BID 10/24/15 03/11/17 History Cinacalcet HCl [Sensipar] 180 mg PO DAILY W/SUPPER 10/24/15 03/11/17 History Docusate Sodium 100 mg PO BID 10/24/15 03/11/17 History Insulin NPH/Regular 70/30 [HumuLIN 20 unit SUBCUT DAILY W/SUPPER 10/24/15 History 70/30] Insulin NPH/Regular 70/30 [HumuLIN 40 unit SUBCUT DAILY W/BREAKFAST 10/24/1501/23 History 70/30] Isosorbide Mononitrate [Imdur] 30 mg PO DAILY 10/24/15 03/11/17 History NIFEdipine [Nifedipine ER] 60 mg PO DAILY 10/24/15 03/11/17 History Pantoprazole Tab [Protonix Tab] 40 mg PO DAILY 10/24/15 03/11/17 History Aspirin [Ecotrin] 325 mg PO DAILY 06/30/16 03/11/17 History Gabapentin Cap/Tab [Neurontin 100 mg PO BEDTIME PRN 06/30/16 03/11/17 History Cap/Tab] Lidocaine/Prilocaine 1 applic TOP WITH DIALYSIS 06/30/16 03/11/17 History [Lidocaine/Prilocaine 2.5%-2.5% Cream Kit] Loperamide Cap [Imodium Cap] 2 mg PO Q4HR PRN 06/30/16 03/11/17 History Phenytoin ER Cap [Dilantin Cap] 200 mg PO BID 06/30/16 03/11/17 History B-Complex with Vitamin C [Vitamin 1 each PO DAILY 03/11/17 03/11/17 History B-Complex with Vit C] Bisacodyl Tab [Dulcolax Tab] 10 mg PO DAILY PRN 03/11/17 03/11/17 History Cyclobenzaprine [Flexeril] 10 mg PO DAILY PRN 03/11/17 03/11/17 History Docusate Sodium Cap [Colace Cap] 100 mg PO BID 03/11/17 03/11/17 History Meclizine [Antivert] 12.5 mg PO DAILY PRN 03/11/17 03/11/17 History Cefuroxime Tab [Ceftin] 500 mg PO BID #14 tablet 03/15/17 Rx Dextromethorphan ER Liquid [Delsym] 60 mg PO BID PRN #0 bottle 03/15/17 Rx Review of System - Review of System 12 point system: reviewed and no additional remarkable complaints except as stated - Review of System Constitutional: Absent: fever Gastrointestinal: Present: vomiting Musculoskeletal: Present: leg pain (left) Medical,Surgical,& Family Hx - Medical History Cardio: History of: CAD, Hypertension, Pacemaker (STENT) No history of: Cardiac Dysrhythmia Neurology: History of: Migraine, Seizures, TIA HEENT: History of: Eye Problem (CATARACTS), Dental Problems (TOP DENTURE) Endocrine: History of: Diabetes Mellitus (IDDM) Rheumatology: History of;: Rheumatoid Arthritis Respiratory: History of: Respiratory Problems (SPOT ON LUNGS) Renal: History of: Dialysis (MWF), Renal Failure Gastrointestinal: History of: GERD, GI Problems (IBS , constipation) Other: History of: MRSA - Surgical History Cardiac Surgeries: Sugical HX of: Cardiac Catheterization (with stent placement) HEENT Surgeries: Surgical HX of: Eye Surgery (CATARACTS) Abdominal Surgeries: Surgical HX of: Abdominal Surgery (EXP LAP), Cholecystectomy, Colonoscopy Reproductive Surgeries: Surgical HX of;: Hysterectomy - Family History Family History: Reports;: Family Cancer (father), Family Diabetes (mother, grandmother,sister), Family Heart Disease (father,mother), Family Hypertension Denies;: Family Psychiatric Problems - Social History Smoking Status: Never smoker Frequency of Alcohol Use: None Type of Drug Use: None Exam Physical Examination: GENERAL: This is a morbidly obese female , well-developed in no apparent distress. VITAL SIGNS: Temperature: 96.9 Pulse: 64 Respiratory: 18 Blood Pressure: 120/ 50 O2Sat: 97 HEENT: Head is normocephalic and atraumatic. Pupils are equally round and reactive to light. Extraocular movement are intact. Oropharynx is benign with moist mucous membranes. NECK: Neck is soft and supple without tenderness. There are no masses. There is no lymphadenopathy. LUNGS: Lungs are clear to auscultation bilaterally. Chest rises symmetrically. There is no chest wall tenderness. CV: Heart is regular rate and rhythm without murmurs, rubs, or gallops. ABDOMEN: Abdomen is soft, slight tender to palpation in the LLQ. There are no abnormal masses palpated. There is no organomegaly. Bowel sounds are present and active. SKIN: Skin is warm and dry. No rash. EXTREMITIES: Tender to palpation in her left femur. There is no pedal edema. NEUROLOGIC: Awake, alert, and oriented x4. Cranial nerves II through XII are grossly intact. There are no motorsensory deficits. PSYCHIATRIC: Normal affect. Normal mood. Vital Signs: Vital Signs Temperature 96.9 F L 05/05/17 14:28 Pulse Rate 64 05/05/17 14:28 Respiratory Rate 18 05/05/17 14:28 Blood Pressure 120/53 05/05/17 14:28 O2 Sat by Pulse Oximetry 97 05/05/17 14:28 Course - Consultations Consultation #1: Discussed with hospitalist. Patient will be admitted to their service. Time: 15:11 Results - Labs Lab Results: I have reviewed the patients labs Labs: Labs reviewed from [facility]. CBC: WBCs 5100, hemoglobin 14.9, hematocrit 45.3, platelet count 136,000 Chemistry: Glucose 145, BUN 36, creatinine 5.6, sodium 137, potassium 5.0, chloride 98, CO2 26.1, T bili 0.5, lactic acid 2.1. EKG: Atrial paced rhythm with left ventricular hypertrophy, rate 58, nonspecific ST-T wave changes - Diagnostic Findings Procedure: Chest x-ray: image reviewed by me (Right lower lobe pneumonia, cardiomegaly, pacemaker with leads in place.), X-ray: image reviewed by me ( Left femur x-ray: No evidence of fracture) Disposition Clinical Impression: Pneumonia, End stage renal disease, Pain of left femur, Diabetes mellitus, Recent hypoglycemia, Essential hypertension Case discussed with: patient Disposition: Still a Patient Time of Disposition: 15:11
[2017-05-05 15:53] LABS: Basophils % 0.6 % (0.0-0.8); Eosinophils # 0.1 10*3/uL (0.0-0.87); Eosinophils % 1.4 % (0.00-10.9); Hematocrit 44.7 VOL% (35.7-47.0); Hemoglobin 15.3 GM/DL (12.0-16.0); Immature Granulocytes % 0.4 %; Immature Granulocytes Absolute 0.02 #; Lymphocytes # 0.8 10*3/uL (1.4-4.0); Mean Corpuscular HGB Conc 34.2 GM/DL (32-36); Mean Corpuscular Hemoglobin 34 PG (27-34); Mean Platelet Volume 11.1 FL (9.6-12.0); Monocytes # 0.3 10*3/uL (0.11-0.8); Monocytes % 5.7 % (1.7-12.7); Neutrophils # 3.9 10*3/uL (1.4-7.4); Neutrophils % 75.9 % (38.7-73.9); Platelet Count 136 T/CUMM (130-400); Red Blood Count 4.47 MC/CUMM (3.8-5.5); Red Cell Distribution Width 13.8 % (9.3-17.3); White Blood Count 5.1 T/CUMM (4-12)
--- NOTE | 2017-05-05 16:10 | Hospitalist History & Physical ---
Assessment and Plan (1) Diabetes mellitus Status: Acute Assessment and plan: Impression: 1. Type II DM with episode of hypoglycemia 2. End-stage renal disease 3. Coronary disease, status post stenting 4. Pacemaker 5. Abrasion left knee Plan: Notify nephrology of admission. Check glucoses. She may need insulin adjusting. Plan on discharge in the morning. This note was completed using [employer] voice recognition software. There may be frame nailer errors as a result. Current Visit: Yes Qualifiers: Diabetes mellitus type: type 2 Diabetes mellitus complication status: with hypoglycemia Diabetes mellitus complication detail: without coma Diabetes mellitus medical terminologist insulin use: with alf use Qualified Code(s): E11.649 - Type 2 diabetes mellitus with hypoglycemia without coma; Z79.4 - group home ( current) use of insulin History of Present Illness Chief complaint: My sugar is low History of present illness: Ms. Ardon is a 61 year old female She presented to the hospital for evaluation of hypoglycemia. She was apparently found down by a family member, who gave her some sugar. She reports a lesion on her left knee that happened about a week ago after she fell. She is says that she has been having some difficulty getting up and about on the leg. She has been on dialysis for 9 years, and dialyzes on Thursday, Thursday, and Thursday. She reports that she had her regular dialysis session yesterday. She has a history of myocardial infarction about 5 years ago, and had stents and a pacemaker placed at that time. She has had some intermittent chest pain. She says that she saw cardiology a few months ago, and was told that she was doing fairly well. She was admitted last month for pneumonia. She says that she has had some cough with some white sputum, but no hemoptysis. She presented to the emergency room for the symptoms, and was given a diagnosis of pneumonia, which she does not have. Home Medications Medication Instructions Recorded Confirmed Type Carvedilol 6.25 mg PO BID 10/24/15 03/11/17 History Cinacalcet HCl [Sensipar] 180 mg PO DAILY W/SUPPER 10/24/15 03/11/17 History Docusate Sodium 100 mg PO BID 10/24/15 03/11/17 History Insulin NPH/Regular 70/30 [HumuLIN 20 unit SUBCUT DAILY W/SUPPER 10/24/15 History 70/30] Insulin NPH/Regular 70/30 [HumuLIN 40 unit SUBCUT DAILY W/BREAKFAST 10/24/1501/23 History 70/30] Isosorbide Mononitrate [Imdur] 30 mg PO DAILY 10/24/15 03/11/17 History NIFEdipine [Nifedipine ER] 60 mg PO DAILY 10/24/15 03/11/17 History Pantoprazole Tab [Protonix Tab] 40 mg PO DAILY 10/24/15 03/11/17 History Aspirin [Ecotrin] 325 mg PO DAILY 06/30/16 03/11/17 History Gabapentin Cap/Tab [Neurontin 100 mg PO BEDTIME PRN 06/30/16 03/11/17 History Cap/Tab] Lidocaine/Prilocaine 1 applic TOP WITH DIALYSIS 06/30/16 03/11/17 History [Lidocaine/Prilocaine 2.5%-2.5% Cream Kit] Loperamide Cap [Imodium Cap] 2 mg PO Q4HR PRN 06/30/16 03/11/17 History Phenytoin ER Cap [Dilantin Cap] 200 mg PO BID 06/30/16 03/11/17 History B-Complex with Vitamin C [Vitamin 1 each PO DAILY 03/11/17 03/11/17 History B-Complex with Vit C] Bisacodyl Tab [Dulcolax Tab] 10 mg PO DAILY PRN 03/11/17 03/11/17 History Cyclobenzaprine [Flexeril] 10 mg PO DAILY PRN 03/11/17 03/11/17 History Docusate Sodium Cap [Colace Cap] 100 mg PO BID 03/11/17 03/11/17 History Meclizine [Antivert] 12.5 mg PO DAILY PRN 03/11/17 03/11/17 History Cefuroxime Tab [Ceftin] 500 mg PO BID #14 tablet 03/15/17 Rx Dextromethorphan ER Liquid [Delsym] 60 mg PO BID PRN #0 bottle 03/15/17 Rx Allergies Allergy/AdvReac Type Severity Reaction Status Date / Time lisinopril Allergy Severe SHORTNESS Verified 03/11/17 07:39 OF BREATH Medical,Surgical,& Family Hx - Medical History Cardio: History of: CAD, Hypertension, Pacemaker (STENT) No history of: Cardiac Dysrhythmia Neurology: History of: Migraine, Seizures, TIA HEENT: History of: Eye Problem (CATARACTS), Dental Problems (TOP DENTURE) Endocrine: History of: Diabetes Mellitus (IDDM) Rheumatology: History of;: Rheumatoid Arthritis Respiratory: History of: Respiratory Problems (SPOT ON LUNGS) Renal: History of: Dialysis (MWF), Renal Failure Gastrointestinal: History of: GERD, GI Problems (IBS , constipation) Other: History of: MRSA - Surgical History Cardiac Surgeries: Sugical HX of: Cardiac Catheterization (with stent placement) HEENT Surgeries: Surgical HX of: Eye Surgery (CATARACTS) Abdominal Surgeries: Surgical HX of: Abdominal Surgery (EXP LAP), Cholecystectomy, Colonoscopy Reproductive Surgeries: Surgical HX of;: Hysterectomy - Family History Family History: Reports;: Family Cancer (father), Family Diabetes (mother, grandmother,sister), Family Heart Disease (father,mother), Family Hypertension Denies;: Family Psychiatric Problems - Social History Smoking Status: Never smoker Frequency of Alcohol Use: None Type of Drug Use: None Review of systems: Well documented in her old chart and unchanged from prior admission Exam - Constitutional Vitals: Period Temp Pulse Resp BP Sys/Wang Pulse Ox Last 24 Hr 96.9 F-96.9 F 64-64 18-18 120-120/50-53 97 General: She is a pleasant lady in no distress. HEENT: Pupils are round and reactive. Extraocular muscles are normal. Gaze is conjugate. Fundi were not examined. There is no nasal discharge. Mucous membranes are moist. Neck: Supple, without mass, bruit, or venous distention. Cardiac: Rhythm is regular and paced. The carotids are normal. I don't hear murmur gallop or rub. Peripheral pulses are intact. Lungs: She has rales throughout the chest. Abdomen: Soft and nontender. Bowel sounds are present. No mass palpable. Rectal: Not done. Extremities: Healing lesion on the left knee. Changes of venous stasis. Skin: No significant rash or lesion except as described above. Neurologic: She is awake and alert. She moves all 4 extremities. Cranial nerves appear to be intact. No pathologic reflexes are elicited. Results - Labs CBC & BMP: 05/05/17 15:10 Lab Results: I have reviewed the past 24 hour labs - Diagnostic Findings Procedure: X-ray: image reviewed by me (Chest x-ray shows some pulmonary vascular congestion. Neither the radiologist nor I see any pneumonia.)
[2017-05-05] MEDS ORDERED: GLUCAGON 1 MG VIAL IM PRN ×2 (16:12)
[2017-05-05] MEDS ORDERED: DEXTROSE 50% 25 GM/50 ML VIAL IV PRN ×2 (16:12)
[2017-05-05 16:15] LABS: Albumin 3.5 G/DL (3.4-5.0); Bilirubin,Total 0.5 MG/DL (0.2-1.0); Calcium 9.3 MG/DL (8.5-10.1); Osmolality,Calculated 281.8 MOS/KG (273-304); Potassium 5.7 MMOL/L (3.5-5.1); Total Protein 8.5 G/DL (6.4-8.3); Troponin I Only 0.062 NG/ML (0.00-0.045)
[2017-05-05] MEDS: INSULIN LISPRO 100 UNIT/ML SUBCUT SCH ×2 (17:33→20:39)
[2017-05-05] MEDS: ENOXAPARIN 30 MG/0.3 ML SYRINGE SUBCUT SCH (20:39)
[2017-05-06 04:30] LABS: Calcium 8.4 MG/DL (8.5-10.1)
[2017-05-06 04:32] LABS: Potassium 6.1 MMOL/L (3.5-5.1)
[2017-05-06] MEDS ORDERED: SODIUM POLYSTYRENE SULFATE 15 GM/60 ML BOTTLE PO ONE (04:38)
[2017-05-06 08:39] LABS: Calcium 8.3 MG/DL (8.5-10.1); Osmolality,Calculated 285.8 MOS/KG (273-304); Potassium 5.2 MMOL/L (3.5-5.1)
--- NOTE | 2017-05-06 09:05 | Nephrology Consult Note ---
History of Present Illness Chief complaint: Hypoglycemia History of present illness: Ms. Ardon is a 61 year old female history of end-stage renal disease due to hypertension and diabetes she also has a history of coronary artery disease status post stent placement. The patient presented after being found down by family members found to be hypoglycemic at the time. She has had a history of multiple falls over the last several weeks. No fevers or chills but she does describe some productive coughing. Her x-ray shows mild CHF no evidence of a pneumonia. She has no elevated white count. On admission she did have an elevated potassium level of 6.1 which has improved to potassium of 5.2. Nephrology is been consulted for renal issues as today is her dialysis day. Home Medications Medication Instructions Recorded Confirmed Type Carvedilol 6.25 mg PO BID 10/24/15 05/05/17 History Cinacalcet HCl [Sensipar] 180 mg PO DAILY W/SUPPER 10/24/15 05/05/17 History Insulin NPH/Regular 70/30 [HumuLIN 20 unit SUBCUT DAILY W/SUPPER 10/24/15 History 70/30] Insulin NPH/Regular 70/30 [HumuLIN 40 unit SUBCUT DAILY W/BREAKFAST 10/24/15 History 70/30] Isosorbide Mononitrate [Imdur] 30 mg PO DAILY 10/24/15 05/05/17 History NIFEdipine [Nifedipine ER] 60 mg PO DAILY 10/24/15 05/05/17 History Pantoprazole Tab [Protonix Tab] 40 mg PO DAILY 10/24/15 05/05/17 History Aspirin [Ecotrin] 325 mg PO DAILY 06/30/16 05/05/17 History Gabapentin Cap/Tab [Neurontin 100 mg PO BEDTIME PRN 06/30/16 05/05/17 History Cap/Tab] Lidocaine/Prilocaine 1 applic TOP WITH DIALYSIS 06/30/16 05/05/17 History [Lidocaine/Prilocaine 2.5%-2.5% Cream Kit] Loperamide Cap [Imodium Cap] 2 mg PO Q4HR PRN 06/30/16 05/05/17 History Phenytoin ER Cap [Dilantin Cap] 200 mg PO BID 06/30/16 05/05/17 History B-Complex with Vitamin C [Vitamin 1 each PO DAILY 03/11/17 05/05/17 History B-Complex with Vit C] Bisacodyl Tab [Dulcolax Tab] 10 mg PO DAILY PRN 03/11/17 05/05/17 History Cyclobenzaprine [Flexeril] 10 mg PO DAILY PRN 03/11/17 05/05/17 History Docusate Sodium Cap [Colace Cap] 100 mg PO BID 03/11/17 05/05/17 History Meclizine [Antivert] 12.5 mg PO DAILY PRN 03/11/17 05/05/17 History Atorvastatin [Lipitor] 20 mg PO BEDTIME 05/05/17 05/05/17 History Calcium Acetate [Phoslo] 2,001 mg PO TID W/MEALS 05/05/17 05/05/17 History Nitroglycerin 0.4 mg PO DIRECTED 05/05/17 05/05/17 History Allergies Allergy/AdvReac Type Severity Reaction Status Date / Time lisinopril Allergy Severe SHORTNESS Verified 03/11/17 07:39 OF BREATH Medical,Surgical,& Family Hx - Medical History Cardio: History of: CAD, Hypertension, Pacemaker (STENT) No history of: Cardiac Dysrhythmia Neurology: History of: Migraine, Seizures, TIA HEENT: History of: Eye Problem (CATARACTS), Dental Problems (TOP DENTURE) Endocrine: History of: Diabetes Mellitus (IDDM) Rheumatology: History of;: Rheumatoid Arthritis Respiratory: History of: Respiratory Problems (SPOT ON LUNGS) Renal: History of: Dialysis (MWF), Renal Failure Gastrointestinal: History of: GERD, GI Problems (IBS , constipation) Other: History of: MRSA - Surgical History Cardiac Surgeries: Sugical HX of: Cardiac Catheterization (with stent placement) HEENT Surgeries: Surgical HX of: Eye Surgery (CATARACTS) Abdominal Surgeries: Surgical HX of: Abdominal Surgery (EXP LAP), Cholecystectomy, Colonoscopy Reproductive Surgeries: Surgical HX of;: Hysterectomy - Family History Family History: Reports;: Family Cancer (father), Family Diabetes (mother, grandmother,sister), Family Heart Disease (father,mother), Family Hypertension Denies;: Family Psychiatric Problems - Social History Smoking Status: Never smoker Frequency of Alcohol Use: None Type of Drug Use: None Review of Systems Constitutional: fatigue, no anorexia, no chills, no fever(s) Cardiovascular: no diaphoresis, no dyspnea Respiratory: cough Gastrointestinal: no abdominal pain Exam - Vital Signs Vital signs: Period Temp Pulse Resp BP Sys/Wang Pulse Ox Last 24 Hr 96.9 F-97.7 F 52-64 18-20 95-175/40-72 91-97 - General Appearance General appearance: well-developed, well-nourished EENT: ATNC Neck: supple Respiratory: clear Cardiology: no edema, regular rate, regular rhythm Gastrointestinal: normoactive bowel sounds, no tenderness Neurologic: alert and oriented x3 Musculoskeletal: no clubbing Psychiatric: mood/affect appropriate, cooperative Results - Labs CBC & BMP: 05/05/17 15:10 05/06/17 07:43 Assessment and Plan (1) Volume excess Status: Acute Assessment and plan: Hemodialysis today. Current Visit: No (2) End stage renal disease on dialysis Status: Chronic Current Visit: No (3) Hypertension Status: Chronic Current Visit: No Qualifiers: Hypertension type: essential hypertension Qualified Code(s): I10 - Essential (primary) hypertension (4) Diabetes mellitus Status: Chronic Current Visit: Yes Qualifiers: Diabetes mellitus type: type 2 Diabetes mellitus complication status: with hypoglycemia Diabetes mellitus complication detail: without coma Diabetes mellitus automotive vehicle inspector insulin use: with senior care use Qualified Code(s): E11.649 - Type 2 diabetes mellitus with hypoglycemia without coma; Z79.4 - custodial ( current) use of insulin (5) Hyperkalemia Status: Acute Assessment and plan: now resolved. Current Visit: Yes
--- NOTE | 2017-05-06 09:18 | Dialysis Note ---
Dialysis Note - Dialysis Note The patient is seen on dialysis. She is tolerating the procedure. BP 135/70.
[2017-05-06] MEDS: INSULIN LISPRO 100 UNIT/ML SUBCUT SCH ×4 (09:37→21:32)
[2017-05-06] MEDS ORDERED: GABAPENTIN 100 MG CAPSULE PO PRN (16:52)
[2017-05-06] MEDS ORDERED: BISACODYL 5 MG TABLET PO PRN (16:52)
--- NOTE | 2017-05-06 16:57 | Hospitalist Progress Note ---
Assessment and Plan (1) End-stage renal disease needing dialysis Status: Acute Assessment and plan: 1)hypoglycemia- improved but glucose not back to normal off maintenance insulin. continue SSI and consider restarting usual insulin in am. 2)sebaceous cyst- consult surgery in am. 3)hyperkalemia 4)ESRD- had HD today. Current Visit: No (2) Sebaceous cyst Status: Acute Current Visit: Yes (3) Diabetes mellitus Status: Chronic Current Visit: No Qualifiers: Diabetes mellitus type: type 2 Chronic kidney disease stage: on chronic dialysis Hospitalist: Subjective Interval history: Mrs Ardon is feeling ok today except that she has a cyst on the back of her neck that feels infected to her. She has had it drained in the past but i thas recurred and is causing her pain. Her accuchecks off her maintenance insulin are too low to restart the maintenance dose. She is not eating well. She is going to stay tonight for eval of abscess and monitoring of her hypoglycemia. Exam - Constitutional Vitals: Period Temp Pulse Resp BP Sys/Wang Pulse Ox Last 24 Hr 97.5 F-97.7 F 52-63 18-20 95-175/40-72 91-96 General appearance: no acute distress, over weight - Head Head exam: Present: normocephalic, atraumatic - Eye Eye exam: Present: EOMI. Absent: scleral icterus - Respiratory Respiratory exam: Present: clear to auscultation bilaterally - Cardiovascular Cardiovascular exam: Present: regular rate and rhythm - GI/Abdominal GI/Abdominal exam: Present: normal bowel sounds, soft. Absent: tenderness - Extremities Exam Extremities exam: Absent: edema - Back Exam Back exam: Present: other (at base of neck over T1 she has a 4x4 cm soft mobile mass that is tender to touch and a little warm. No drainage. The skin over it is dark red. ) - Neurological Exam Neurological exam: Present: alert, oriented X3, CN II-XII intact. Absent: motor sensory deficit Results - Labs CBC & BMP: 05/05/17 15:10 05/06/17 07:43 Lab Results: I have reviewed the past 24 hour labs
[2017-05-06] MEDS ORDERED: INSULIN NPH/REGULAR 70/30 100 UNIT/ML SUBCUT SCH (17:00)
[2017-05-06] MEDS ORDERED: CINACALCET 30 MG TABLET PO SCH (17:00)
[2017-05-06] MEDS: MULTIVITAMIN (BEROCCA) TABLET PO SCH (18:52)
[2017-05-06] MEDS: CALCIUM ACETATE 667 MG CAPSULE PO SCH (18:52)
[2017-05-06] MEDS: CEFTAROLINE 200 MG in SODIUM CHLORIDE 0.9% 100 ML IV SCH (19:16)
[2017-05-06] MEDS ORDERED: ATORVASTATIN 20 MG TABLET PO SCH (21:00)
[2017-05-06] MEDS: ENOXAPARIN 30 MG/0.3 ML SYRINGE SUBCUT SCH (21:33)
[2017-05-06] MEDS: DOCUSATE SODIUM 100 MG CAPSULE PO SCH (21:36)
[2017-05-06] MEDS: CARVEDILOL 6.25 MG TABLET PO SCH (21:36)
[2017-05-07] MEDS: PHENYTOIN ER 100 MG CAPSULE PO SCH ×2 (02:47→08:34)
[2017-05-07 05:45] LABS: Basophils % 0.5 % (0.0-0.8); Eosinophils # 0.1 10*3/uL (0.0-0.87); Eosinophils % 2.3 % (0.00-10.9); Hematocrit 41.2 VOL% (35.7-47.0); Hemoglobin 14.2 GM/DL (12.0-16.0); Immature Granulocytes % 0.2 %; Immature Granulocytes Absolute 0.01 #; Lymphocytes # 0.8 10*3/uL (1.4-4.0); Lymphocytes % 13.8 % (21.3-54.2); Mean Corpuscular HGB Conc 34.5 GM/DL (32-36); Mean Corpuscular Hemoglobin 34 PG (27-34); Mean Corpuscular Volume 99.5 FL (87-102); Mean Platelet Volume 11.3 FL (9.6-12.0); Monocytes # 0.4 10*3/uL (0.11-0.8); Neutrophils # 4.4 10*3/uL (1.4-7.4); Neutrophils % 76.2 % (38.7-73.9); Platelet Count 117 T/CUMM (130-400); Red Blood Count 4.14 MC/CUMM (3.8-5.5); Red Cell Distribution Width 13.6 % (9.3-17.3); White Blood Count 5.7 T/CUMM (4-12)
[2017-05-07 06:14] LABS: Calcium 7.6 MG/DL (8.5-10.1); Osmolality,Calculated 281.2 MOS/KG (273-304); Potassium 5.6 MMOL/L (3.5-5.1)
[2017-05-07] MEDS ORDERED: INSULIN NPH/REGULAR 70/30 100 UNIT/ML SUBCUT SCH (08:00)
[2017-05-07] MEDS: DOCUSATE SODIUM 100 MG CAPSULE PO SCH (08:33)
[2017-05-07] MEDS: CALCIUM ACETATE 667 MG CAPSULE PO SCH ×2 (08:33→12:07)
[2017-05-07] MEDS: INSULIN LISPRO 100 UNIT/ML SUBCUT SCH ×2 (08:34→12:38)
[2017-05-07] MEDS: CARVEDILOL 6.25 MG TABLET PO SCH (08:34)
[2017-05-07] MEDS: MULTIVITAMIN (BEROCCA) TABLET PO SCH (08:34)
[2017-05-07] MEDS: CEFTAROLINE 200 MG in SODIUM CHLORIDE 0.9% 100 ML IV SCH (08:35)
[2017-05-07] MEDS ORDERED: ISOSORBIDE MONONITRATE 30 MG TABLET PO SCH (09:00)
[2017-05-07] MEDS ORDERED: ASPIRIN EC 325 MG TABLET PO SCH (09:00)
--- NOTE | 2017-05-07 11:02 | Nephrology Progress Note ---
Nephrology - PN: Subj Interval history: The patient is resting no acute changes. She tolerated dialysis on yesterday. No shortness of breath states her breathing is improved. Exam (PN)-Nephrology - Vital Signs Vital signs: Period Temp Pulse Resp BP Sys/Wang Pulse Ox Last 24 Hr 97.3 F-98.3 F 60-77 18-20 103-177/50-81 94-99 - General Appearance General appearance: well-developed, well-nourished EENT: ATNC Neck: supple Respiratory: clear Cardiology: regular rate, regular rhythm Gastrointestinal: normoactive bowel sounds, no tenderness Neurologic: alert and oriented x3 Musculoskeletal: no clubbing Psychiatric: mood/affect appropriate - Lab 05/07/17 05:12 05/07/17 05:12 Most recent lab results Calcium 7.6 MG/DL (8.5-10.1) L 05/07/17 05:12 Assessment and Plan (1) Volume excess Status: Acute Assessment and plan: Hemodialysis as scheduled Current Visit: No (2) End stage renal disease on dialysis Status: Chronic Current Visit: No (3) Hypertension Status: Chronic Current Visit: No Qualifiers: Hypertension type: essential hypertension Qualified Code(s): I10 - Essential (primary) hypertension (4) Diabetes mellitus Status: Chronic Current Visit: Yes Qualifiers: Diabetes mellitus type: type 2 Diabetes mellitus complication status: with hypoglycemia Diabetes mellitus complication detail: without coma Diabetes mellitus termite renewal inspector insulin use: with long-term use Qualified Code(s): E11.649 - Type 2 diabetes mellitus with hypoglycemia without coma; 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 Current Visit: Yes
--- NOTE | 2017-05-07 11:34 | General Surgery Consult Note ---
Assessment and Plan - Time spent with patient Time spent with patient: Greater than 30 minutes (1) Diabetes mellitus Status: Chronic Assessment and plan: Ms. Ardon is a 61-year-old female with history of diabetes and end-stage renal disease on HD admitted by the hospitalist with hyperkalemia and hypoglycemia. She has been dialyzed and she is feeling much better and being discharged home today. Dr. Oleary evaluated a cyst on the back of her neck but does have some induration. He recommended continuing the patient on clindamycin for home and to follow-up with him in his clinic next week for I&D. Dr. Oleary has seen and examined patient. Current Visit: Yes Qualifiers: Diabetes mellitus type: type 2 Diabetes mellitus complication status: with hypoglycemia Diabetes mellitus complication detail: without coma Diabetes mellitus senior care insulin use: with senior care use Qualified Code(s): E11.649 - Type 2 diabetes mellitus with hypoglycemia without coma; Z79.4 - senior living ( current) use of insulin (2) Sebaceous cyst Status: Acute Current Visit: Yes History of Present Illness Chief complaint: Cyst on neck History of present illness: Ms. Ardon is a 61 year old female with history of diabetes and end-stage renal disease on HD admitted by the hospitalist service on 05/05/2017 with hypoglycemia, hyperkalemia in need of dialysis. Patient is feeling better and is being discharged home today. Patient states she had a cyst on the back of her neck that was drained by the [facility] about a year ago that has returned. She has multiple complaints about this being painful. Her white count is normal and she is afebrile. She denies fevers, chills, pain with neck range of motion, shortness of breath, chest pain, abdominal pain, lower extremity edema. Upon exam patient has a 2 cm x 2 cm cyst on the posterior neck that is movable but is tender and mildly indurated. No erythema or cellulitis noted. She is receiving Teflaro. Dr. Oleary was consulted to evaluate. Home Medications Medication Instructions Recorded Confirmed Type Carvedilol 6.25 mg PO BID 10/24/15 05/05/17 History Cinacalcet HCl [Sensipar] 180 mg PO DAILY W/SUPPER 10/24/15 05/05/17 History Insulin NPH/Regular 70/30 [HumuLIN 20 unit SUBCUT DAILY W/SUPPER 10/24/15 History 70/30] Insulin NPH/Regular 70/30 [HumuLIN 40 unit SUBCUT DAILY W/BREAKFAST 10/24/15 History 70/30] Isosorbide Mononitrate [Imdur] 30 mg PO DAILY 10/24/15 05/05/17 History NIFEdipine [Nifedipine ER] 60 mg PO DAILY 10/24/15 05/05/17 History Pantoprazole Tab [Protonix Tab] 40 mg PO DAILY 10/24/15 05/05/17 History Aspirin [Ecotrin] 325 mg PO DAILY 06/30/16 05/05/17 History Gabapentin Cap/Tab [Neurontin 100 mg PO BEDTIME PRN 06/30/16 05/05/17 History Cap/Tab] Lidocaine/Prilocaine 1 applic TOP WITH DIALYSIS 06/30/16 05/05/17 History [Lidocaine/Prilocaine 2.5%-2.5% Cream Kit] Loperamide Cap [Imodium Cap] 2 mg PO Q4HR PRN 06/30/16 05/05/17 History Phenytoin ER Cap [Dilantin Cap] 200 mg PO BID 06/30/16 05/05/17 History B-Complex with Vitamin C [Vitamin 1 each PO DAILY 03/11/17 05/05/17 History B-Complex with Vit C] Bisacodyl Tab [Dulcolax Tab] 10 mg PO DAILY PRN 03/11/17 05/05/17 History Cyclobenzaprine [Flexeril] 10 mg PO DAILY PRN 03/11/17 05/05/17 History Docusate Sodium Cap [Colace Cap] 100 mg PO BID 03/11/17 05/05/17 History Meclizine [Antivert] 12.5 mg PO DAILY PRN 03/11/17 05/05/17 History Atorvastatin [Lipitor] 20 mg PO BEDTIME 05/05/17 05/05/17 History Calcium Acetate [Phoslo] 2,001 mg PO TID W/MEALS 05/05/17 05/05/17 History Nitroglycerin 0.4 mg PO DIRECTED 05/05/17 05/05/17 History Allergies Allergy/AdvReac Type Severity Reaction Status Date / Time lisinopril Allergy Severe SHORTNESS Verified 03/11/17 07:39 OF BREATH Medical,Surgical,& Family Hx - Medical History Cardio: History of: CAD, Hypertension, Pacemaker (STENT) No history of: Cardiac Dysrhythmia Neurology: History of: Migraine, Seizures, TIA HEENT: History of: Eye Problem (CATARACTS), Dental Problems (TOP DENTURE) Endocrine: History of: Diabetes Mellitus (IDDM) Rheumatology: History of;: Rheumatoid Arthritis Respiratory: History of: Respiratory Problems (SPOT ON LUNGS) Renal: History of: Dialysis (MWF), Renal Failure Gastrointestinal: History of: GERD, GI Problems (IBS , constipation) Other: History of: MRSA - Surgical History Cardiac Surgeries: Sugical HX of: Cardiac Catheterization (with stent placement) HEENT Surgeries: Surgical HX of: Eye Surgery (CATARACTS) Abdominal Surgeries: Surgical HX of: Abdominal Surgery (EXP LAP), Cholecystectomy, Colonoscopy Reproductive Surgeries: Surgical HX of;: Hysterectomy - Family History Family History: Reports;: Family Cancer (father), Family Diabetes (mother, grandmother,sister), Family Heart Disease (father,mother), Family Hypertension Denies;: Family Psychiatric Problems - Social History Smoking Status: Never smoker Frequency of Alcohol Use: None Type of Drug Use: None Review of systems: A 10 system review of systems was obtained and pertinent positives and negatives per HPI Exam - Constitutional Vitals: Period Temp Pulse Resp BP Sys/Wang Pulse Ox Last 24 Hr 97.3 F-98.3 F 60-77 18-20 103-177/50-81 94-99 Exam: 61-year-old female, no acute distress, alert and oriented Neck with 2 cm x 2 cm cyst on posterior neck with mild induration and tenderness , no cellulitis Chest clear CV regular rate and rhythm Abdomen soft and nontender Extremities no edema Results - Labs CBC & BMP: 05/07/17 05:12 05/07/17 05:12 Lab Results: I have reviewed the past 24 hour labs Specialty Discharge - Follow Up or Referrals Follow up with: Paul Oleary MD [Physician] - (Next week)
[2017-05-07 12:44] VITALS: BP 154/98
--- NOTE | 2017-05-07 14:02 | Discharge Summary ---
Hospital Course - Hospital Course Hospital Course: Mrs Ardon came after hypoglycemia at home. She stayed because she needed dialysis and she had it yesterday as part of her MWF schedule. She has a sebaceous cyst at the base of her neck which is tender and the skin overlying it is discolored. She was treated with teflaro here and will take clinda at home and see Dr Benson in his office to have it I&D'd next week. I discussed the hypoglycemia with her. it does not happen often and she thinks she had eaten less than usual. She will conitnue to monitor her glucose at home and discuss with her doctor or the nurses at dialysis if she has any more problems. She is feeling back to her usual self and is agreeable with plans to have the cyst treated as outpatient. She will follow up at [facility] as usual and continue her usual dialysis schedule. - Time spent with patient Time with patient DS: Greater than 30 minutes (32 minutes in discharge planning , coordinating care with surgery, discharge medicine reconciliation, and documentation) Diagnosis - Discharge Diagnosis (1) End-stage renal disease needing dialysis Status: Chronic (2) Sebaceous cyst Status: Acute (3) Diabetes mellitus Status: Chronic Specialty Discharge - Follow Up or Referrals Follow up with: Paul Oleary MD [Physician] - 05/13/17 9:45 am (Next week) [facility], PCP [Other] Discharge Plan - Discharge Data Condition at Discharge: Stable Discharge Diet: diabetic diet, heart healthy - Discharge Medications New Clindamycin HCl [Clindamycin Cap] 300 mg PO QID #28 capsule Continue NIFEdipine [Nifedipine ER] 60 mg PO DAILY Isosorbide Mononitrate [Imdur] 30 mg PO DAILY Insulin NPH/Regular 70/30 [HumuLIN 70/30] 20 unit SUBCUT DAILY W/SUPPER Insulin NPH/Regular 70/30 [HumuLIN 70/30] 40 unit SUBCUT DAILY W/BREAKFAST Carvedilol 6.25 mg PO BID Cinacalcet HCl [Sensipar] 180 mg PO DAILY W/SUPPER Pantoprazole Tab [Protonix Tab] 40 mg PO DAILY Phenytoin ER Cap [Dilantin Cap] 200 mg PO BID Aspirin [Ecotrin] 325 mg PO DAILY Gabapentin Cap/Tab [Neurontin Cap/Tab] 100 mg PO BEDTIME PRN PRN Reason: neuropathy Lidocaine/Prilocaine [Lidocaine/Prilocaine 2.5%-2.5% Cream Kit] 1 applic TOP WITH DIALYSIS Loperamide Cap [Imodium Cap] 2 mg PO Q4HR PRN PRN Reason: Diarrhea Bisacodyl Tab [Dulcolax Tab] 10 mg PO DAILY PRN PRN Reason: Constipation Meclizine [Antivert] 12.5 mg PO DAILY PRN PRN Reason: Dizziness Cyclobenzaprine [Flexeril] 10 mg PO DAILY PRN PRN Reason: Muscle Pain Atorvastatin [Lipitor] 20 mg PO BEDTIME Calcium Acetate [Phoslo] 2,001 mg PO TID W/MEALS Docusate Sodium Cap [Colace Cap] 100 mg PO BID B-Complex with Vitamin C [Vitamin B-Complex with Vit C] 1 each PO DAILY Nitroglycerin 0.4 mg PO DIRECTED - Follow Up or Referral Follow Up: Paul Oleary MD [Physician] - 05/13/17 9:45 am (Next week) - Forms/Instructions Exam - Constitutional Vitals: Period Temp Pulse Resp BP Sys/Wang Pulse Ox Last 24 Hr 97.3 F-98.3 F 60-77 18-20 103-177/50-98 94-99 General appearance: no acute distress, over weight - Head Head exam: Present: normocephalic, atraumatic - Eye Eye exam: Present: EOMI. Absent: scleral icterus - Respiratory Respiratory exam: Present: clear to auscultation bilaterally - Cardiovascular Cardiovascular exam: Present: regular rate and rhythm - GI/Abdominal GI/Abdominal exam: Present: normal bowel sounds, soft. Absent: tenderness - Extremities Exam Extremities exam: Absent: edema - Back Exam Back exam: Present: other (base of neck she has a 3 cm round soft, mobile tender mass that has an area of chronic discoloration of the overlying skin. she has had it drained before. it is mildly tender not warm. no drainage. ) Discharge Results Procedures and tests throughout hospitalization: Pending Orders 05/05/17 15:10 Blood Culture Stat Labs on day of discharge: Labs from last 24 hours 05/07/17 05/07/17 05/07/17 12:16 08:02 05:12 WBC RBC Hgb Hct MCV MCH MCHC RDW Plt Count MPV Neut % (Auto) Lymph % (Auto) [place] % (Auto) Eos % (Auto) Baso % (Auto) Neut # (Auto) Lymph # (Auto) [place] # (Auto) Eos # (Auto) Baso # (Auto) Immature Gran % Nucleated RBC % Immature Gran # Nucleated RBCs # Sodium 134 L Potassium 5.6 H Chloride 97 L Carbon Dioxide 25 Anion Gap 17.6 H BUN 31 H D Creatinine 5.60 H GFR Calculation 9 BUN/Creatinine Ratio 5.00 L Glucose 223 H POC Glucose 282 H 230 H Calculated Osmolality 281.2 Calcium 7.6 L 05/07/17 05/07/17 05/06/17 05:12 00:54 20:51 WBC 5.7 RBC 4.14 Hgb 14.2 Hct 41.2 MCV 99.5 MCH 34 MCHC 34.5 RDW 13.6 Plt Count 117 L MPV 11.3 Neut % (Auto) 76.2 H Lymph % (Auto) 13.8 L [place] % (Auto) 7.0 Eos % (Auto) 2.3 Baso % (Auto) 0.5 Neut # (Auto) 4.4 Lymph # (Auto) 0.8 L [place] # (Auto) 0.4 Eos # (Auto) 0.1 Baso # (Auto) 0.0 Immature Gran % 0.2 Nucleated RBC % 0.0 Immature Gran # 0.01 Nucleated RBCs # 0.00 Sodium Potassium Chloride Carbon Dioxide Anion Gap BUN Creatinine GFR Calculation BUN/Creatinine Ratio Glucose POC Glucose 76 206 H Calculated Osmolality Calcium 05/06/17 05/06/17 15:51 12:00 WBC RBC Hgb Hct MCV MCH MCHC RDW Plt Count MPV Neut % (Auto) Lymph % (Auto) [place] % (Auto) Eos % (Auto) Baso % (Auto) Neut # (Auto) Lymph # (Auto) [place] # (Auto) Eos # (Auto) Baso # (Auto) Immature Gran % Nucleated RBC % Immature Gran # Nucleated RBCs # Sodium Potassium Chloride Carbon Dioxide Anion Gap BUN Creatinine GFR Calculation BUN/Creatinine Ratio Glucose POC Glucose 267 H 104 Calculated Osmolality Calcium Preliminary micro results at discharge 05/05/17 15:10 Blood Culture - Preliminary Blood No growth at 1 day 05/05/17 15:10 Blood Culture - Preliminary Blood No growth at 1 day DS: Provider Date of admission: 05/06/17 16:51 Primary care physician: Arianna Stauffer MD Attending physician on admission: Nima Arambula MD Consults: 05/05/17 16:12 Consult to Physician [CONS] Routine Comment: Consulting Provider: Wilton Schumacher Jr. Consult to Specialist Group: Nephrology When should Consulting Provider be notified: Now Person Notified: PETE Date Notified: 05/06/17 Time Notified: 08:10 05/05/17 17:25 Consult to [facility], Educator [CONS] Routine Reason for Property Manager: Diabetes Education 05/06/17 17:11 Consult to Physician [CONS] Routine Comment: sebaceous cyst,?infection Consulting Provider: Paul Oleary Consult to Specialist Group: Surgery Person Notified: MERI Date Notified: 05/07/17 Time Notified: 08:45 Discharging clinician: Angelica Flores MD
== END 2017-05-07 13:25 | disposition home or self-care (01) | DRG 638 ==
LOC: EDUNIT# → EDBD → N.EDINP 14:22 → N.ED 14:22 → SUATTDRO 16:12 → N.EDINP 17:10 → N.TELEN 17:21
PROVIDERS: ADMIT Internal Medicine Geriatric Medicine; ATTEND Internal Medicine

== ENCOUNTER 2017-09-21 12:44 | Inpatient (IN) ==
[2017-09-21] MEDS ORDERED: DEXTROSE 50% 25 GM/50 ML VIAL IV STA (13:09)
[2017-09-21] MEDS ORDERED: CALCIUM CHLORIDE 1,000 MG/10 ML SYRINGE IV STA (13:09)
[2017-09-21] MEDS ORDERED: SODIUM BICARBONATE 50 MEQ/50 ML VIAL IV STA (13:09)
[2017-09-21] MEDS ORDERED: INSULIN REGULAR 100 UNIT/ML IV STA (13:09)
[2017-09-21] MEDS ORDERED: CALCIUM CHLORIDE 1,000 MG/10 ML SYRINGE IV ONE (13:16)
[2017-09-21] MEDS ORDERED: INSULIN REGULAR 100 UNIT/ML ONE (13:16)
[2017-09-21] MEDS ORDERED: DEXTROSE 50% 25 GM/50 ML SYRINGE IV ONE (13:16)
[2017-09-21 13:29] LABS: Basophils % 0.2 % (0.0-0.8); Eosinophils # 0.1 10*3/uL (0.0-0.87); Eosinophils % 2.2 % (0.00-10.9); Immature Granulocytes % 0.4 %; Immature Granulocytes Absolute 0.02 #; Lymphocytes # 1.9 10*3/uL (1.4-4.0); Lymphocytes % 41.6 % (21.3-54.2); Mean Corpuscular HGB Conc 32.7 GM/DL (32-36); Mean Corpuscular Hemoglobin 34 PG (27-34); Mean Corpuscular Volume 102.6 FL (87-102); Mean Platelet Volume 11.6 FL (9.6-12.0); Monocytes # 0.3 10*3/uL (0.11-0.8); Monocytes % 5.7 % (1.7-12.7); Neutrophils # 2.3 10*3/uL (1.4-7.4); Neutrophils % 49.9 % (38.7-73.9); Red Blood Count 1.55 MC/CUMM (3.8-5.5); Red Cell Distribution Width 13.9 % (9.3-17.3); White Blood Count 4.6 T/CUMM (4-12)
[2017-09-21 13:30] LABS: Hematocrit 15.9 VOL% (35.7-47.0)
[2017-09-21 13:31] LABS: Hemoglobin 5.2 GM/DL (12.0-16.0); Platelet Count 58 T/CUMM (130-400)
[2017-09-21] MEDS ORDERED: SODIUM CHLORIDE 0.9% 1,000 ML IV PRN (13:40)
[2017-09-21] MEDS ORDERED: ONDANSETRON 4 MG/2 ML VIAL IV PRN (14:15)
[2017-09-21 14:57] LABS: Basophils % 0.3 % (0.0-0.8); Eosinophils # 0.2 10*3/uL (0.0-0.87); Eosinophils % 1.5 % (0.00-10.9); Hematocrit 35.4 VOL% (35.7-47.0); Immature Granulocytes % 0.5 %; Immature Granulocytes Absolute 0.06 #; Lymphocytes # 0.7 10*3/uL (1.4-4.0); Lymphocytes % 6.2 % (21.3-54.2); Mean Corpuscular HGB Conc 34.7 GM/DL (32-36); Mean Corpuscular Hemoglobin 33 PG (27-34); Mean Corpuscular Volume 95.9 FL (87-102); Mean Platelet Volume 11.7 FL (9.6-12.0); Monocytes # 0.6 10*3/uL (0.11-0.8); Monocytes % 5.4 % (1.7-12.7); Neutrophils # 9.4 10*3/uL (1.4-7.4); Neutrophils % 86.1 % (38.7-73.9); Red Cell Distribution Width 13.7 % (9.3-17.3)
[2017-09-21 15:00] LABS: Hemoglobin 12.3 GM/DL (12.0-16.0); Platelet Count 113 T/CUMM (130-400); Red Blood Count 3.69 MC/CUMM (3.8-5.5); White Blood Count 10.9 T/CUMM (4-12)
[2017-09-21 15:22] LABS: % Iron Saturation 33.5 % (18-50); Ferritin 1782.8 ng/ml (8-252)
[2017-09-21 15:24] LABS: Albumin 2.8 G/DL (3.4-5.0); Bilirubin,Total 0.6 MG/DL (0.2-1.0); Calcium 9.4 MG/DL (8.5-10.1); Potassium 4.1 MMOL/L (3.5-5.1); Total Protein 6.7 G/DL (6.4-8.3)
[2017-09-21 15:26] LABS: Risk Ratio 2.8; Thyroid Stimulating Hormone 1.03 uIU/ml (0.358-3.74)
[2017-09-21 15:26] LABS: Troponin I Only 0.21 NG/ML (0.00-0.045)
[2017-09-21 15:34] LABS: Folate > 24.0 NG/ML (5.4-24.0); Vitamin B12 477 PG/ML (211-911)
[2017-09-21] MEDS ORDERED: LIDOCAINE 1% 20 ML VIAL MISC INJ ONE (16:53)
[2017-09-21] MEDS ORDERED: LIDOCAINE 2% 20 ML VIAL RESP TX ONE (16:53)
[2017-09-21 17:18] LABS: ABG Base Excess 3.5 MMOL/L (-2.5-2.5); ABG HCO3 27.6 MMOL/L (20-26); ABG PH 7.427 (7.35-7.45); ABG TCO2 24.6 MMOL/L (23-27)
[2017-09-21] MEDS: SODIUM CHLORIDE 0.9% 1,000 ML IV SCH (17:43)
[2017-09-21] MEDS: PANTOPRAZOLE 40 MG VIAL IV SCH (17:44)
[2017-09-21] MEDS: metroNIDAZOLE INJ 500 MG in PREMIX 1 EACH IV SCH (17:44)
[2017-09-21] MEDS: HEPARIN 5,000 UNIT/1 ML VIAL SUBCUT SCH (17:44)
[2017-09-21] MEDS ORDERED: ENOXAPARIN 30 MG/0.3 ML SYRINGE SUBCUT SCH (21:00)
[2017-09-21] MEDS: PROPOFOL 1,000 MG/100 ML BOTTLE IV SCH (21:15)
[2017-09-21] MEDS: CARVEDILOL 6.25 MG TABLET PO SCH (22:17)
[2017-09-21] MEDS: ATORVASTATIN 20 MG TABLET PO SCH (22:17)
[2017-09-22] MEDS: SODIUM CHLORIDE 0.9% 1,000 ML IV SCH ×3 (00:47→15:42)
[2017-09-22] MEDS: metroNIDAZOLE INJ 500 MG in PREMIX 1 EACH IV SCH ×3 (03:00→17:19)
[2017-09-22 04:11] LABS: ABG Base Excess 2.7 MMOL/L (-2.5-2.5); ABG HCO3 26.1 MMOL/L (20-26); ABG PCO2 35.9 MM HG (35-48); ABG PH 7.479 (7.35-7.45); ABG PO2 197.1 MM HG (80-95); ABG TCO2 27.2 MMOL/L (23-27); Pt O2 Delivery Device Ventilator
[2017-09-22 04:57] LABS: Basophils % 0.4 % (0.0-0.8); Eosinophils % 0.4 % (0.00-10.9); Hematocrit 33.5 VOL% (35.7-47.0); Hemoglobin 11.6 GM/DL (12.0-16.0); Immature Granulocytes % 0.1 %; Immature Granulocytes Absolute 0.01 #; Lymphocytes # 0.8 10*3/uL (1.4-4.0); Lymphocytes % 10.9 % (21.3-54.2); Mean Corpuscular HGB Conc 34.6 GM/DL (32-36); Mean Corpuscular Hemoglobin 33 PG (27-34); Mean Corpuscular Volume 94.6 FL (87-102); Mean Platelet Volume 11.7 FL (9.6-12.0); Monocytes # 0.7 10*3/uL (0.11-0.8); Monocytes % 9.9 % (1.7-12.7); Neutrophils # 5.8 10*3/uL (1.4-7.4); Neutrophils % 78.3 % (38.7-73.9); Platelet Count 113 T/CUMM (130-400); Red Blood Count 3.54 MC/CUMM (3.8-5.5); Red Cell Distribution Width 13.9 % (9.3-17.3); White Blood Count 7.4 T/CUMM (4-12)
[2017-09-22] MEDS: PROPOFOL 1,000 MG/100 ML BOTTLE IV SCH ×3 (05:28→20:09)
[2017-09-22] MEDS: HEPARIN 5,000 UNIT/1 ML VIAL SUBCUT SCH ×2 (05:28→17:19)
[2017-09-22 05:52] LABS: Calcium 8.7 MG/DL (8.5-10.1); Magnesium 2.1 MG/DL (1.8-2.4); Osmolality,Calculated 280.8 MOS/KG (273-304); Potassium 4.7 MMOL/L (3.5-5.1)
[2017-09-22] MEDS ORDERED: GLUCAGON 1 MG VIAL IM PRN (07:31)
[2017-09-22] MEDS ORDERED: DEXTROSE 50% 25 GM/50 ML VIAL IV PRN (07:31)
[2017-09-22] MEDS: PANTOPRAZOLE 40 MG VIAL IV SCH (09:36)
[2017-09-22] MEDS: CARVEDILOL 6.25 MG TABLET PO SCH ×2 (09:36→20:09)
[2017-09-22] MEDS: ASPIRIN EC 325 MG TABLET PO SCH (09:36)
[2017-09-22] MEDS: INSULIN REGULAR 100 UNIT/ML SUBCUT SCH ×3 (12:43→23:32)
[2017-09-22] MEDS: ATORVASTATIN 20 MG TABLET PO SCH (20:10)
[2017-09-23] MEDS: PROPOFOL 1,000 MG/100 ML BOTTLE IV SCH ×6 (02:00→23:44)
[2017-09-23] MEDS: metroNIDAZOLE INJ 500 MG in PREMIX 1 EACH IV SCH ×2 (02:00→12:11)
[2017-09-23 03:42] LABS: ABG Base Excess -2.1 MMOL/L (-2.5-2.5); ABG HCO3 22.7 MMOL/L (20-26); ABG Oxygen Saturation 99.7 % (95-100); ABG PCO2 35.6 MM HG (35-48); ABG PH 7.401 (7.35-7.45); ABG TCO2 19.7 MMOL/L (23-27); Pt O2 Delivery Device Ventilator
[2017-09-23] MEDS: HEPARIN 5,000 UNIT/1 ML VIAL SUBCUT SCH ×2 (04:56→15:51)
[2017-09-23 05:18] LABS: Basophils % 0.4 % (0.0-0.8); Eosinophils # 0.1 10*3/uL (0.0-0.87); Eosinophils % 1.4 % (0.00-10.9); Hematocrit 34.3 VOL% (35.7-47.0); Hemoglobin 11.8 GM/DL (12.0-16.0); Immature Granulocytes % 0.3 %; Immature Granulocytes Absolute 0.02 #; Lymphocytes % 13.3 % (21.3-54.2); Mean Corpuscular HGB Conc 34.4 GM/DL (32-36); Mean Corpuscular Hemoglobin 33 PG (27-34); Mean Corpuscular Volume 96.9 FL (87-102); Mean Platelet Volume 12.2 FL (9.6-12.0); Monocytes # 0.6 10*3/uL (0.11-0.8); Monocytes % 7.7 % (1.7-12.7); Neutrophils # 5.9 10*3/uL (1.4-7.4); Neutrophils % 76.9 % (38.7-73.9); Platelet Count 119 T/CUMM (130-400); Red Blood Count 3.54 MC/CUMM (3.8-5.5); White Blood Count 7.7 T/CUMM (4-12)
[2017-09-23] MEDS: INSULIN REGULAR 100 UNIT/ML SUBCUT SCH ×3 (05:24→18:54)
[2017-09-23 05:48] LABS: Phosphorous 4.7 MG/DL (2.5-4.9); Prealbumin 16.2 MG/DL (20-40)
[2017-09-23 05:57] LABS: Calcium 9.1 MG/DL (8.5-10.1); Magnesium 2.4 MG/DL (1.8-2.4); Osmolality,Calculated 284.1 MOS/KG (273-304); Potassium 4.7 MMOL/L (3.5-5.1)
[2017-09-23] MEDS: ASPIRIN EC 325 MG TABLET PO SCH (08:40)
[2017-09-23] MEDS: PANTOPRAZOLE 40 MG VIAL IV SCH (08:40)
[2017-09-23] MEDS: SODIUM CHLORIDE 0.9% 1,000 ML IV SCH ×3 (08:45→15:41)
[2017-09-23] MEDS: CARVEDILOL 6.25 MG TABLET PO SCH ×2 (08:48→21:55)
[2017-09-23] MEDS ORDERED: NOREPINEPHRINE 4 MG/4 ML VIAL IV ONE (09:20)
[2017-09-23] MEDS: NOREPINEPHRINE 8 MG in SODIUM CHLORIDE 0.9% 242 ML IV SCH (09:23)
[2017-09-23] MEDS: ATORVASTATIN 20 MG TABLET PO SCH (21:55)
[2017-09-24] MEDS: INSULIN REGULAR 100 UNIT/ML SUBCUT SCH ×4 (00:04→18:56)
[2017-09-24] MEDS: PROPOFOL 1,000 MG/100 ML BOTTLE IV SCH ×6 (00:08→20:19)
[2017-09-24] MEDS: SODIUM CHLORIDE 0.9% 1,000 ML IV SCH ×4 (04:05→17:28)
[2017-09-24] MEDS: HEPARIN 5,000 UNIT/1 ML VIAL SUBCUT SCH ×2 (04:43→18:50)
[2017-09-24 05:15] LABS: Basophils % 0.3 % (0.0-0.8); Eosinophils # 0.1 10*3/uL (0.0-0.87); Eosinophils % 2.2 % (0.00-10.9); Hematocrit 28.9 VOL% (35.7-47.0); Hemoglobin 11.2 GM/DL (12.0-16.0); Immature Granulocytes % 0.3 %; Immature Granulocytes Absolute 0.02 #; Lymphocytes # 0.7 10*3/uL (1.4-4.0); Lymphocytes % 12.3 % (21.3-54.2); Mean Corpuscular HGB Conc 38.8 GM/DL (32-36); Mean Corpuscular Hemoglobin 37 PG (27-34); Mean Platelet Volume 12.4 FL (9.6-12.0); Monocytes # 0.5 10*3/uL (0.11-0.8); Monocytes % 8.1 % (1.7-12.7); Neutrophils # 4.6 10*3/uL (1.4-7.4); Neutrophils % 76.8 % (38.7-73.9); Platelet Count 108 T/CUMM (130-400); Red Blood Count 3.01 MC/CUMM (3.8-5.5); Red Cell Distribution Width 13.7 % (9.3-17.3)
[2017-09-24 05:47] LABS: Anisocytosis 1+
[2017-09-24 05:48] LABS: Platelet Estimate Adequate
[2017-09-24 06:38] LABS: ABG Base Excess -1.2 MMOL/L (-2.5-2.5); ABG HCO3 23.4 MMOL/L (20-26); ABG Oxygen Saturation 98.8 % (95-100); ABG PCO2 38.7 MM HG (35-48); ABG PH 7.391 (7.35-7.45); ABG TCO2 20.7 MMOL/L (23-27); Allen Test Positive; Pt O2 Delivery Device CPAP
[2017-09-24 08:13] LABS: ABG Base Excess -0.9 MMOL/L (-2.5-2.5); ABG HCO3 23.6 MMOL/L (20-26); ABG PCO2 38.3 MM HG (35-48); ABG PH 7.398 (7.35-7.45); ABG PO2 91.9 MM HG (80-95); ABG TCO2 21.1 MMOL/L (23-27); Allen Test Positive; Pt O2 Delivery Device Ventilator
[2017-09-24] MEDS: PANTOPRAZOLE 40 MG VIAL IV SCH (08:25)
[2017-09-24] MEDS: LEVOFLOXACIN INJ 250 MG in PREMIX 1 EACH IV SCH (08:25)
[2017-09-24] MEDS: fentaNYL 100 MCG/2 ML VIAL IV PRN (08:26)
[2017-09-24] MEDS: CARVEDILOL 6.25 MG TABLET PO SCH ×2 (08:33→20:17)
[2017-09-24] MEDS: ASPIRIN EC 325 MG TABLET PO SCH (08:33)
[2017-09-24 08:42] LABS: Calcium 9.2 MG/DL (8.5-10.1); Magnesium 2.4 MG/DL (1.8-2.4); Osmolality,Calculated 281.2 MOS/KG (273-304); Potassium 4.5 MMOL/L (3.5-5.1)
[2017-09-24] MEDS: hydrALAZINE 20 MG/1 ML VIAL IV PRN (09:21)
[2017-09-24] MEDS: NOREPINEPHRINE 8 MG in SODIUM CHLORIDE 0.9% 242 ML IV SCH (09:25)
[2017-09-24] MEDS: ATORVASTATIN 20 MG TABLET PO SCH (20:17)
[2017-09-25] MEDS: INSULIN REGULAR 100 UNIT/ML SUBCUT SCH ×5 (00:58→23:59)
[2017-09-25] MEDS: PROPOFOL 1,000 MG/100 ML BOTTLE IV SCH (01:45)
[2017-09-25 05:09] LABS: Basophils % 0.5 % (0.0-0.8); Eosinophils # 0.2 10*3/uL (0.0-0.87); Eosinophils % 2.2 % (0.00-10.9); Hematocrit 37.4 VOL% (35.7-47.0); Hemoglobin 12.7 GM/DL (12.0-16.0); Immature Granulocytes % 0.4 %; Immature Granulocytes Absolute 0.03 #; Lymphocytes % 12.8 % (21.3-54.2); Mean Corpuscular Hemoglobin 33 PG (27-34); Mean Corpuscular Volume 98.4 FL (87-102); Mean Platelet Volume 11.9 FL (9.6-12.0); Monocytes # 0.6 10*3/uL (0.11-0.8); Monocytes % 7.8 % (1.7-12.7); Neutrophils # 5.8 10*3/uL (1.4-7.4); Neutrophils % 76.3 % (38.7-73.9); Platelet Count 128 T/CUMM (130-400); Red Cell Distribution Width 13.8 % (9.3-17.3); White Blood Count 7.7 T/CUMM (4-12)
[2017-09-25 05:31] LABS: Calcium 9.3 MG/DL (8.5-10.1); Magnesium 2.6 MG/DL (1.8-2.4); Osmolality,Calculated 281.5 MOS/KG (273-304)
[2017-09-25] MEDS: MORPHINE 2 MG/1 ML SYRINGE IV PRN (05:39)
[2017-09-25] MEDS: SODIUM CHLORIDE 0.9% 1,000 ML IV SCH (05:39)
[2017-09-25] MEDS: HEPARIN 5,000 UNIT/1 ML VIAL SUBCUT SCH ×2 (05:40→16:48)
[2017-09-25 07:14] LABS: ABG Base Excess -2.5 MMOL/L (-2.5-2.5); ABG HCO3 22.7 MMOL/L (20-26); ABG Oxygen Saturation 95.7 % (95-100); ABG PCO2 40.5 MM HG (35-48); ABG PH 7.366 (7.35-7.45); ABG PO2 84.8 MM HG (80-95); ABG TCO2 23.9 MMOL/L (23-27)
[2017-09-25] MEDS: NOREPINEPHRINE 8 MG in SODIUM CHLORIDE 0.9% 242 ML IV SCH (09:53)
[2017-09-25] MEDS: PANTOPRAZOLE 40 MG VIAL IV SCH (11:07)
[2017-09-25 13:08] LABS: HIV Antigen/Antibody Result Nonreactive (Nonreactive)
[2017-09-25] MEDS: FLUCONAZOLE 200 MG TABLET PO SCH (16:47)
[2017-09-25] MEDS: CARVEDILOL 6.25 MG TABLET PO SCH ×2 (16:48→23:59)
[2017-09-25] MEDS: ASPIRIN EC 325 MG TABLET PO SCH (16:48)
[2017-09-25] MEDS: fentaNYL 100 MCG/2 ML VIAL IV PRN (21:20)
[2017-09-25] MEDS: ATORVASTATIN 20 MG TABLET PO SCH (23:59)
[2017-09-26 06:15] LABS: Basophils % 0.6 % (0.0-0.8); Eosinophils # 0.3 10*3/uL (0.0-0.87); Eosinophils % 6.5 % (0.00-10.9); Hematocrit 32.7 VOL% (35.7-47.0); Hemoglobin 11.2 GM/DL (12.0-16.0); Immature Granulocytes % 0.4 %; Immature Granulocytes Absolute 0.02 #; Lymphocytes # 0.9 10*3/uL (1.4-4.0); Lymphocytes % 17.6 % (21.3-54.2); Mean Corpuscular HGB Conc 34.3 GM/DL (32-36); Mean Corpuscular Hemoglobin 33 PG (27-34); Mean Corpuscular Volume 96.7 FL (87-102); Monocytes # 0.4 10*3/uL (0.11-0.8); Monocytes % 7.8 % (1.7-12.7); Neutrophils # 3.5 10*3/uL (1.4-7.4); Neutrophils % 67.1 % (38.7-73.9); Platelet Count 132 T/CUMM (130-400); Red Blood Count 3.38 MC/CUMM (3.8-5.5); Red Cell Distribution Width 13.9 % (9.3-17.3); White Blood Count 5.2 T/CUMM (4-12)
[2017-09-26] MEDS: INSULIN REGULAR 100 UNIT/ML SUBCUT SCH ×3 (06:20→17:26)
[2017-09-26] MEDS: HEPARIN 5,000 UNIT/1 ML VIAL SUBCUT SCH ×2 (06:35→17:29)
[2017-09-26] MEDS: hydrALAZINE 20 MG/1 ML VIAL IV PRN ×2 (06:36→09:07)
[2017-09-26 06:59] LABS: Calcium 9.4 MG/DL (8.5-10.1); Magnesium 2.3 MG/DL (1.8-2.4); Osmolality,Calculated 280.8 MOS/KG (273-304); Potassium 4.1 MMOL/L (3.5-5.1)
[2017-09-26] MEDS: ASPIRIN EC 325 MG TABLET PO SCH (08:35)
[2017-09-26] MEDS: FLUCONAZOLE 200 MG TABLET PO SCH (08:35)
[2017-09-26] MEDS: LEVOFLOXACIN INJ 250 MG in PREMIX 1 EACH IV SCH (08:35)
[2017-09-26] MEDS: PANTOPRAZOLE 40 MG VIAL IV SCH (08:36)
[2017-09-26] MEDS: CARVEDILOL 6.25 MG TABLET PO SCH (08:36)
[2017-09-26] MEDS: CARVEDILOL 25 MG TABLET PO SCH ×2 (09:06→21:55)
[2017-09-26] MEDS: ATORVASTATIN 20 MG TABLET PO SCH (21:55)
[2017-09-26] MEDS: MORPHINE 2 MG/1 ML SYRINGE IV PRN (23:28)
[2017-09-27] MEDS: INSULIN REGULAR 100 UNIT/ML SUBCUT SCH ×4 (01:26→18:27)
[2017-09-27] MEDS: HEPARIN 5,000 UNIT/1 ML VIAL SUBCUT SCH ×2 (04:51→16:41)
[2017-09-27] MEDS: CARVEDILOL 25 MG TABLET PO SCH ×2 (09:11→21:43)
[2017-09-27] MEDS: FLUCONAZOLE 200 MG TABLET PO SCH ×2 (09:14→09:33)
[2017-09-27] MEDS: ASPIRIN EC 325 MG TABLET PO SCH ×2 (09:14→09:33)
[2017-09-27] MEDS: PANTOPRAZOLE 40 MG VIAL IV SCH (10:23)
[2017-09-27 15:23] LABS: ABG Base Excess -0.9 MMOL/L (-2.5-2.5); ABG HCO3 23.6 MMOL/L (20-26); ABG PCO2 40.8 MM HG (35-48); ABG PH 7.381 (7.35-7.45); ABG PO2 61.8 MM HG (80-95); ABG TCO2 21.8 MMOL/L (23-27); Allen Test Positive
[2017-09-27] MEDS: LEVALBUTEROL 1.25 MG/3 ML NEB RESP TX SCH (16:02)
[2017-09-27] MEDS: ACETAMINOPHEN 325 MG TABLET PO PRN (16:39)
[2017-09-27] MEDS: ATORVASTATIN 20 MG TABLET PO SCH (21:43)
[2017-09-28] MEDS: LEVALBUTEROL 1.25 MG/3 ML NEB RESP TX SCH ×3 (00:35→14:00)
[2017-09-28] MEDS: INSULIN REGULAR 100 UNIT/ML SUBCUT SCH ×4 (01:33→18:18)
[2017-09-28] MEDS: HEPARIN 5,000 UNIT/1 ML VIAL SUBCUT SCH ×2 (05:12→16:29)
[2017-09-28 06:00] LABS: Magnesium 2.7 MG/DL (1.8-2.4); Prealbumin 15.3 MG/DL (20-40)
[2017-09-28] MEDS: LEVOFLOXACIN INJ 250 MG in PREMIX 1 EACH IV SCH (09:45)
[2017-09-28] MEDS: PANTOPRAZOLE 40 MG VIAL IV SCH (11:56)
[2017-09-28] MEDS: FLUCONAZOLE 200 MG TABLET PO SCH (11:58)
[2017-09-28] MEDS: ASPIRIN EC 325 MG TABLET PO SCH (11:59)
[2017-09-28] MEDS: CARVEDILOL 25 MG TABLET PO SCH ×2 (12:10→21:00)
[2017-09-28] MEDS: ACETAMINOPHEN 325 MG TABLET PO PRN (13:55)
[2017-09-28] MEDS: ATORVASTATIN 20 MG TABLET PO SCH (20:25)
[2017-09-29] MEDS: LEVALBUTEROL 1.25 MG/3 ML NEB RESP TX SCH ×3 (00:18→14:16)
[2017-09-29] MEDS: INSULIN REGULAR 100 UNIT/ML SUBCUT SCH ×3 (00:44→12:15)
[2017-09-29] MEDS: HEPARIN 5,000 UNIT/1 ML VIAL SUBCUT SCH (04:30)
[2017-09-29 06:03] LABS: Basophils % 0.8 % (0.0-0.8); Eosinophils # 0.3 10*3/uL (0.0-0.87); Eosinophils % 5.5 % (0.00-10.9); Hematocrit 33.4 VOL% (35.7-47.0); Hemoglobin 11.4 GM/DL (12.0-16.0); Immature Granulocytes % 0.6 %; Immature Granulocytes Absolute 0.03 #; Lymphocytes # 0.8 10*3/uL (1.4-4.0); Lymphocytes % 14.5 % (21.3-54.2); Mean Corpuscular HGB Conc 34.1 GM/DL (32-36); Mean Corpuscular Hemoglobin 33 PG (27-34); Mean Corpuscular Volume 97.1 FL (87-102); Mean Platelet Volume 11.7 FL (9.6-12.0); Monocytes # 0.5 10*3/uL (0.11-0.8); Monocytes % 9.8 % (1.7-12.7); Neutrophils # 3.6 10*3/uL (1.4-7.4); Neutrophils % 68.8 % (38.7-73.9); Platelet Count 154 T/CUMM (130-400); Red Blood Count 3.44 MC/CUMM (3.8-5.5); Red Cell Distribution Width 14.1 % (9.3-17.3); White Blood Count 5.2 T/CUMM (4-12)
[2017-09-29 06:22] LABS: Calcium 9.2 MG/DL (8.5-10.1); Osmolality,Calculated 284.8 MOS/KG (273-304); Potassium 4.1 MMOL/L (3.5-5.1)
[2017-09-29] MEDS: FLUCONAZOLE 200 MG TABLET PO SCH (09:04)
[2017-09-29] MEDS: ASPIRIN EC 325 MG TABLET PO SCH (09:07)
[2017-09-29] MEDS: CARVEDILOL 25 MG TABLET PO SCH ×2 (09:46→10:18)
[2017-09-29] MEDS: PANTOPRAZOLE 40 MG VIAL IV SCH (09:47)
[2017-09-29 15:55] VITALS: BP 134/78
== END 2017-09-29 16:20 | DRG 296 ==
LOC: EDUNIT# → EDBD → N.ED 12:44 → SUATTDRO 13:56 → N.EDINP 13:56 → N.CC 15:02 → N.3E 09-26 19:05
PROVIDERS: ADMIT Pediatrics; ATTEND Internal Medicine

== ENCOUNTER 2018-07-19 14:50 | Inpatient (IN) ==
[2018-07-19] MEDS ORDERED: ASPIRIN 325 MG TABLET PO STA (15:44)
[2018-07-19] MEDS ORDERED: ASPIRIN 300 MG SUPP RECTAL ONE (16:00)
[2018-07-19] MEDS ORDERED: ASPIRIN 300 MG SUPP RECTAL STA (16:05)
[2018-07-19 16:18] LABS: Basophils % 0.1 % (0.0-0.8); Eosinophils % 0.2 % (0.00-10.9); Hematocrit 31.8 VOL% (35.7-47.0); Immature Granulocytes % 0.6 %; Immature Granulocytes Absolute 0.05 #; Lymphocytes # 0.4 10*3/uL (1.4-4.0); Lymphocytes % 4.1 % (21.3-54.2); Mean Corpuscular HGB Conc 34.6 GM/DL (32-36); Mean Corpuscular Hemoglobin 32 PG (27-34); Mean Corpuscular Volume 91.6 FL (87-102); Mean Platelet Volume 12.3 FL (9.6-12.0); Monocytes # 0.4 10*3/uL (0.11-0.8); Monocytes % 4.3 % (1.7-12.7); Neutrophils # 8.2 10*3/uL (1.4-7.4); Neutrophils % 90.7 % (38.7-73.9); Platelet Count 91 T/CUMM (130-400); Red Blood Count 3.47 MC/CUMM (3.8-5.5); Red Cell Distribution Width 14.8 % (9.3-17.3); White Blood Count 9.1 T/CUMM (4-12)
[2018-07-19 16:28] LABS: INR 1.1; PT Patient Result 11.2 SECS; Partial Thromboplastin Time 27.4 SECS (0-40)
[2018-07-19 16:40] LABS: Alanine Aminotransferase 27 U/L (13-56); Albumin 3.1 G/DL (3.4-5.0); Alkaline Phosphatase 192 U/L (45-117); Aspartate Amino Transferase 41 U/L (0-37); Blood Urea Nitrogen 15 MG/DL (7-18); Calcium 8.5 MG/DL (8.5-10.1); Glucose 251 MG/DL (74-106); Osmolality,Calculated 281.8 MOS/KG (273-304); Potassium 3.6 MMOL/L (3.5-5.1); Sodium 137 MMOL/L (136-145)
[2018-07-19] MEDS ORDERED: LABETALOL 100 MG/20 ML VIAL IV PRN (17:36)
[2018-07-19] MEDS ORDERED: DEXTROSE 50% 25 GM/50 ML VIAL IV PRN (17:46)
[2018-07-19] MEDS ORDERED: GLUCAGON 1 MG VIAL IM PRN (17:46)
[2018-07-19 19:35] LABS: Lymphocytes 8 % (20-55); Platelet Estimate Decreased; Segmented Neutrophils 90 % (50-85); Total Cells Counted 100
[2018-07-19] MEDS: CARVEDILOL 6.25 MG TABLET PO SCH ×2 (21:53→22:22)
[2018-07-19] MEDS: ENOXAPARIN 30 MG/0.3 ML SYRINGE SUBCUT SCH (21:53)
[2018-07-19] MEDS: GABAPENTIN 100 MG CAPSULE PO SCH ×2 (21:53→22:22)
[2018-07-19] MEDS: INSULIN REGULAR 100 UNIT/ML SUBCUT SCH (22:33)
[2018-07-20 05:39] LABS: Basophils % 0.2 % (0.0-0.8); Hematocrit 33.2 VOL% (35.7-47.0); Hemoglobin 11.2 GM/DL (12.0-16.0); Immature Granulocytes % 1.4 %; Immature Granulocytes Absolute 0.17 #; Lymphocytes # 0.7 10*3/uL (1.4-4.0); Lymphocytes % 5.3 % (21.3-54.2); Mean Corpuscular HGB Conc 33.7 GM/DL (32-36); Mean Corpuscular Hemoglobin 32 PG (27-34); Mean Corpuscular Volume 93.3 FL (87-102); Mean Platelet Volume 13.1 FL (9.6-12.0); Monocytes # 0.8 10*3/uL (0.11-0.8); Monocytes % 6.7 % (1.7-12.7); Neutrophils # 10.5 10*3/uL (1.4-7.4); Neutrophils % 86.4 % (38.7-73.9); Platelet Count 97 T/CUMM (130-400); Red Blood Count 3.56 MC/CUMM (3.8-5.5); Red Cell Distribution Width 14.9 % (9.3-17.3); White Blood Count 12.2 T/CUMM (4-12)
[2018-07-20 05:42] LABS: Risk Ratio 1.75
[2018-07-20 05:50] LABS: Calcium 8.8 MG/DL (8.5-10.1); Osmolality,Calculated 278.7 MOS/KG (273-304); Potassium 3.3 MMOL/L (3.5-5.1)
[2018-07-20 06:02] LABS: Hypochromasia 1+; Ovalocytes Slight; Platelet Estimate Decreased
[2018-07-20] MEDS: INSULIN REGULAR 100 UNIT/ML SUBCUT SCH ×4 (08:19→20:52)
[2018-07-20] MEDS: CALCIUM ACETATE 667 MG CAPSULE PO SCH ×3 (09:50→16:36)
[2018-07-20] MEDS: CARVEDILOL 6.25 MG TABLET PO SCH ×2 (09:50→16:37)
[2018-07-20] MEDS: ISOSORBIDE MONONITRATE 30 MG TABLET PO SCH ×2 (09:50→11:38)
[2018-07-20] MEDS: ATORVASTATIN 40 MG TABLET PO SCH ×2 (09:50→11:38)
[2018-07-20] MEDS: GABAPENTIN 100 MG CAPSULE PO SCH ×4 (09:50→20:54)
[2018-07-20] MEDS: PANTOPRAZOLE 40 MG TABLET PO SCH ×2 (09:51→11:38)
[2018-07-20] MEDS: POTASSIUM CHLORIDE 20 MEQ TABLET PO PRN ×3 (16:37→20:54)
[2018-07-20] MEDS: ENOXAPARIN 30 MG/0.3 ML SYRINGE SUBCUT SCH (20:53)
[2018-07-21 05:41] LABS: Basophils % 0.3 % (0.0-0.8); Eosinophils % 0.1 % (0.00-10.9); Hematocrit 29.1 VOL% (35.7-47.0); Hemoglobin 9.7 GM/DL (12.0-16.0); Immature Granulocytes % 1.2 %; Immature Granulocytes Absolute 0.12 #; Lymphocytes # 0.8 10*3/uL (1.4-4.0); Lymphocytes % 8.1 % (21.3-54.2); Mean Corpuscular HGB Conc 33.3 GM/DL (32-36); Mean Corpuscular Hemoglobin 32 PG (27-34); Mean Corpuscular Volume 95.4 FL (87-102); Mean Platelet Volume 12.4 FL (9.6-12.0); Monocytes # 0.5 10*3/uL (0.11-0.8); Monocytes % 4.8 % (1.7-12.7); Neutrophils # 8.6 10*3/uL (1.4-7.4); Neutrophils % 85.5 % (38.7-73.9); Red Blood Count 3.05 MC/CUMM (3.8-5.5); Red Cell Distribution Width 14.9 % (9.3-17.3); White Blood Count 10.1 T/CUMM (4-12)
[2018-07-21 05:45] LABS: Platelet Count 75 T/CUMM (130-400)
[2018-07-21 06:07] LABS: Hypochromasia 1+; Macrocytosis Slight
[2018-07-21 06:08] LABS: Platelet Estimate Decreased
[2018-07-21 06:09] LABS: Calcium 8.9 MG/DL (8.5-10.1); Osmolality,Calculated 279.2 MOS/KG (273-304); Potassium 4.8 MMOL/L (3.5-5.1)
[2018-07-21] MEDS: INSULIN REGULAR 100 UNIT/ML SUBCUT SCH ×4 (09:13→23:36)
[2018-07-21] MEDS: CALCIUM ACETATE 667 MG CAPSULE PO SCH ×3 (09:14→17:04)
[2018-07-21] MEDS: GABAPENTIN 100 MG CAPSULE PO SCH ×3 (09:15→23:37)
[2018-07-21] MEDS: DONEPEZIL 5 MG TABLET PO SCH (09:15)
[2018-07-21] MEDS: ATORVASTATIN 40 MG TABLET PO SCH (09:15)
[2018-07-21] MEDS: ASPIRIN EC 325 MG TABLET PO SCH (09:15)
[2018-07-21] MEDS: CARVEDILOL 6.25 MG TABLET PO SCH ×2 (09:15→17:04)
[2018-07-21] MEDS: PANTOPRAZOLE 40 MG TABLET PO SCH (09:15)
[2018-07-21] MEDS: ISOSORBIDE MONONITRATE 30 MG TABLET PO SCH (09:17)
[2018-07-21] MEDS ORDERED: ALBUMIN 25% 12.5 GM in PREMIX 1 EACH IV ONE ×2 (11:00→11:30)
[2018-07-21] MEDS ORDERED: SODIUM CHLORIDE 0.9% 500 ML IV ONE (16:35)
[2018-07-21] MEDS: ENOXAPARIN 30 MG/0.3 ML SYRINGE SUBCUT SCH (23:37)
[2018-07-22 05:55] LABS: Basophils % 0.3 % (0.0-0.8); Eosinophils # 0.1 10*3/uL (0.0-0.87); Eosinophils % 1.2 % (0.00-10.9); Hematocrit 31.2 VOL% (35.7-47.0); Hemoglobin 10.3 GM/DL (12.0-16.0); Immature Granulocytes % 0.4 %; Immature Granulocytes Absolute 0.04 #; Lymphocytes # 0.7 10*3/uL (1.4-4.0); Lymphocytes % 7.1 % (21.3-54.2); Mean Corpuscular Hemoglobin 32 PG (27-34); Mean Corpuscular Volume 97.8 FL (87-102); Monocytes # 0.5 10*3/uL (0.11-0.8); Neutrophils # 8.9 10*3/uL (1.4-7.4); Platelet Count 83 T/CUMM (130-400); Red Blood Count 3.19 MC/CUMM (3.8-5.5); Red Cell Distribution Width 14.6 % (9.3-17.3); White Blood Count 10.3 T/CUMM (4-12)
[2018-07-22 06:09] LABS: Calcium 9.4 MG/DL (8.5-10.1); Potassium 4.2 MMOL/L (3.5-5.1)
[2018-07-22 06:20] LABS: Hypochromasia 1+; Platelet Estimate Decreased
[2018-07-22 06:21] LABS: Macrocytosis Slight
[2018-07-22] MEDS: CALCIUM ACETATE 667 MG CAPSULE PO SCH ×2 (09:15→12:50)
[2018-07-22] MEDS: ATORVASTATIN 40 MG TABLET PO SCH (09:15)
[2018-07-22] MEDS: DONEPEZIL 5 MG TABLET PO SCH (09:15)
[2018-07-22] MEDS: ASPIRIN EC 325 MG TABLET PO SCH (09:15)
[2018-07-22] MEDS: PANTOPRAZOLE 40 MG TABLET PO SCH (09:15)
[2018-07-22] MEDS: CARVEDILOL 6.25 MG TABLET PO SCH (09:15)
[2018-07-22] MEDS: INSULIN REGULAR 100 UNIT/ML SUBCUT SCH ×2 (09:23→12:51)
[2018-07-22] MEDS: GABAPENTIN 100 MG CAPSULE PO SCH (10:13)
[2018-07-22 11:38] VITALS: BP 112/54
== END 2018-07-22 14:45 | DRG 884 ==
LOC: EDUNIT# → EDBD → N.ED 14:50 → SUATTDRO 17:36 → N.EDINP 17:36 → N.2E 18:01
PROVIDERS: ADMIT Internal Medicine; ATTEND Internal Medicine

== ENCOUNTER 2018-07-24 18:54 | Inpatient (IN) ==
[2018-07-24 20:02] LABS: Basophils % 0.3 % (0.0-0.8); Eosinophils # 0.1 10*3/uL (0.0-0.87); Hematocrit 32.2 VOL% (35.7-47.0); Hemoglobin 10.5 GM/DL (12.0-16.0); Immature Granulocytes Absolute 0.14 #; Lymphocytes # 0.7 10*3/uL (1.4-4.0); Lymphocytes % 5.2 % (21.3-54.2); Mean Corpuscular HGB Conc 32.6 GM/DL (32-36); Mean Corpuscular Hemoglobin 32 PG (27-34); Mean Corpuscular Volume 96.7 FL (87-102); Mean Platelet Volume 12.4 FL (9.6-12.0); NRBC # 0.04 10*3/uL; Neutrophils # 12.2 10*3/uL (1.4-7.4); Neutrophils % 85.5 % (38.7-73.9); Platelet Count 106 T/CUMM (130-400); Red Blood Count 3.33 MC/CUMM (3.8-5.5); Red Cell Distribution Width 14.7 % (9.3-17.3); White Blood Count 14.2 T/CUMM (4-12)
[2018-07-24 20:23] LABS: Bilirubin,Total 0.9 MG/DL (0.2-1.0); Osmolality,Calculated 275.2 MOS/KG (273-304); Potassium 4.2 MMOL/L (3.5-5.1); Total Protein 6.8 G/DL (6.4-8.3)
[2018-07-24] MEDS ORDERED: CEFEPIME 2,000 MG in SODIUM CHLORIDE 0.9% 100 ML IV STA (20:55)
[2018-07-24] MEDS ORDERED: VANCOMYCIN INJ 1,000 MG in SODIUM CHLORIDE 0.9% 250 ML IV STA (20:55)
[2018-07-24 22:32] LABS: VBG Base Excess 3.2 MEQ/L (0-4); VBG HCO3 27.3 MEQ/L (24-28); VBG Oxygen Saturation 98.8 %; VBG PCO2 39.9 MMHG (41-51); VBG PH 7.445
[2018-07-24] MEDS ORDERED: ALBUTEROL/IPRATROPIUM 3 ML NEB RESP TX PRN (22:44)
[2018-07-24] MEDS ORDERED: DEXTROSE 50% 25 GM/50 ML VIAL IV PRN (22:51)
[2018-07-24] MEDS ORDERED: GLUCAGON 1 MG VIAL IM PRN (22:51)
[2018-07-24] MEDS ORDERED: ONDANSETRON 4 MG/2 ML VIAL IV PRN (22:51)
[2018-07-25] MEDS: ALBUTEROL 2.5 MG/3 ML NEB RESP TX SCH ×4 (01:16→19:20)
[2018-07-25] MEDS: ACETAMINOPHEN 325 MG TABLET PO PRN (06:45)
[2018-07-25 08:04] LABS: Calcium 8.8 MG/DL (8.5-10.1); Osmolality,Calculated 278.1 MOS/KG (273-304); Potassium 4.1 MMOL/L (3.5-5.1)
[2018-07-25] MEDS: INSULIN REGULAR 100 UNIT/ML SUBCUT SCH ×4 (09:01→20:59)
[2018-07-25] MEDS: guaiFENesin/DM ER 600-30 MG TABLET PO SCH ×2 (09:02→21:32)
[2018-07-25] MEDS: PANTOPRAZOLE 40 MG TABLET PO SCH (09:02)
[2018-07-25] MEDS: CALCIUM ACETATE 667 MG CAPSULE PO SCH (16:49)
[2018-07-25] MEDS: CEFEPIME 1,000 MG in SODIUM CHLORIDE 0.9% 100 ML IV SCH (23:28)
[2018-07-26] MEDS: ALBUTEROL 2.5 MG/3 ML NEB RESP TX SCH ×4 (00:32→19:29)
[2018-07-26 05:58] LABS: Basophils % 0.4 % (0.0-0.8); Eosinophils # 0.3 10*3/uL (0.0-0.87); Eosinophils % 3.8 % (0.00-10.9); Hematocrit 32.1 VOL% (35.7-47.0); Hemoglobin 10.3 GM/DL (12.0-16.0); Immature Granulocytes Absolute 0.07 #; Lymphocytes # 0.8 10*3/uL (1.4-4.0); Mean Corpuscular HGB Conc 32.1 GM/DL (32-36); Mean Corpuscular Hemoglobin 32 PG (27-34); Mean Corpuscular Volume 98.8 FL (87-102); Mean Platelet Volume 12.6 FL (9.6-12.0); Monocytes # 0.6 10*3/uL (0.11-0.8); Monocytes % 8.4 % (1.7-12.7); NRBC # 0.02 10*3/uL; Neutrophils # 5.1 10*3/uL (1.4-7.4); Neutrophils % 74.4 % (38.7-73.9); Platelet Count 106 T/CUMM (130-400); Red Blood Count 3.25 MC/CUMM (3.8-5.5); Red Cell Distribution Width 15.1 % (9.3-17.3); White Blood Count 6.9 T/CUMM (4-12)
[2018-07-26 06:19] LABS: Calcium 9.2 MG/DL (8.5-10.1); Osmolality,Calculated 278.1 MOS/KG (273-304); Potassium 4.2 MMOL/L (3.5-5.1)
[2018-07-26] MEDS: INSULIN REGULAR 100 UNIT/ML SUBCUT SCH ×4 (07:49→21:32)
[2018-07-26] MEDS: ATORVASTATIN 40 MG TABLET PO SCH ×2 (07:50→08:33)
[2018-07-26] MEDS: CALCIUM ACETATE 667 MG CAPSULE PO SCH ×3 (07:50→16:31)
[2018-07-26] MEDS: PANTOPRAZOLE 40 MG TABLET PO SCH ×2 (07:50→08:33)
[2018-07-26] MEDS: guaiFENesin/DM ER 600-30 MG TABLET PO SCH ×3 (07:50→21:33)
[2018-07-26] MEDS: DONEPEZIL 5 MG TABLET PO SCH ×2 (07:51→08:32)
[2018-07-26] MEDS: DORNASE ALFA 2.5 MG/2.5 ML VIAL RESP TX SCH ×2 (09:26→19:29)
[2018-07-26] MEDS ORDERED: VANCOMYCIN INJ 1,500 MG in SODIUM CHLORIDE 0.9% 500 ML IV ONE (12:30)
[2018-07-26] MEDS ORDERED: VANCOMYCIN INJ 500 MG in SODIUM CHLORIDE 0.9% 100 ML IV PRN (15:00)
[2018-07-26] MEDS: CEFEPIME 1,000 MG in SODIUM CHLORIDE 0.9% 100 ML IV SCH (21:33)
[2018-07-27] MEDS: ALBUTEROL 2.5 MG/3 ML NEB RESP TX SCH ×4 (00:21→19:02)
[2018-07-27 04:40] LABS: Basophils % 0.4 % (0.0-0.8); Eosinophils # 0.2 10*3/uL (0.0-0.87); Eosinophils % 4.6 % (0.00-10.9); Hematocrit 28.5 VOL% (35.7-47.0); Hemoglobin 9.2 GM/DL (12.0-16.0); Immature Granulocytes % 0.6 %; Immature Granulocytes Absolute 0.03 #; Lymphocytes # 0.6 10*3/uL (1.4-4.0); Lymphocytes % 12.2 % (21.3-54.2); Mean Corpuscular HGB Conc 32.3 GM/DL (32-36); Mean Corpuscular Hemoglobin 31 PG (27-34); Mean Corpuscular Volume 96.6 FL (87-102); Mean Platelet Volume 12.3 FL (9.6-12.0); Monocytes # 0.4 10*3/uL (0.11-0.8); Monocytes % 8.2 % (1.7-12.7); Neutrophils # 3.7 10*3/uL (1.4-7.4); Platelet Count 120 T/CUMM (130-400); Red Blood Count 2.95 MC/CUMM (3.8-5.5); Red Cell Distribution Width 15.2 % (9.3-17.3)
[2018-07-27 05:05] LABS: Albumin 2.4 G/DL (3.4-5.0); Osmolality,Calculated 278.7 MOS/KG (273-304); Potassium 3.6 MMOL/L (3.5-5.1); Total Protein 6.5 G/DL (6.4-8.3)
[2018-07-27] MEDS: DORNASE ALFA 2.5 MG/2.5 ML VIAL RESP TX SCH ×2 (07:33→19:15)
[2018-07-27] MEDS: INSULIN REGULAR 100 UNIT/ML SUBCUT SCH ×4 (08:00→21:30)
[2018-07-27] MEDS: CALCIUM ACETATE 667 MG CAPSULE PO SCH ×3 (09:07→17:11)
[2018-07-27] MEDS: DONEPEZIL 5 MG TABLET PO SCH (09:07)
[2018-07-27] MEDS: PANTOPRAZOLE 40 MG TABLET PO SCH (09:08)
[2018-07-27] MEDS: ATORVASTATIN 40 MG TABLET PO SCH (09:08)
[2018-07-27] MEDS: guaiFENesin/DM ER 600-30 MG TABLET PO SCH ×2 (09:08→21:28)
[2018-07-27] MEDS ORDERED: MEROPENEM 1,000 MG in SODIUM CHLORIDE 0.9% 100 ML IV SCH (09:30)
[2018-07-27] MEDS: methylPREDNISolone SOD SUC 125 MG/2 ML VIAL IV SCH ×2 (10:19→15:37)
[2018-07-27] MEDS: LEVOFLOXACIN INJ 500 MG in PREMIX 1 EACH IV ONE ×2 (10:20→14:50)
[2018-07-27] MEDS: PIPERACILLIN/TAZOBACTAM 3,375 MG in SODIUM CHLORIDE 0.9% 100 ML IV SCH ×2 (15:36→21:29)
[2018-07-28] MEDS: ALBUTEROL 2.5 MG/3 ML NEB RESP TX SCH (00:18)
[2018-07-28] MEDS: methylPREDNISolone SOD SUC 125 MG/2 ML VIAL IV SCH ×2 (01:12→08:53)
[2018-07-28] MEDS: ACETAMINOPHEN 325 MG TABLET PO PRN (03:10)
[2018-07-28] MEDS: DONEPEZIL 5 MG TABLET PO SCH (08:45)
[2018-07-28] MEDS: guaiFENesin/DM ER 600-30 MG TABLET PO SCH (08:45)
[2018-07-28] MEDS: CALCIUM ACETATE 667 MG CAPSULE PO SCH ×2 (08:45→11:55)
[2018-07-28] MEDS: ATORVASTATIN 40 MG TABLET PO SCH (08:48)
[2018-07-28] MEDS: PIPERACILLIN/TAZOBACTAM 3,375 MG in SODIUM CHLORIDE 0.9% 100 ML IV SCH ×2 (08:52→14:37)
[2018-07-28] MEDS: INSULIN REGULAR 100 UNIT/ML SUBCUT SCH ×2 (08:52→11:55)
[2018-07-28] MEDS: PANTOPRAZOLE 40 MG TABLET PO SCH (08:53)
[2018-07-28] MEDS ORDERED: VANCOMYCIN INJ 500 MG in SODIUM CHLORIDE 0.9% 100 ML IV ONE (13:00)
[2018-07-28 16:35] VITALS: BP 157/43
== END 2018-07-28 16:32 | disposition home health service (06) | DRG 193 ==
LOC: EDUNIT# → EDBD → N.ED 18:54 → SUATTDRO 22:51 → N.EDINP 22:51 → N.2E 23:26
PROVIDERS: ADMIT Internal Medicine; ATTEND Internal Medicine

== ENCOUNTER 2019-07-03 21:01 | Inpatient (IN) ==
[2019-07-04] MEDS ORDERED: DOCUSATE SODIUM 100 MG CAPSULE PO PRN (00:43)
[2019-07-04] MEDS ORDERED: ONDANSETRON 4 MG/2 ML VIAL IV PRN (00:43)
[2019-07-04] MEDS ORDERED: DEXTROSE 50% 25 GM/50 ML VIAL IV PRN (00:48)
[2019-07-04] MEDS ORDERED: GLUCAGON 1 MG VIAL IM PRN (00:48)
[2019-07-04] MEDS ORDERED: DEXTROSE 10% 250 ML IV PRN (00:53)
[2019-07-04] MEDS: ACETAMINOPHEN 325 MG TABLET PO PRN (01:45)
[2019-07-04 07:07] LABS: Basophils % 0.6 % (0.0-0.8); Eosinophils # 0.3 10*3/uL (0.0-0.87); Eosinophils % 4.2 % (0.00-10.9); Hematocrit 31.9 VOL% (35.7-47.0); Hemoglobin 10.2 GM/DL (12.0-16.0); Immature Granulocytes % 0.3 %; Immature Granulocytes Absolute 0.02 #; Lymphocytes # 0.7 10*3/uL (1.4-4.0); Lymphocytes % 11.1 % (21.3-54.2); Mean Corpuscular Volume 94.7 FL (87-102); Mean Platelet Volume 11.2 FL (9.6-12.0); Monocytes % 8.9 % (1.7-12.7); Neutrophils % 74.9 % (38.7-73.9); Platelet Count 154 T/CUMM (130-400); Red Blood Count 3.37 MC/CUMM (3.8-5.5); Red Cell Distribution Width 15.1 % (9.3-17.3); White Blood Count 6.4 T/CUMM (4-12)
[2019-07-04 07:32] LABS: Albumin 2.3 G/DL (3.4-5.0); Bilirubin,Total 0.8 MG/DL (0.2-1.0); Total Protein 6.6 G/DL (6.4-8.3)
[2019-07-04 08:43] LABS: Hepatitis B Core IgM Quant 0.17 Index; Hepatitis B Surface Ag Quant < 0.10 Index; Hepatitis B Surface Ag Result Negative (Negative); Hepatitis C Virus Ab Quant 0.09 Index; Hepatitis C Virus Ab Result Negative (Negative)
[2019-07-04 09:58] LABS: Neutrophils,Peritoneal Fluid 17 %; RBC,Peritoneal Fluid 9 T/CUMM
[2019-07-04] MEDS: INSULIN LISPRO 100 UNIT/ML SUBCUT SCH ×4 (10:12→21:00)
[2019-07-04] MEDS ORDERED: EPOETIN ALFA 2,000 UNIT/1 ML VIAL IV PRN (15:22)
[2019-07-04 16:27] LABS: % Iron Saturation 26.3 % (18-50)
[2019-07-05 06:27] LABS: Basophils # 0.1 10*3/uL (0.0-0.2); Basophils % 0.6 % (0.0-0.8); Eosinophils # 0.1 10*3/uL (0.0-0.87); Eosinophils % 0.9 % (0.00-10.9); Hemoglobin 10.4 GM/DL (12.0-16.0); Immature Granulocytes % 0.3 %; Immature Granulocytes Absolute 0.03 #; Lymphocytes # 0.7 10*3/uL (1.4-4.0); Lymphocytes % 7.1 % (21.3-54.2); Mean Corpuscular HGB Conc 32.5 GM/DL (32-36); Mean Corpuscular Volume 93.8 FL (87-102); Mean Platelet Volume 11.3 FL (9.6-12.0); Monocytes % 7.6 % (1.7-12.7); Neutrophils % 83.5 % (38.7-73.9); Platelet Count 138 T/CUMM (130-400); Red Blood Count 3.41 MC/CUMM (3.8-5.5); White Blood Count 9.6 T/CUMM (4-12)
[2019-07-05 06:38] LABS: Osmolality,Calculated 275.2 MOS/KG (273-304)
[2019-07-05 08:46] LABS: INR 1.1; PT Patient Result 11.4 SECS (9.6-12.2)
[2019-07-05] MEDS: INSULIN LISPRO 100 UNIT/ML SUBCUT SCH ×4 (09:11→20:46)
[2019-07-05] MEDS ORDERED: GABAPENTIN 100 MG CAPSULE PO PRN (09:49)
[2019-07-05] MEDS: CALCIUM ACETATE 667 MG CAPSULE PO SCH ×2 (14:02→17:41)
[2019-07-05] MEDS: CARVEDILOL 6.25 MG TABLET PO SCH ×2 (15:54→20:46)
[2019-07-05] MEDS: ASPIRIN EC 81 MG TABLET PO SCH (17:41)
[2019-07-05] MEDS: ACETAMINOPHEN 325 MG TABLET PO PRN (20:46)
[2019-07-06 05:59] LABS: Basophils % 0.5 % (0.0-0.8); Eosinophils # 0.1 10*3/uL (0.0-0.87); Eosinophils % 1.4 % (0.00-10.9); Hematocrit 32.8 VOL% (35.7-47.0); Hemoglobin 10.3 GM/DL (12.0-16.0); Immature Granulocytes % 0.4 %; Immature Granulocytes Absolute 0.03 #; Lymphocytes # 0.6 10*3/uL (1.4-4.0); Lymphocytes % 7.5 % (21.3-54.2); Mean Corpuscular HGB Conc 31.4 GM/DL (32-36); Mean Corpuscular Volume 97.3 FL (87-102); Mean Platelet Volume 11.7 FL (9.6-12.0); Monocytes % 7.1 % (1.7-12.7); Neutrophils % 83.1 % (38.7-73.9); Platelet Count 128 T/CUMM (130-400); Red Blood Count 3.37 MC/CUMM (3.8-5.5); Red Cell Distribution Width 15.4 % (9.3-17.3); White Blood Count 8.6 T/CUMM (4-12)
[2019-07-06] MEDS: INSULIN LISPRO 100 UNIT/ML SUBCUT SCH ×4 (09:15→21:38)
[2019-07-06] MEDS: CALCIUM ACETATE 667 MG CAPSULE PO SCH ×3 (09:15→17:06)
[2019-07-06] MEDS: CARVEDILOL 6.25 MG TABLET PO SCH ×2 (09:16→21:43)
[2019-07-06] MEDS: ASPIRIN EC 81 MG TABLET PO SCH (09:16)
[2019-07-06] MEDS ORDERED: LEVOFLOXACIN INJ 500 MG in PREMIX 1 EACH IV SCH (17:00)
[2019-07-06] MEDS ORDERED: LEVOFLOXACIN INJ 750 MG in PREMIX 1 EACH IV SCH (18:00)
[2019-07-06] MEDS: ACETAMINOPHEN 325 MG TABLET PO PRN (21:38)
[2019-07-07 06:12] LABS: Basophils % 0.5 % (0.0-0.8); Eosinophils # 0.1 10*3/uL (0.0-0.87); Eosinophils % 1.6 % (0.00-10.9); Hematocrit 34.2 VOL% (35.7-47.0); Hemoglobin 10.9 GM/DL (12.0-16.0); Immature Granulocytes % 0.4 %; Immature Granulocytes Absolute 0.03 #; Lymphocytes # 0.6 10*3/uL (1.4-4.0); Mean Corpuscular HGB Conc 31.9 GM/DL (32-36); Mean Corpuscular Volume 97.7 FL (87-102); Mean Platelet Volume 11.5 FL (9.6-12.0); Monocytes % 7.7 % (1.7-12.7); Neutrophils % 81.8 % (38.7-73.9); Platelet Count 130 T/CUMM (130-400); Red Cell Distribution Width 15.3 % (9.3-17.3); White Blood Count 7.4 T/CUMM (4-12)
[2019-07-07 06:38] LABS: Bilirubin,Total 1.3 MG/DL (0.2-1.0); Calcium 8.4 MG/DL (8.5-10.1); Osmolality,Calculated 282.8 MOS/KG (273-304); Total Protein 5.7 G/DL (6.4-8.3)
[2019-07-07] MEDS: INSULIN LISPRO 100 UNIT/ML SUBCUT SCH ×2 (08:23→14:08)
[2019-07-07] MEDS: CALCIUM ACETATE 667 MG CAPSULE PO SCH ×2 (08:25→14:15)
[2019-07-07] MEDS: ASPIRIN EC 81 MG TABLET PO SCH (14:15)
[2019-07-07] MEDS: CARVEDILOL 6.25 MG TABLET PO SCH (14:16)
[2019-07-07 16:43] VITALS: BP 124/54
== END 2019-07-07 18:30 | disposition home or self-care (01) | DRG 432 ==
LOC: INTOOBSV 22:40 → N.5E 22:40
PROVIDERS: ADMIT Internal Medicine; ATTEND Hospitalist